=== PATIENT | female | born 1980 | race Caucasian/White ===

== ENCOUNTER → 2017-12-26 | Outpatient (CLI) | payer OTHER ==
--- NOTE | 2017-12-26 14:45 | US ---
EXAMINATION TYPE: US thyroid st tissue head/neck DATE OF EXAM: 12/26/2017 COMPARISON: NONE CLINICAL HISTORY: K11.20 Sialoadenitis, Unspecified. Pain along bilateral jawline x couple months Scanned bilateral jawline and submandibular: bilateral submandibular lymph nodes seen with largest on right = 1.9cm and largest on left = 1.8cm IMPRESSION: 1. Submandibular lymph nodes bilaterally
== END | disposition home or self-care (01) ==
LOC: RADUSWWP 14:02
PROVIDERS: ATTEND Otolaryngology Otolaryngic Allergy
DX: K11.20 Sialoadenitis, unspecified (principal)
CPT/HCPCS: 76536

== ENCOUNTER → 2018-01-21 | Outpatient (CLI) | payer OTHER ==
--- NOTE | 2018-01-21 17:55 | CT ---
EXAMINATION TYPE: CT soft tissue neck w con DATE OF EXAM: 01/21/2018 5:42 PM COMPARISON: NONE HISTORY: Enlarged lymph nodes and salivary gland pain. CT DLP: 637 mGycm Automated exposure control for dose reduction was used. CONTRAST: CT scan of the neck is performed following with IV Contrast, patient injected with 100ml mL of Isovue M300. Axial images are obtained, coronal and sagittal reformatted images are reviewed. FINDINGS: There is normal branching pattern of the great vessels on the aortic arch. There is normal contrast o pacification of the carotid arteries and jugular veins. There is normal contrast in the vertebral art eries. Thyroid gland is symmetric. Submandibular salivary glands are fairly symmetric. Parotid glands are symmetric. I see no significan t cervical adenopathy. There are cervical lymph nodes measure less than 1 cm. Cervical spine show some straightening. Disc spaces are fairly normal. There is slight narrowing at C 5-6 disc space. There is normal aeration of the visualized paranasal sinuses. There is no evidence of an orbital mass . Epiglottis is normal. Subglottic trachea appears normal. There is no evidence of a pharyngeal mass. T he tonsils and adenoids appear normal. IMPRESSION: Negative CT scan of the cervical soft tissues. I see no significant cervical adenopathy.
== END | disposition home or self-care (01) ==
LOC: RADCTMAIN 17:03
PROVIDERS: ATTEND Otolaryngology Otolaryngic Allergy
DX: Z01.818 Encounter for other preprocedural examination (principal); R43.2 Parageusia
CPT/HCPCS: 70491; Q9967

== ENCOUNTER 2018-01-27 05:58 | Inpatient (IN) | payer OTHER ==
[2018-01-27] MEDS ORDERED: MORPHINE SULFATE 4MG/4ML SYRG IVP STA (06:30)
[2018-01-27] MEDS ORDERED: SODIUM CHLORIDE 0.9% 1,000 ML IV STA (06:30)
[2018-01-27] MEDS ORDERED: ONDANSETRON 4 MG/2 ML VIAL IVP STA ×2 (06:30→07:54)
--- NOTE | 2018-01-27 06:33 | ED ---
General Adult HPI - General Source: patient, RN notes reviewed Mode of arrival: ambulatory Limitations: no limitations <Skyler Carbone - Last Filed: 01/27/18 06:34> <Sergio Moura - Last Filed: 01/27/18 09:52> - General Chief complaint: Abdominal Pain Stated complaint: ABD PAIN,NAUSEA Time Seen by Provider: 01/27/18 06:00 - History of Present Illness Initial comments: This is a 37-year-old female presents emergency Department complaining of mid abdominal pain and nausea. Patient states the symptoms started early Saturday and have persisted throughout the weekend. Patient states she didn't eat anything all day Saturday but last night she decided try to eat something and since then her symptoms been worse. Patient denies any vomiting. Patient denies any diarrhea. Patient states she's had a cholecystectomy and gastritis in the past. Patient denies any fevers or chills. Patient denies chest pain difficulty breathing or shortness of breath. Patient denies any dysuria hematuria urinary frequency. Patient denies any back pain. (Skyler Carbone) - Related Data Home Medications Medication Instructions Recorded Confirmed Multivitamins, Thera [Multivitamin 1 tab PO DAILY 01/27/18 01/27/18 (formulary)] buPROPion SR [Wellbutrin Sr] 100 mg PO DAILY 01/27/18 01/27/18 Allergies Allergy/AdvReac Type Severity Reaction Status Date / Time No Known Allergies Allergy Verified 01/27/18 07:05 Review of Systems ROS Other: All systems not noted in ROS Statement are negative. <Skyler Carbone - Last Filed: 01/27/18 06:34> ROS Other: All systems not noted in ROS Statement are negative. <Sergio Moura - Last Filed: 01/27/18 09:52> ROS Statement: Those systems with pertinent positive or pertinent negative responses have been documented in the HPI. Past Medical History Additional Past Medical History / Comment(s): Heart murmur. History of Any Multi-Drug Resistant Organisms: None Reported Past Surgical History: Cholecystectomy Past Psychological History: Anxiety, Depression Smoking Status: Never smoker Past Alcohol Use History: Rare Past Drug Use History: None Reported <Skyler Carbone - Last Filed: 01/27/18 06:34> General Exam Limitations: no limitations <Skyler Carbone - Last Filed: 01/27/18 06:34> - General Exam Comments Initial Comments: GENERAL: Patient is well-developed and well-nourished. Patient is nontoxic and well- hydrated and is in moderate distress. ENT: Neck is soft and supple. No significant lymphadenopathy is noted. Oropharynx is clear. Moist mucous membranes. Neck has full range of motion without eliciting any pain. EYES: The sclera were anicteric and conjunctiva were pink and moist. Extraocular movements were intact and pupils were equal round and reactive to light. Eyelids were unremarkable. PULMONARY: Unlabored respirations. Good breath sounds bilaterally. No audible rales rhonchi or wheezing was noted. CARDIOVASCULAR: There is a regular rate and rhythm without any murmurs gallops or rubs. ABDOMEN: Mild epigastric abdominal pain. No palpable organomegaly was noted. There is no palpable pulsatile mass. SKIN: Skin is clear with no lesions or rashes and otherwise unremarkable. NEUROLOGIC: Patient is alert and oriented x3. Cranial nerves II through XII are grossly intact. Motor and sensory are also intact. Normal speech, volume and content. Symmetrical smile. MUSCULOSKELETAL: Normal extremities with adequate strength and full range of motion. No lower extremity swelling or edema. No calf tenderness. LYMPHATICS: No significant lymphadenopathy is noted PSYCHIATRIC: Normal psychiatric evaluation. Normal interpersonal interactions appears functionally intact in deals appropriately with others. No signs of depression. No signs of anxiety. (Skyler Carbone) Course <Skyler Carbone - Last Filed: 01/27/18 06:34> <Sergio Morua - Last Filed: 01/27/18 09:52> Vital Signs 01/27/18 01/27/18 01/27/18 06:01 06:43 08:37 Temperature 98.3 F Pulse Rate 71 54 L 66 Respiratory 18 16 16 Rate Blood Pressure 135/83 95/61 106/77 O2 Sat by Pulse 100 98 96 Oximetry 01/27/18 09:00 Temperature Pulse Rate 75 Respiratory 16 Rate Blood Pressure 104/61 O2 Sat by Pulse 100 Oximetry - Reevaluation(s) Reevaluation #1: 01/27/18 07:05 Patient's care is signed out at shift change awaiting laboratory studies. ( Sergio Moura) Reevaluation #2: 01/27/18 07:05 On reevaluation, patient has persistent nausea, appears very uncomfortable, was complaining of severe abdominal pain. (Sergio Moura) EKG Findings - EKG Comments: EKG Findings:: EKG: Sinus bradycardia with sinus arrhythmia, rate of 59, WI interval 126, QRS duration 86, QTC 449 <Sergio Moura - Last Filed: 01/27/18 09:52> Medical Decision Making <Skyler Carbone - Last Filed: 01/27/18 06:34> - Lab Data Result diagrams: 01/27/18 06:16 01/27/18 06:16 <Sergio Moura - Last Filed: 01/27/18 09:52> - Medical Decision Making Dr. Moura will take over the care of this patient at 7 AM (Skyler Carbone) CT is performed for this patient with nausea and epigastric abdominal pain. There is significant dilatation of the stomach and proximal duodenum with concern for SMA syndrome. Case is discussed with Dr. Smith, who is able to evaluate the patient emergency department. Patient will be kept nothing by mouth, NG tube in place. Admitted for both surgical and GI consultation. (Sergio Moura) - Lab Data Lab Results 01/27/18 01/27/18 01/27/18 Range/Units 06:16 06:16 06:16 WBC 6.7 (3.8-10.6) k/uL RBC 5.12 (3.80-5.40) m/uL Hgb 14.9 (11.4-16.0) gm/dL Hct 43.6 (34.0-46.0) % MCV 85.2 (80.0-100.0) fL MCH 29.1 (25.0-35.0) pg MCHC 34.2 (31.0-37.0) g/dL RDW 12.8 (11.5-15.5) % Plt Count 269 (150-450) k/uL Neutrophils % 83 % Lymphocytes % 11 % Monocytes % 4 % Eosinophils % 1 % Basophils % 0 % Neutrophils # 5.5 (1.3-7.7) k/uL Lymphocytes # 0.7 L (1.0-4.8) k/uL Monocytes # 0.3 (0-1.0) k/uL Eosinophils # 0.1 (0-0.7) k/uL Basophils # 0.0 (0-0.2) k/uL Sodium 144 (137-145) mmol/L Potassium 4.3 (3.5-5.1) mmol/L Chloride 110 H (98-107) mmol/L Carbon Dioxide 20 L (22-30) mmol/L Anion Gap 14 mmol/L BUN 7 (7-17) mg/dL Creatinine 0.70 (0.52-1.04) mg/dL Est GFR (CKD-EPI)AfAm >90 (>60 ml/min/1.73 sqM) Est GFR (CKD-EPI)NonAf >90 (>60 ml/min/1.73 sqM) Glucose 97 (74-99) mg/dL Plasma Lactic Acid Tee (0.7-2.0) mmol/L Calcium 9.7 (8.4-10.2) mg/dL Total Bilirubin 0.5 (0.2-1.3) mg/dL AST 35 (14-36) U/L ALT 33 (9-52) U/L Alkaline Phosphatase 53 (38-126) U/L Total Protein 7.5 (6.3-8.2) g/dL Albumin 4.5 (3.5-5.0) g/dL Amylase 68 (30-110) U/L Lipase 79 (23-300) U/L Urine Color Light Yellow Urine Appearance Clear (Clear) Urine pH 5.5 (5.0-8.0) Ur Specific [place] 1.004 (1.001-1.035) Urine Protein Negative (Negative) Urine Glucose (UA) Negative (Negative) Urine Ketones Negative (Negative) Urine Blood Negative (Negative) Urine Nitrite Negative (Negative) Urine Bilirubin Negative (Negative) Urine Urobilinogen <2.0 (<2.0) mg/dL Ur Leukocyte Esterase Negative (Negative) Urine HCG, Qual (Not Detectd) Urine Opiates Screen (NotDetected) Ur Oxycodone Screen (NotDetected) Urine Methadone Screen (NotDetected) Ur Propoxyphene Screen (NotDetected) Ur Barbiturates Screen (NotDetected) U Tricyclic Antidepress (NotDetected) Ur Phencyclidine Scrn (NotDetected) Ur Amphetamines Screen (NotDetected) U Methamphetamines Scrn (NotDetected) U Benzodiazepines Scrn (NotDetected) Urine Cocaine Screen (NotDetected) U Marijuana (THC) Screen (NotDetected) 01/27/18 01/27/18 01/27/18 Range/Units 06:16 06:16 06:35 WBC (3.8-10.6) k/uL RBC (3.80-5.40) m/uL Hgb (11.4-16.0) gm/dL Hct (34.0-46.0) % MCV (80.0-100.0) fL MCH (25.0-35.0) pg MCHC (31.0-37.0) g/dL RDW (11.5-15.5) % Plt Count (150-450) k/uL Neutrophils % % Lymphocytes % % Monocytes % % Eosinophils % % Basophils % % Neutrophils # (1.3-7.7) k/uL Lymphocytes # (1.0-4.8) k/uL Monocytes # (0-1.0) k/uL Eosinophils # (0-0.7) k/uL Basophils # (0-0.2) k/uL Sodium (137-145) mmol/L Potassium (3.5-5.1) mmol/L Chloride (98-107) mmol/L Carbon Dioxide (22-30) mmol/L Anion Gap mmol/L BUN (7-17) mg/dL Creatinine (0.52-1.04) mg/dL Est GFR (CKD-EPI)AfAm (>60 ml/min/1.73 sqM) Est GFR (CKD-EPI)NonAf (>60 ml/min/1.73 sqM) Glucose (74-99) mg/dL Plasma Lactic Acid Tee 0.7 (0.7-2.0) mmol/L Calcium (8.4-10.2) mg/dL Total Bilirubin (0.2-1.3) mg/dL AST (14-36) U/L ALT (9-52) U/L Alkaline Phosphatase (38-126) U/L Total Protein (6.3-8.2) g/dL Albumin (3.5-5.0) g/dL Amylase (30-110) U/L Lipase (23-300) U/L Urine Color Urine Appearance (Clear) Urine pH (5.0-8.0) Ur Specific [place] (1.001-1.035) Urine Protein (Negative) Urine Glucose (UA) (Negative) Urine Ketones (Negative) Urine Blood (Negative) Urine Nitrite (Negative) Urine Bilirubin (Negative) Urine Urobilinogen (<2.0) mg/dL Ur Leukocyte Esterase (Negative) Urine HCG, Qual Not Detected (Not Detectd) Urine Opiates Screen Not Detected (NotDetected) Ur Oxycodone Screen Not Detected (NotDetected) Urine Methadone Screen Not Detected (NotDetected) Ur Propoxyphene Screen Not Detected (NotDetected) Ur Barbiturates Screen Not Detected (NotDetected) U Tricyclic Antidepress Not Detected (NotDetected) Ur Phencyclidine Scrn Not Detected (NotDetected) Ur Amphetamines Screen Not Detected (NotDetected) U Methamphetamines Scrn Not Detected (NotDetected) U Benzodiazepines Scrn Not Detected (NotDetected) Urine Cocaine Screen Not Detected (NotDetected) U Marijuana (THC) Screen Detected H (NotDetected) Disposition <Skyler Carbone - Last Filed: 01/27/18 06:34> Decision to Admit Reason: Admit from EC Decision Date: 01/27/18 Decision Time: 09:52 <Sergio Moura - Last Filed: 01/27/18 09:52> Clinical Impression: Small bowel obstruction Disposition: ADMITTED IP TO THIS [facility] Condition: Stable Referrals: Yennifer Mishra MD [Primary Care Provider] - 1-2 days
[2018-01-27 06:40] LABS: Appearance,Urine Clear (Clear); Basophils % (A) 0 %; Bilirubin,Urine Negative (Negative); Blood,Urine Negative (Negative); Color,Urine Light Yellow; Eosinophils # (A) 0.1 k/uL (0-0.7); Eosinophils % (A) 1 %; Glucose,Urine (UA) Negative (Negative); HCT 43.6 % (34.0-46.0); HGB 14.9 gm/dL (11.4-16.0); Ketones,Urine Negative (Negative); Leukocyte Esterase,Urine Negative (Negative); Lymphocytes # (A) 0.7 k/uL (1.0-4.8); Lymphocytes % (A) 11 %; MCH 29.1 pg (25.0-35.0); MCHC 34.2 g/dL (31.0-37.0); MCV 85.2 fL (80.0-100.0); Monocytes # (A) 0.3 k/uL (0-1.0); Monocytes % (A) 4 %; Neutrophils # (A) 5.5 k/uL (1.3-7.7); Neutrophils % (A) 83 %; Nitrite,Urine Negative (Negative); PH, Urine 5.5 (5.0-8.0); Platelet Count 269 k/uL (150-450); Protein,Urine Negative (Negative); RBC 5.12 m/uL (3.80-5.40); RDW 12.8 % (11.5-15.5); Specific Gravity,Urine 1.004 (1.001-1.035); Urobilinogen,Urine <2.0 mg/dL (<2.0); WBC 6.7 k/uL (3.8-10.6)
[2018-01-27 06:51] LABS: ALT 33 U/L (9-52); AST 35 U/L (14-36); Albumin 4.5 g/dL (3.5-5.0); Alkaline Phosphatase 53 U/L (38-126); Amylase 68 U/L (30-110); Anion Gap 14 mmol/L; Blood Urea Nitrogen 7 mg/dL (7-17); Calcium 9.7 mg/dL (8.4-10.2); Carbon Dioxide 20 mmol/L (22-30); Chloride 110 mmol/L (98-107); Glucose 97 mg/dL (74-99); Lipase 79 U/L (23-300); Potassium 4.3 mmol/L (3.5-5.1); Sodium 144 mmol/L (137-145); Total Bilirubin 0.5 mg/dL (0.2-1.3); Total Protein 7.5 g/dL (6.3-8.2)
--- NOTE | 2018-01-27 06:55 | XR ---
EXAM: XR Abdomen, 1 View CLINICAL HISTORY: ITS.REASON XR Reason: abdominal pain TECHNIQUE: Frontal supine view of the abdomen/pelvis. COMPARISON: No relevant prior studies available. FINDINGS: Gastrointestinal tract: Unremarkable. No dilation. Organs: Cholecystectomy noted. Bones/joints: Unremarkable. IMPRESSION: No acute findings.
[2018-01-27] MEDS ORDERED: FAMOTIDINE 20 MG/2 ML VIAL IV STA (07:02)
[2018-01-27] MEDS ORDERED: MAG HYDROX/AL HYDROX/SIMETH 30 ML, HYOSCYAMINE ELIXIR 10 ML, CIMETIDINE HCL 300 MG, LID... PO STA ×4 (07:03)
[2018-01-27] MEDS ORDERED: IOPAMIDOL-300 CONTRAST 30 ML VIAL (ORAL USE) PO PRN (07:07)
[2018-01-27] MEDS ORDERED: RX INFO: IV CONTRAST WAS GIVEN 1 EACH MISC MISCELLANE PRN (07:07)
--- NOTE | 2018-01-27 08:06 | CT ---
EXAMINATION TYPE: CT abdomen pelvis w con DATE OF EXAM: 01/27/2018 COMPARISON: NONE HISTORY: 37-year-old female Pain, constipation TECHNIQUE: Contiguous axial scanning of the abdomen and pelvis following administration of 100 ml Omn ipaque 300 IV contrast. Delayed images through the kidneys and coronal/sagittal reconstructions perf ormed. Patient declined the oral prep. CT DLP: 454.6 mGycm Automated exposure control for dose reduction was used. FINDINGS: Heart normal size without pericardial effusion. Lung bases clear without pleural effusion. Prominent ingested fluid and debris distending the stomach. The duodenum is also fluid distended selam uring up to 3.6 cm. Relative narrowing at the third portion of the duodenum. The aorto mesenteric dis tance is 7 mm (decreased), axial image 34, and an aortomesenteric angle 33 degrees which is low emilia l. Some focal fat along the anterior falciform ligament. Mild prominence to the bile ducts status post c holecystectomy. Portal venous system is patent. Adrenal glands, kidneys, spleen, pancreas show no gross abnormality. Scattered nonenlarged couple bor derline sized mesenteric lymph nodes measuring up to 6 mm, for example, axial image 42. Prominent fluid filled small bowel loops in the lower abdomen and pelvis without any transition point or abnormal dilatation of these bowel loops. Colonic stool is present primarily in the rectum. There is mild to moderate stool. No free fluid or free air. Bladder is urine distended. Uterus and left ovary are visualized. Right ovary not clearly indicated f rom adjacent bowel loops. No abnormal fluid collection in the pelvis or evidence of pelvic lymphadeno torres. Bones: No osseous destructive process. IMPRESSION: 1. MARKED DISTENTION OF THE STOMACH WITH FLUID AND INGESTED DEBRIS. THERE IS ALSO FLUID DISTENTION WI TH MILD DILATATION OF THE DUODENUM BUT WITH CALIBER CHANGE AT THE THIRD PORTION OF THE DUODENUM. FIND INGS BY OBJECTIVE MEASURES ARE EQUIVOCAL FOR SMA/NUTCRACKER SYNDROME. CORRELATE TO THE TIME SINCE PATIENT'S ORAL INTAKE ESPECIALLY SINCE PATIENT DECLINED RECEIVING ORAL CONTRAST. FURTHER CLINICAL CO RRELATION RECOMMENDED FOR THE POSSIBILITY OF SMA SYNDROME. 2. PROMINENT FLUID-FILLED SMALL BOWEL LOOPS IN THE LOWER ABDOMEN AND PELVIS COULD REFLECT ENTERITIS. 3. COLONIC STOOL IS LIMITED PRIMARILY TO THE RECTUM WHERE THERE IS MILD TO MODERATE AMOUNT OF STOOL.
[2018-01-27] MEDS ORDERED: METOCLOPRAMIDE 5 MG/ML 2 ML VIAL IVP STA (08:13)
[2018-01-27 08:33] LABS: Amphetamine Screen,Urine Not Detected (NotDetected); Barbiturate Screen,Urine Not Detected (NotDetected); Benzodiazepines Screen,Urine Not Detected (NotDetected); Cocaine Screen,Urine Not Detected (NotDetected); Methadone Screen, Urine Not Detected (NotDetected); Opiate Screen,Urine Not Detected (NotDetected); Oxycodone Screen, Urine Not Detected (NotDetected); Phencyclidine Screen,Urine Not Detected (NotDetected); Tricyclic Antidepressant,Urine Not Detected (NotDetected); Urn Cannabinoid Scrn Detected (NotDetected)
[2018-01-27] MEDS ORDERED: NALOXONE 0.4 MG/ML 1 ML VIAL IV PRN (09:46)
[2018-01-27] MEDS ORDERED: ONDANSETRON 4 MG/2 ML VIAL IVP PRN (09:46)
--- NOTE | 2018-01-27 09:53 | P.GSCN ---
History of Present Illness Consult date: 01/27/18 Reason for Consult: Abdominal pain, partial bowel obstruction History of present illness: The patient is a 37-year-old white female who states that approximately 3 days ago she began having midepigastric abdominal pain. She states the pain became progressively worse when she tried to eat. She complains of nausea but no vomiting. She has not had a bowel movement for approximately 3 days. She states she has had no recent weight loss and was approximately 145 pounds. She denies any fever. A CAT scan was performed which reveals marked gastric dilatation with a dilatation of the small bowel to the third portion of the duodenum near the area of the superior mesenteric artery. An NG tube was placed and over thousand cc of liquid fluid was obtained. The patient had immediate decrease in her abdominal discomfort. Past surgical history: 1. Hemorrhoidectomy 2. Cholecystectomy Past medical history: Negative Medications: Wellbutrin Multivitamin ALLERGIES: Negative Reproductive history: Mr. Marcia Rousseau regular she is due to. Now 2 pregnancies 2 abortions Social history: Smoking: Negative Alcohol: Rarely Recreational drugs: Negative Review of systems: HEENT: Patient provided infection being followed by an ENT doctor at [facility] Lungs: Negative Heart: Murmur GI: As above : Urinary tract infections in the past Review of Systems - Constitutional Reports as per HPI - EENT EENT Comment(s): States that she has been recently diagnosed with a infection in the salivary glands in his following with an ENT doctor - Cardiovascular Cardiovascular Comment(s): History of a murmur Reports as per HPI - Respiratory Reports as per HPI - Gastrointestinal Reports as per HPI - Genitourinary Genitourinary: Reports as per HPI - Psychiatric Reports depression Past Medical History Additional Past Medical History / Comment(s): Heart murmur. History of Any Multi-Drug Resistant Organisms: None Reported Past Surgical History: Cholecystectomy Additional Past Surgical History / Comment(s): Hemorrhoidectomy Past Psychological History: Anxiety, Depression Smoking Status: Never smoker Past Alcohol Use History: Rare Past Drug Use History: None Reported Medications and Allergies Home Medications Medication Instructions Recorded Confirmed Type Multivitamins, Thera [Multivitamin 1 tab PO DAILY 01/27/18 01/27/18 History (formulary)] buPROPion SR [Wellbutrin Sr] 100 mg PO DAILY 01/27/18 01/27/18 History Allergies Allergy/AdvReac Type Severity Reaction Status Date / Time No Known Allergies Allergy Verified 01/27/18 07:05 Surgical - Exam Vital Signs Temp Pulse Resp BP Pulse Ox 98.3 F 71 18 135/83 100 01/27/18 06:01 01/27/18 06:01 01/27/18 06:01 01/27/18 06:01 01/27/18 06:01 - General White female in moderate distress NG tube in place moderate distress - Eyes normal ocular movement - ENT normal pinna, normal nares, no hearing loss, no congestion - Neck [place] bilateral cervical adenopathy nothing worrisome no masses, trachea midline, no venous distension - Respiratory normal expansion, normal respiratory effort, clear to auscultation - Cardiovascular Rhythm: regular Heart Sounds: normal: S1, S2 - Abdomen No guarding or rebound Decreased bowel sounds No hepatomegaly or splenomegaly Abdomen: soft - Rectum External skin tag Positive stool in rectal vault Rectum: normal sphincter tone, no masses - Integumentary no rash - Neurologic normal coordination - Psychiatric oriented to time, oriented to person, oriented to place, speech is normal Results - Labs 01/27/18 06:16 01/27/18 06:16 Abnormal Lab Results - Last 24 Hours (Table) 01/27/18 01/27/18 01/27/18 Range/Units 06:16 06:16 06:16 Lymphocytes # 0.7 L (1.0-4.8) k/uL Chloride 110 H (98-107) mmol/L Carbon Dioxide 20 L (22-30) mmol/L U Marijuana (THC) Screen Detected H (NotDetected) Diabetes panel 01/27/18 Range/Units 06:16 Sodium 144 (137-145) mmol/L Potassium 4.3 (3.5-5.1) mmol/L Chloride 110 H (98-107) mmol/L Carbon Dioxide 20 L (22-30) mmol/L BUN 7 (7-17) mg/dL Creatinine 0.70 (0.52-1.04) mg/dL Glucose 97 (74-99) mg/dL Calcium 9.7 (8.4-10.2) mg/dL AST 35 (14-36) U/L ALT 33 (9-52) U/L Alkaline Phosphatase 53 (38-126) U/L Total Protein 7.5 (6.3-8.2) g/dL Albumin 4.5 (3.5-5.0) g/dL Calcium panel 01/27/18 Range/Units 06:16 Calcium 9.7 (8.4-10.2) mg/dL Albumin 4.5 (3.5-5.0) g/dL Pituitary panel 01/27/18 Range/Units 06:16 Sodium 144 (137-145) mmol/L Potassium 4.3 (3.5-5.1) mmol/L Chloride 110 H (98-107) mmol/L Carbon Dioxide 20 L (22-30) mmol/L BUN 7 (7-17) mg/dL Creatinine 0.70 (0.52-1.04) mg/dL Glucose 97 (74-99) mg/dL Calcium 9.7 (8.4-10.2) mg/dL Adrenal panel 01/27/18 Range/Units 06:16 Sodium 144 (137-145) mmol/L Potassium 4.3 (3.5-5.1) mmol/L Chloride 110 H (98-107) mmol/L Carbon Dioxide 20 L (22-30) mmol/L BUN 7 (7-17) mg/dL Creatinine 0.70 (0.52-1.04) mg/dL Glucose 97 (74-99) mg/dL Calcium 9.7 (8.4-10.2) mg/dL Total Bilirubin 0.5 (0.2-1.3) mg/dL AST 35 (14-36) U/L ALT 33 (9-52) U/L Alkaline Phosphatase 53 (38-126) U/L Total Protein 7.5 (6.3-8.2) g/dL Albumin 4.5 (3.5-5.0) g/dL - Imaging CT scan - abdomen: report reviewed, image reviewed CT scan - pelvis: report reviewed, image reviewed Assessment and Plan Assessment: Impression/plan: 1. Obstruction at the third portion of the duodenum, question SMA syndrome, or other etiology of obstruction 2. Depression 3. Positive drug screen for marijuana although patient denied use of marijuana Plan: 1. NG decompression 2. GI consultation 3. IV hydration
[2018-01-27] MEDS ORDERED: MORPHINE SULFATE 4MG/4ML SYRG IVP PRN (10:06)
[2018-01-27] MEDS: SODIUM CHLORIDE 0.9% 1,000 ML IV SCH (11:00)
--- NOTE | 2018-01-27 11:52 | P.CONS ---
History of Present Illness - Reason for Consult Consult date: 01/27/[address] Requesting physician: Yennifer Mishra - History of Present Illness 37-year-old female admitted with 3 day history acute midepigastric abdominal pain unable to pass bowel movements or flatus with nausea. Patient has a history of hemorrhoidectomy a few years ago that resulted in a post hemorrhoidectomy ileus. She also has a history of cholecystectomy. Patient denies hematemesis hematochezia melena weight loss, fever or chills. No emesis. Intermittent reflux no history of documented peptic ulcer disease. Abdominal pain exacerbates with eating. No history of gastric/bowel surgeries. Admission white count 6.7. Hemoglobin 14.9. BUN 17 creatinine 0.7. LFTs within normal limits. HCG negative. CT abdomen and pelvis with IV contrast only reported prominent ingested fluid and debris distending the stomach. Duodenum is fluid distended measuring up to 3.6 cm with relative narrowing at the third portion of the duodenum with caliber change. Not enlarged scattered borderline mesenteric lymph nodes measuring up to 6 mm. Prominent fluid-filled small bowel loops in the lower abdomen and pelvis without transition point. Colonic stool is present primarily in the rectum. Findings by objective measures are equivocal for SMA nutcracker syndrome. NG tube insertion post CT with 1600 mL thick cream consistency brown colored gastric return. Review of Systems Constitutional: Denies fever, chills, sweats, weight gain, or loss. HEENT: Negative for migraines, blurred vision or loss, earaches, drainage, tinnitus, oral mucosal lesions, dysphagia, or odynophagia. CARDIAC: Negative for chest pain, arrhythmias, or palpitation. RESPIRATORY: Negative for shortness of breath, hemoptysis, cough, or sputum production. GI: See HPI for pertinent findings. : Negative for hematuria, urgency, frequency, polyuria, or dysuria. GYNc: Denies possibility of . Negative vaginal discharge. MUSCULOSKELETAL: Negative for muscle aches, swelling, arthritis, and arthralgias. NEUROLOGIC: Negative for stroke or TIA. ENDOCRINE: Negative for thyroid problems. SKIN: Negative for rash or itching. 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 History of Any Multi-Drug Resistant Organisms: None Reported Past Surgical History: Cholecystectomy Additional Past Surgical History / Comment(s): Hemorrhoidectomy, EGD, colonoscopy. Past Anesthesia/Blood Transfusion Reactions: Postoperative Nausea & Vomiting ( PONV) Smoking Status: Never smoker - Past Family History Mother Additional Family Medical History / Comment(s): Mother has Lyme's dx. Father History Unknown: Yes Additional Family Medical History / Comment(s): Biological father left when pt was a little girl. Medications and Allergies Home Medications Medication Instructions Recorded Confirmed Type Multivitamins, Thera [Multivitamin 1 tab PO DAILY 01/27/18 01/27/18 History (formulary)] buPROPion SR [Wellbutrin Sr] 100 mg PO DAILY 01/27/18 01/27/18 History Allergies Allergy/AdvReac Type Severity Reaction Status Date / Time No Known Allergies Allergy Verified 01/27/18 11:01 Physical Exam Vitals: Vital Signs Temp Pulse Pulse Resp BP BP Pulse Ox 01/27/18 11:20 98 F 55 L 16 108/66 100 01/27/18 10:10 76 16 112/56 100 01/27/18 09:00 75 16 104/61 100 01/27/18 08:37 66 16 106/77 96 01/27/18 06:43 54 L 16 95/61 98 01/27/18 06:01 98.3 F 71 18 135/83 100 Intake and Output 01/26/18 01/27/18 01/27/18 22:59 06:59 14:59 Output Total 1400 Balance -1400 Output: Gastric Drainage 1400 Other: Weight 68.039 kg General appearance: The patient is alert, oriented, in no acute distress. HET: Head is normocephalic and atraumatic. Pupils are equal and reactive. Oropharynx is clear without lesions. NG-tube with thick cream brown gastric contents. Neck: Supple without lymphadenopathy. Trachea midline. Heart: S1 S2. Regular rate and rhythm. Lungs: No crackles or wheezes are heard. Abdomen: Soft,tenderness midepigastriumr, nondistended with bowel sounds. No peritoneal signs. No palpable organomegaly or masses. Extremities: Normal skin color and turgor. No cyanosis, rash, ulceration, clubbing, or edema. Radial and pedal pulses are 2/4 bilaterally. Neurological: No focal deficits. Strength and sensation are grossly intact. Results CBC & Chem 7: 01/27/18 06:16 01/27/18 06:16 Labs: Abnormal Lab Results - Last 24 Hours (Table) 01/27/18 01/27/18 01/27/18 Range/Units 06:16 06:16 06:16 Lymphocytes # 0.7 L (1.0-4.8) k/uL Chloride 110 H (98-107) mmol/L Carbon Dioxide 20 L (22-30) mmol/L U Marijuana (THC) Screen Detected H (NotDetected) CT scan - abdomen: report reviewed (Dr. Iglesias) Assessment and Plan (1) Abdominal pain Narrative/Plan: 37-year-old female presents with acute abdominal pain unable to pass flatus or stool with CT imaging reported marked distention of the stomach with fluid and ingested debris with dilation of the duodenum with caliber change at the third portion possible SMA possible nutcracker syndrome possible underlying stricture disease possible neoplasm cannot be excluded. Current Visit: Yes Status: Acute Code(s): R10.9 - UNSPECIFIED ABDOMINAL PAIN SNOMED Code(s): 63824022 Plan: 1. Continue with NG tube decompression. EGD evaluation. Protonix 40 mg IV daily. General surgery consult recommendations appreciated. We'll continue to follow with you. The clinical studies specialist has discussed the risks, benefits and alternative therapies for the above-mentioned procedure and for both sedation/analgesia as well as necessary blood product administration, if indicated, as they pertain to this patient. The patient has indicated understanding and acceptance of the risks and procedures discussed. Thank you for this kind referral and the opportunity to participate in the care of your patient. This consultation was discussed with Dr. Iglesias. The impression and plan of care have been directed as dictated.
[2018-01-27] MEDS: PANTOPRAZOLE 40 MG/10 ML VIAL IVP SCH (12:25)
[2018-01-27] MEDS ORDERED: PROPOFOL 10 MG/ML 20 ML VIAL IV ONE (14:06)
[2018-01-27] MEDS ORDERED: ONDANSETRON 4 MG/2 ML VIAL ONE (14:06)
[2018-01-27] MEDS ORDERED: IV FLUID CONTINUATION 1,000 ML IV ONE (14:12)
[2018-01-27] MEDS ORDERED: hydrOXYzine PAMOATE 25 MG CAP PO PRN (15:24)
[2018-01-27] MEDS: ONDANSETRON 4 MG/2 ML VIAL IVP PRN ×2 (15:36→20:40)
--- NOTE | 2018-01-27 15:42 | P.HPIM ---
History of Present Illness H&P Date: 01/27/18 Chief Complaint: Abdominal pain abdominal distention and vomiting This is a 37-year-old pleasant lady patient known to my practice, underlying history of GERD, osteoarthritis, heart murmur, chronic Reginald-Leon, admitted to the emergency room secondary to persistent abdominal pain for 4-5 days duration. Patient has symptoms worsened by food, no fever no chills, patient has abdominal cramping thereafter started to have some vomitus, which is brown nonbilious, nonbloody. Patient Had off-and-on gastritis in the past, she tried she tried one hit off marijuana, from her friend, to relieve her symptoms and did not get any better, [id number] medications did not help, patient was subsequently seen emergency room. Previous meal consisted of cookies yogurt ice cream, patient had difficulty with distention, abdominal pain, and nausea and vomiting. 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 NG tube was placed, draining approximately 1.5 L of gastric contents, nonbloody, brown digested material, Patient was was seen by GI services, with plans for EGD today to evaluate for duodenal strictures. Review of Systems Constitutional: Reports as per HPI, Denies anorexia, Denies chills, Denies chronic headaches, Denies chronic pain, Denies daytime sleepiness, Denies fatigue, Denies fever, Denies lethargy, Denies malaise, Denies night sweats, Denies poor appetite, Denies sweats, Denies weakness, Denies weight gain, Denies weight loss Ears, nose, mouth and throat: Reports as per HPI, Denies ant. neck pain, Denies bleeding gums, Denies dental pain, Denies dysphagia, Denies epistaxis, Denies headache, Denies hoarseness, Denies mouth pain, Denies nasal congestion, Denies nasal discharge, Denies neck fullness/pressure, Denies neck lump, Denies nose pain, Denies odynophagia, Denies post-nasal drip, Denies sinus pain, Denies sinus pressure, Denies swelling in mouth, Denies swelling in throat, Denies sore throat, Denies vertigo, Denies voice changes Cardiovascular: Reports as per HPI, Denies chest pain, Denies claudication, Denies decreased exercise tolerance, Denies dyspnea on exertion, Denies edema, Denies high blood pressure, Denies irregular heart beat, Denies leg edema, Denies lightheadedness, Denies orthopnea, Denies palpitations, Denies paroxysmal nocturnal dyspnea, Denies phlebitis, Denies rapid heart beat, Denies shortness of breath, Denies syncope Respiratory: Denies as per HPI, Denies congestion, Denies cough, Denies cough with sputum, Denies dyspnea, Denies excessive sputum, Denies hemoptysis, Denies home oxygen, Denies pain, Denies pain on inspiration, Denies pleurisy, Denies respiratory infections, Denies sleep apnea, Denies snoring, Denies wheezing Gastrointestinal: Reports as per HPI, Reports bloating, Reports constipation, Reports dyspepsia, Reports early satiety, Reports indigestion, Reports loss of appetite, Reports nausea, Reports vomiting, Denies abdominal pain, Denies belching, Denies BRBPR, Denies change in bowel habits, Denies coffee ground emesis, Denies diarrhea, Denies excessive gas, Denies heartburn, Denies hematemesis, Denies hematochezia, Denies jaundice, Denies lactose intolerance, Denies melena Genitourinary: Reports as per HPI, Denies abnormal vaginal bleeding, Denies decreased libido, Denies difficulty conceiving, Denies difficulty voiding, Denies dysmenorrhea, Denies dyspareunia, Denies dysuria, Denies flank pain, Denies genital sores, Denies hematuria, Denies hot flashes, Denies incomplete emptying, Denies kidney stones, Denies menorrhagia, Denies mixed incontinence, Denies nocturia, Denies pelvic pain, Denies post void dribbling, Denies , Denies prolapse symptoms, Denies stress incontinence, Denies urge incontinence , Denies urgency, Denies urinary frequency, Denies vaginal discharge, Denies vaginal dryness, Denies vaginal itching, Denies vaginal odor Menstruation: Reports as per HPI, Denies amenorrhea, Denies amenorrhea on BC, Denies currently menstrual, Denies cycle < 21 days, Denies cycle > 35 days, Denies cycle variable, Denies menses 1-7 days, Denies menses 8 or > days, Denies menses variable, Denies period heavy, Denies period light, Denies period normal, Denies period spotting, Denies post hysterectomy, Denies postmenopausal , Denies premenarcheal Integumentary: Reports as per HPI, Denies acne, Denies boils, Denies brittle nails, Denies change in hair/nails, Denies color changes, Denies darkening of skin, Denies depigmentation, Denies dryness, Denies foot/leg ulcers, Denies growths, Denies hirsutism, Denies lesions, Denies onychomycosis, Denies pruritus , Denies rash, Denies sores, Denies striae, Denies unusual bruising, Denies wounds Neurological: Reports as per HPI, Denies aphasia, Denies ataxia, Denies balance difficulties, Denies burning pain, Denies change in mentation, Denies change in smell/taste, Denies change in speech, Denies confusion, Denies convulsions, Denies double vision, Denies gait dysfunction, Denies head injury, Denies headaches, Denies hearing difficulties, Denies lack of coordination, Denies loss of vision, Denies memory loss, Denies migraines, Denies motor disturbance, Denies numbness, Denies paralysis, Denies paresthesias, Denies seizures, Denies sensory deficit, Denies spasticity, Denies syncope, Denies tic, Denies tingling , Denies transient paralysis, Denies tremors, Denies vertigo, Denies weakness, Denies visual changes Psychiatric: Reports as per HPI, Denies anhedonia, Denies anxiety, Denies anxiety attacks, Denies change in appetite, Denies change in libido, Denies change in sleep habits, Denies confusion, Denies depression, Denies difficulty concentrating, Denies disorientation, Denies hallucinations, Denies hopelessness , Denies hypersomnia, Denies insomnia, Denies irritability, Denies memory loss, Denies mood swings, Denies paranoia, Denies sadness/tearfulness, Denies sleep disturbances, Denies suicidal ideation Endocrine: Reports as per HPI, Denies cold intolerance, Denies deepening of the voice, Denies excessive sweating, Denies excessive thirst, Denies fatigue, Denies flushing, Denies heat intolerance, Denies high blood sugars, Denies increase in ring/shoe/hat size, Denies low blood sugars, Denies nocturia, Denies palpitations, Denies polydipsia, Denies polyphagia, Denies polyuria, Denies proptosis, Denies recent glucocorticoid use, Denies thyroid mass, Denies weight change Hematologic/Lymphatic: Reports as per HPI Allergic/Immunologic: Reports as per HPI, Denies allergic rhinitis, Denies anaphylaxis, Denies angioedema, Denies gluten intolerance, Denies persistent infections, Denies seasonal allergies, Denies urticaria, Denies wheezing Past Medical History Past Medical History: GERD/Reflux, Osteoarthritis (OA) Additional Past Medical History / Comment(s): Heart murmur, chronic Reginald Leon , 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 History of Any Multi-Drug Resistant Organisms: None Reported Past Surgical History: Cholecystectomy Additional Past Surgical History / Comment(s): Hemorrhoidectomy, EGD, colonoscopy. Past Anesthesia/Blood Transfusion Reactions: Postoperative Nausea & Vomiting ( PONV) Smoking Status: Former smoker (Smoked one to 2 cigarettes during her teenage years, episodic use of marijuana she used to carry a marijuana card, none for several years now.) - Past Family History Mother History Unknown: Yes (Lyme disease, CAD, pericardial effusion) Additional Family Medical History / Comment(s): Mother has Lyme's dx. Father History Unknown: Yes Additional Family Medical History / Comment(s): Biological father left when pt was a little girl. Brother(s) History Unknown: Yes (Healthy no problems) Sister(s) History Unknown: Yes (No sisters no daughters no sons) Medications and Allergies Home Medications Medication Instructions Recorded Confirmed Type Multivitamins, Thera [Multivitamin 1 tab PO DAILY 01/27/18 01/27/18 History (formulary)] buPROPion SR [Wellbutrin Sr] 100 mg PO DAILY 01/27/18 01/27/18 History Allergies Allergy/AdvReac Type Severity Reaction Status Date / Time No Known Allergies Allergy Verified 01/27/18 11:01 Physical Exam Vitals: Vital Signs Temp Pulse Resp BP Pulse Ox 01/27/18 10:10 76 16 112/56 100 01/27/18 09:00 75 16 104/61 100 01/27/18 08:37 66 16 106/77 96 01/27/18 06:43 54 L 16 95/61 98 01/27/18 06:01 98.3 F 71 18 135/83 100 Intake and Output 01/26/18 01/27/18 01/27/18 22:59 06:59 14:59 Output Total 1400 Balance -1400 Output: Gastric Drainage 1400 Other: Weight 68.039 kg - Constitutional General appearance: cooperative, no acute distress - EENT Eyes: anicteric sclerae, dentition normal ENT: NA/AT, normal oropharynx - Neck Neck: normal ROM - Respiratory Respiratory: bilateral: CTA, negative: diminished, dullness, rales, rhonchi, wheezing - Cardiovascular Rhythm: regular Heart sounds: normal: S1, S2 Abnormal Heart Sounds: no systolic murmur, no diastolic murmur, no rub, no S3 Gallop, no S4 Gallop, no click, no other - Gastrointestinal NG tube in place with light brown to medium brown gastric contents, very condensed/thickened in consistency, which make you suspect about fecaloid material, however patient had cookies ice cream and yogurt prior to getting sick General gastrointestinal: decreased bowel sounds, soft Results CBC & Chem 7: 01/27/18 06:16 01/27/18 06:16 Labs: Abnormal Lab Results - Last 24 Hours (Table) 01/27/18 01/27/18 01/27/18 Range/Units 06:16 06:16 06:16 Lymphocytes # 0.7 L (1.0-4.8) k/uL Chloride 110 H (98-107) mmol/L Carbon Dioxide 20 L (22-30) mmol/L U Marijuana (THC) Screen Detected H (NotDetected) Laboratory Results WBC 6.7 k/uL (3.8-10.6) 01/27/18 06:16 RBC 5.12 m/uL (3.80-5.40) 01/27/18 06:16 Hgb 14.9 gm/dL (11.4-16.0) 01/27/18 06:16 Hct 43.6 % (34.0-46.0) 01/27/18 06:16 MCV 85.2 fL (80.0-100.0) 01/27/18 06:16 MCH 29.1 pg (25.0-35.0) 01/27/18 06:16 MCHC 34.2 g/dL (31.0-37.0) 01/27/18 06:16 RDW 12.8 % (11.5-15.5) 01/27/18 06:16 Plt Count 269 k/uL (150-450) 01/27/18 06:16 Neutrophils % 83 % 01/27/18 06:16 Lymphocytes % 11 % 01/27/18 06:16 Monocytes % 4 % 01/27/18 06:16 Eosinophils % 1 % 01/27/18 06:16 Basophils % 0 % 01/27/18 06:16 Neutrophils # 5.5 k/uL (1.3-7.7) 01/27/18 06:16 Lymphocytes # 0.7 k/uL (1.0-4.8) L 01/27/18 06:16 Monocytes # 0.3 k/uL (0-1.0) 01/27/18 06:16 Eosinophils # 0.1 k/uL (0-0.7) 01/27/18 06:16 Basophils # 0.0 k/uL (0-0.2) 01/27/18 06:16 Sodium 144 mmol/L (137-145) 01/27/18 06:16 Potassium 4.3 mmol/L (3.5-5.1) 01/27/18 06:16 Chloride 110 mmol/L (98-107) H 01/27/18 06:16 Carbon Dioxide 20 mmol/L (22-30) L 01/27/18 06:16 Anion Gap 14 mmol/L 01/27/18 06:16 BUN 7 mg/dL (7-17) 01/27/18 06:16 Creatinine 0.70 mg/dL (0.52-1.04) 01/27/18 06:16 Est GFR (CKD-EPI)AfAm >90 (>60 ml/min/1.73 sqM) 01/27/18 06:16 Est GFR (CKD-EPI)NonAf >90 (>60 ml/min/1.73 sqM) 01/27/18 06:16 Glucose 97 mg/dL (74-99) 01/27/18 06:16 Plasma Lactic Acid Tee 0.7 mmol/L (0.7-2.0) 01/27/18 06:35 Calcium 9.7 mg/dL (8.4-10.2) 01/27/18 06:16 Total Bilirubin 0.5 mg/dL (0.2-1.3) 01/27/18 06:16 AST 35 U/L (14-36) 01/27/18 06:16 ALT 33 U/L (9-52) 01/27/18 06:16 Alkaline Phosphatase 53 U/L (38-126) 01/27/18 06:16 Total Protein 7.5 g/dL (6.3-8.2) 01/27/18 06:16 Albumin 4.5 g/dL (3.5-5.0) 01/27/18 06:16 Amylase 68 U/L (30-110) 01/27/18 06:16 Lipase 79 U/L (23-300) 01/27/18 06:16 Urine Color Light Yellow 01/27/18 06:16 Urine Appearance Clear (Clear) 01/27/18 06:16 Urine pH 5.5 (5.0-8.0) 01/27/18 06:16 Ur Specific [place] 1.004 (1.001-1.035) 01/27/18 06:16 Urine Protein Negative (Negative) 01/27/18 06:16 Urine Glucose (UA) Negative (Negative) 01/27/18 06:16 Urine Ketones Negative (Negative) 01/27/18 06:16 Urine Blood Negative (Negative) 01/27/18 06:16 Urine Nitrite Negative (Negative) 01/27/18 06:16 Urine Bilirubin Negative (Negative) 01/27/18 06:16 Urine Urobilinogen <2.0 mg/dL (<2.0) 01/27/18 06:16 Ur Leukocyte Esterase Negative (Negative) 01/27/18 06:16 Urine HCG, Qual Not Detected (Not Detectd) 01/27/18 06:16 Urine Opiates Screen Not Detected (NotDetected) 01/27/18 06:16 Ur Oxycodone Screen Not Detected (NotDetected) 01/27/18 06:16 Urine Methadone Screen Not Detected (NotDetected) 01/27/18 06:16 Ur Propoxyphene Screen Not Detected (NotDetected) 01/27/18 06:16 Ur Barbiturates Screen Not Detected (NotDetected) 01/27/18 06:16 U Tricyclic Antidepress Not Detected (NotDetected) 01/27/18 06:16 Ur Phencyclidine Scrn Not Detected (NotDetected) 01/27/18 06:16 Ur Amphetamines Screen Not Detected (NotDetected) 01/27/18 06:16 U Methamphetamines Scrn Not Detected (NotDetected) 01/27/18 06:16 U Benzodiazepines Scrn Not Detected (NotDetected) 01/27/18 06:16 Urine Cocaine Screen Not Detected (NotDetected) 01/27/18 06:16 U Marijuana (THC) Screen Detected (NotDetected) H 01/27/18 06:16 Thrombosis Risk Factor Assmnt - DVT/VTE Prophylaxis DVT/VTE Prophylaxis: Low risk, early ambulation encouraged - Choose All That Apply Any of the Below Risk Factors Present?: No Other Risk Factors: No Other congenital or acquired thrombophilia - If yes, enter type in comment: No Thrombosis Risk Factor Assessment Level: Very Low Risk Assessment and Plan Plan: 1. Duodenal narrowing 2 species for duodenal strictures causing significant gastric outlet obstruction, patient would undergo EGD today, she currently has an NG tube draining brownish fluid digestedfood, nausea and vomiting medication for symptom relief, Dr. Lorenz has been consulted, Dr. Kathie Cook has been consulted. 2. Dysthymia currently on Wellbutrin, no medication changes 3. History of GERD and not requiring any PPIs prior to admission or H2 blockers 4. Electrolyte abnormalities with hyperchloremia, IV fluids for hydration and Tylenol labs BMI 22 DVT prophylaxis low risk early ambulation GI prophylaxis, H2 blockers Nondependent marijuana use
--- NOTE | 2018-01-27 15:43 | P.PCN ---
Date of Procedure: 01/27/18 Procedure(s) Performed: Procedure: Esophagogastroduodenoscopy Preoperative diagnosis: Suspected gastric outlet obstruction. Postoperative diagnosis: Hiatal hernia and NG tube trauma but no obvious abnormalities or obstructing lesion to the transverse duodenum. Preparation and sedation: Was provided by anesthesia. Brief clinical history: The patient is a 37-year-old female admitted with 3 day history acute midepigastric abdominal pain, unable to pass bowel movements or flatus with nausea. Patient has a history of hemorrhoidectomy a few years ago that resulted in a post hemorrhoidectomy ileus. She also has a history of cholecystectomy. Patient denies hematemesis, hematochezia, melena, weight loss , fever or chills. No emesis. She gave history of intermittent reflux but no history of documented peptic ulcer disease. Abdominal pain exacerbates with eating. No history of gastric/bowel surgeries. Admission white count 6.7. Hemoglobin 14.9. BUN 17 creatinine 0.7. LFTs within normal limits. HCG negative. CT of the abdomen and pelvis with IV contrast only reported prominent ingested fluid and debris distending the stomach. Duodenum is fluid distended measuring up to 3.6 cm with relative narrowing at the third portion of the duodenum with caliber change. There were not enlarged scattered, borderline mesenteric lymph nodes measuring up to 6 mm. Prominent fluid-filled small bowel loops in the lower abdomen and pelvis without transition point. Colonic stool is present primarily in the rectum. Findings by objective measures are equivocal for SMA syndrome. NG tube insertion post CT with 1600 mL thick cream consistency brown colored gastric return. Other details as summarized in the history and physical and dictated consultations. Procedure: With the patient on her left lateral decubitus position and after informed consent and adequate sedation, I removed the NG tube and proceeded to passed the Olympus-GIF 160 video upper endoscope through the cricopharyngeus down the esophagus. There was a sliding hiatal hernia and evidence of NG tube trauma and the esophagus and stomach. The endoscope was advanced into the stomach which was insufflated with air and inspected in detail including the retroflex view in the cardia. No obvious abnormalities were seen in the stomach. The endoscope was then advanced to the pylorus into the duodenum. There were no pyloric channel ulcers. Duodenal bulb, post bulbar area, descending duodenum and transverse duodenum were examined and I was able to pass before length of the endoscope and I did not see any areas of obstruction or any mucosal findings. The endoscope was then withdrawn and I did not obtain any biopsies. The patient tolerated the procedure well. Plan: I discussed the findings with the patient and with her mother. We will not replace the NG tube and allow clear liquids as tolerated. I am suspecting her presentation could be secondary to enteritis and secondary ileus. We will observe her course closely and make further recommendations accordingly.
[2018-01-27] MEDS: ZOLPIDEM 5 MG TAB PO PRN (22:23)
[2018-01-28] MEDS: SODIUM CHLORIDE 0.9% 1,000 ML IV SCH (03:43)
[2018-01-28] MEDS: ONDANSETRON 4 MG/2 ML VIAL IVP PRN ×5 (03:47→22:25)
[2018-01-28] MEDS ORDERED: MORPHINE ORAL SOLN 10 MG/5 ML CUP PO PRN (09:23)
[2018-01-28] MEDS: PANTOPRAZOLE 40 MG/10 ML VIAL IVP SCH (09:26)
[2018-01-28] MEDS ORDERED: SODIUM CHLORIDE 0.9% 1,000 ML IV SCH (10:15)
[2018-01-28 10:38] LABS: Basophils % (A) 0 %; Eosinophils # (A) 0.1 k/uL (0-0.7); Eosinophils % (A) 2 %; HCT 35.3 % (34.0-46.0); HGB 12.1 gm/dL (11.4-16.0); Lymphocytes % (A) 19 %; MCH 29.8 pg (25.0-35.0); MCHC 34.4 g/dL (31.0-37.0); MCV 86.6 fL (80.0-100.0); Mean Platelet Volume 8.1; Monocytes # (A) 0.3 k/uL (0-1.0); Monocytes % (A) 6 %; Neutrophils # (A) 3.6 k/uL (1.3-7.7); Neutrophils % (A) 71 %; Platelet Count 187 k/uL (150-450); RBC 4.07 m/uL (3.80-5.40); RDW 12.9 % (11.5-15.5)
--- NOTE | 2018-01-28 10:41 | P.PN ---
Subjective Progress Note Date: 01/28/18 Principal diagnosis: Abdominal pain ileus Status post EGD no evidence of duodenal stricture or obstruction finding suspected secondary to severe ileus. NG tube removed post EGD. Presently without nausea. Passing frequent loose nonbloody bowel movements. Abdominal pain improved. Tolerating clear liquids. Objective - Vital Signs Vital signs: Vital Signs Temp 98.2 F 01/28/18 08:03 Pulse 59 L 01/28/18 08:03 Resp 16 01/28/18 08:03 BP 94/57 01/28/18 08:03 Pulse Ox 98 01/28/18 08:03 Intake & Output 01/27/18 01/28/18 01/28/18 18:59 06:59 18:59 Intake Total 500 Output Total 1750 Balance -1250 Intake: IV 500 Output: Gastric Drainage 1400 Drainage 150 Face 150 Urine 200 Other: Voiding Method Toilet # Voids 1 1 # Bowel Movements 1 - Exam General appearance: The patient is alert, oriented, in no acute distress. HET: Head is normocephalic and atraumatic. Pupils are equal and reactive. Oropharynx is clear without lesions. Neck: Supple without lymphadenopathy. Trachea midline. Heart: S1 S2. Regular rate and rhythm. Lungs: No crackles or wheezes are heard. Abdomen: Soft, mild midabdominal tenderness, nondistended with bowel sounds. No peritoneal signs. No palpable organomegaly or masses. Extremities: Normal skin color and turgor. No cyanosis, rash, ulceration, clubbing, or edema. Radial and pedal pulses are 2/4 bilaterally. Neurological: No focal deficits. Strength and sensation are grossly intact. - Labs CBC & Chem 7: 01/27/18 06:16 01/27/18 06:16 Assessment and Plan (1) Abdominal pain Narrative/Plan: Severe ileus status post EGD no evidence of gastric outlet obstruction Current Visit: Yes Status: Acute Code(s): R10.9 - UNSPECIFIED ABDOMINAL PAIN SNOMED Code(s): 37523804 Plan: 1. Advance diet as tolerated. Agreeable for discharge if tolerates advanced diet these recommendations were discussed with Dr. Mishra. Patient reiterated her history of hemorrhoidectomy 9 years ago that resulted in post-operative constipation difficulty passing bowel movements. Since her hemorrhoidectomy she has always had trouble evacuating her bowels requiring manual disimpaction and/or daily laxatives. She was told by her surgeon several years ago there could be an anal sphincter issue contributing to these symptoms. An underlying anal stenosis cannot be entirely excluded which could be attributed to her chronic constipated features, intermittent abdominal discomfort and bloatedness. Her presentation of severe ileus at this time could be multifactorial and underlying IBS cannot also be excluded. Recommend daily stool softeners and follow up in GI office in 7-10 days for reevaluation. Assessment and plan a care discussed with Dr. Iglesias
[2018-01-28 10:50] LABS: ALT 40 U/L (9-52); AST 34 U/L (14-36); Albumin 2.9 g/dL (3.5-5.0); Alkaline Phosphatase 39 U/L (38-126); Anion Gap 10 mmol/L; Blood Urea Nitrogen 5 mg/dL (7-17); Calcium 8.6 mg/dL (8.4-10.2); Carbon Dioxide 22 mmol/L (22-30); Chloride 113 mmol/L (98-107); Glucose 85 mg/dL (74-99); Potassium 3.7 mmol/L (3.5-5.1); Sodium 145 mmol/L (137-145); Total Bilirubin 0.5 mg/dL (0.2-1.3); Total Protein 5.2 g/dL (6.3-8.2)
--- NOTE | 2018-01-28 11:49 | P.PN ---
Subjective Progress Note Date: 01/28/18 37-year-old female seen this morning at bedside. Patient is sitting up talkative. Patient presently is reporting not experiencing any nausea. States abdominal discomfort has improved. Patient's followed by GI service. Currently tolerating clear liquids. Nasal gastric tube was removed yesterday after the EGD procedure done by GI service reviewing the report EGD showed no evidence of a duodenal stricture or obstruction finding suspected suspected secondary to severe ileus patient had one bowel movement this morning painless no blood negative for C. diff Objective - Vital Signs Vital signs: Vital Signs Temp 98.2 F 01/28/18 08:03 Pulse 59 L 01/28/18 08:03 Resp 16 01/28/18 08:03 BP 94/57 01/28/18 08:03 Pulse Ox 98 01/28/18 08:03 Intake & Output 01/27/18 01/28/18 01/28/18 18:59 06:59 18:59 Intake Total 500 Output Total 1750 Balance -1250 Intake: IV 500 Output: Gastric Drainage 1400 Drainage 150 Face 150 Urine 200 Other: Voiding Method Toilet # Voids 1 1 # Bowel Movements 1 1 - Exam Physical exam 37-year-old female sitting up in bed talkative appears in no acute distress states has had several loose bowel movements this morning tolerating a liquid diet Lungs adequate air movement bilaterally Heart S1-S2 audible regular denies chest pain Abdomen soft nondistended with active bowel tones tolerating diet states no nausea vomiting Extremities no edema noted - Labs CBC & Chem 7: 01/28/18 10:18 01/28/18 10:18 Labs: Abnormal Lab Results - Last 24 Hours (Table) 01/28/18 Range/Units 10:18 Chloride 113 H (98-107) mmol/L BUN 5 L (7-17) mg/dL Total Protein 5.2 L (6.3-8.2) g/dL Albumin 2.9 L (3.5-5.0) g/dL Assessment and Plan Assessment: Impression Present on admission acute abdominal pain likely due to ileus resolved with underlying IBS not excluded Status post EGD on January 27 showed hiatal hernia equivocal for SMA syndrome Status post EGD no evidence of duodenal stricture or obstruction finding suspect secondary to severe ileus resolving Frequent stooling stool negative for C. diff History of a hemorrhoidectomy 9 years prior resulted in post procedure constipation difficulty passing bowel movements Chronic constipation intermittent abdominal pain with bloating underlying anal stenosis cannot be entirely excluded Plan No surgical intervention at this time Agree with recommendations from GI service Agree if patient tolerates advance diet discharge is appropriate Continue with internal medicine and GIs recommendations We'll follow with you The above impression and plan of care have been discussed and directed by signing physician. Yumi Mancera nurse practitioner acting as scribe for signing physician.
--- NOTE | 2018-01-28 13:26 | P.PN ---
Subjective This is a 37-year-old pleasant lady patient known to my practice, underlying history of GERD, osteoarthritis, heart murmur, chronic Reginald-Leon, admitted to the emergency room secondary to persistent abdominal pain for 4-5 days duration. Patient has symptoms worsened by food, no fever no chills, patient has abdominal cramping thereafter started to have some vomitus, which is brown nonbilious, nonbloody. Patient Had off-and-on gastritis in the past, she tried she tried one hit off marijuana, from her friend, to relieve her symptoms and did not get any better, [id number] medications did not help, patient was subsequently seen emergency room. Previous meal consisted of cookies yogurt ice cream, patient had difficulty with distention, abdominal pain, and nausea and vomiting. 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 NG tube was placed, draining approximately 1.5 L of gastric contents, nonbloody, brown digested material, Patient was was seen by GI services, with plans for EGD today to evaluate for duodenal strictures. 01/28: Patient was seen today she was noted to be sitting up in the bed eating breakfast, she is able to tolerate chicken broth and Jell-O with no, patients. She underwent an EGD yesterday, did not show any evidence of duodenal stricture or obstruction. C. diff was negative. She was consulted by GI, who recommends follow-up and daily stool softeners. Patient will advance diet as tolerated today, if able to tolerate regular diet she'll be discharged early tomorrow. Objective - Vital Signs Vital signs: Vital Signs Temp 98.2 F 01/28/18 08:03 Pulse 52 L 01/28/18 12:52 Resp 16 01/28/18 08:03 BP 94/57 01/28/18 08:03 Pulse Ox 98 01/28/18 08:03 Intake & Output 01/27/18 01/28/18 01/28/18 18:59 06:59 18:59 Intake Total 500 120 Output Total 1750 Balance -1250 120 Intake: IV 500 Oral 120 Output: Gastric Drainage 1400 Drainage 150 Face 150 Urine 200 Other: Voiding Method Toilet # Voids 1 1 1 # Bowel Movements 1 1 - Constitutional General appearance: Present: cooperative - EENT Eyes: Present: normal appearance ENT: Present: normal oropharynx - Respiratory Respiratory: bilateral: CTA, negative: rales, rhonchi, wheezing - Cardiovascular Rhythm: regular Heart sounds: normal: S1, S2 Abnormal Heart Sounds: Absent: systolic murmur, diastolic murmur - Gastrointestinal General gastrointestinal: Present: normal bowel sounds, soft - Neurologic Neurologic: Present: CNII-XII intact. Absent: focal deficits - Musculoskeletal Musculoskeletal: Present: gait normal - Psychiatric Psychiatric: Present: A&O x's 3, appropriate affect, intact judgment & insight - Labs CBC & Chem 7: 01/28/18 10:18 01/28/18 10:18 Labs: Abnormal Lab Results - Last 24 Hours (Table) 01/28/18 Range/Units 10:18 Chloride 113 H (98-107) mmol/L BUN 5 L (7-17) mg/dL Total Protein 5.2 L (6.3-8.2) g/dL Albumin 2.9 L (3.5-5.0) g/dL Assessment and Plan Plan: 1. Duodenal narrowing 2 species for duodenal strictures causing significant gastric outlet obstruction, EGD did not show any significant obstruction or narrowing, NG tube discontinued, nausea and vomiting medication for symptom relief, Dr. Lorenz has been consulted, Dr. Kathie Cook has been consulted. Patient tolerating clear liquid diet. 2. Dysthymia currently on Wellbutrin, no medication changes 3. History of GERD and not requiring any PPIs prior to admission or H2 blockers 4. Electrolyte abnormalities with hyperchloremia, IV fluids for hydration and Tylenol labs BMI 22 DVT prophylaxis low risk early ambulation GI prophylaxis, H2 blockers Nondependent marijuana use The above impression and plan of care have been discussed and directed by signing physician. Lo Morales nurse practitioner acting as scribe for signing physician.
[2018-01-28] MEDS: ALPRAZolam 0.25 MG TAB PO PRN (16:10)
[2018-01-28] MEDS: LACTULOSE 20 GM/30 ML CUP PO SCH ×2 (16:12→21:36)
[2018-01-28] MEDS ORDERED: DOCUSATE 100 MG CAP PO SCH (21:00)
[2018-01-28] MEDS: ZOLPIDEM 5 MG TAB PO PRN (22:26)
[2018-01-28] MEDS ORDERED: hydrOXYzine PAMOATE 25 MG CAP ONE (23:40)
[2018-01-29] MEDS ORDERED: SODIUM CHLORIDE 0.9% 1,000 ML BAG ONE (04:00)
[2018-01-29] MEDS ORDERED: ONDANSETRON 4 MG/2 ML VIAL ONE (04:00)
[2018-01-29 05:39] VITALS: TEMP 97.9
[2018-01-29] MEDS ORDERED: PANTOPRAZOLE 40 MG TABLET PO SCH (07:30)
[2018-01-29 07:51] VITALS: BP 92/59; RESP 16
[2018-01-29 08:26] VITALS: PULSE 56
[2018-01-29] MEDS: ALPRAZolam 0.25 MG TAB PO PRN (08:39)
[2018-01-29] MEDS: ONDANSETRON 4 MG/2 ML VIAL IVP PRN (08:39)
--- NOTE | 2018-01-29 08:44 | XR ---
EXAMINATION TYPE: XR abdomen 1V DATE OF EXAM: 01/29/2018 COMPARISON: NONE INDICATION: Abdominal pain TECHNIQUE: Single view abdomen upright view FINDINGS: Multiple air-fluid levels are within the ascending colon. Air is present within the descending colon. A couple of nonspecific small bowel gas loops of bowel are evident. Psoas margins are normal. No organomegaly is present. Cholecystectomy clips are present. No free air is evident. Suspicious differential air-fluid levels a re present. IMPRESSION: 1. Scattered air-fluid levels within the colon. Correlate for gastroenteritis.
[2018-01-29] MEDS ORDERED: SIMETHICONE 80 MG CHEWABLE PO SCH (09:00)
--- NOTE | 2018-01-29 09:10 | P.DS ---
Providers Date of admission: 01/27/18 09:46 Attending physician: Yennifer Mishra Consults: 01/27/18 09:46 Consult Physician Stat Consulting Provider: Aria Smith Consult Reason/Comments: Proximal small bowel obstruction, concern for SMA syndrome Do you want consulting provider notified?: Already Contacted Primary care physician: Yennifer Mishra [facility] Course: This is a 37-year-old pleasant lady patient known to my practice, underlying history of GERD, osteoarthritis, heart murmur, chronic Reginald-Leon, admitted to the emergency room secondary to persistent abdominal pain for 4-5 days duration. Patient has symptoms worsened by food, no fever no chills, patient has abdominal cramping thereafter started to have some vomitus, which is brown nonbilious, nonbloody. Patient Had off-and-on gastritis in the past, she tried she tried one hit off marijuana, from her friend, to relieve her symptoms and did not get any better, [id number] medications did not help, patient was subsequently seen emergency room. Previous meal consisted of cookies yogurt ice cream, patient had difficulty with distention, abdominal pain, and nausea and vomiting. 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 NG tube was placed, draining approximately 1.5 L of gastric contents, nonbloody, brown digested material, Patient was was seen by GI services, with plans for EGD today to evaluate for duodenal strictures. 01/28: Patient was seen today she was noted to be sitting up in the bed eating breakfast, she is able to tolerate chicken broth and Jell-O with no, patients. She underwent an EGD yesterday, did not show any evidence of duodenal stricture or obstruction. C. diff was negative. She was consulted by GI, who recommends follow-up and daily stool softeners. Patient will advance diet as tolerated today, if able to tolerate regular diet she'll be discharged early tomorrow. 01/29: Patient still has some liquid stools, is tolerating oral food and fluids. She will be discharged home with stool softener and lactulose to prevent constipation. She will hold Lactulose for a few days until diarrhea has subsided. Will follow up in the office and GI within the next week. 1. Duodenal narrowing 2 species for duodenal strictures causing significant gastric outlet obstruction 2. Dysthymia currently on Wellbutrin 3. History of GERD 4. Electrolyte abnormalities with hyperchloremia Patient Condition at Discharge: Good Plan - Discharge Summary Discharge Rx Participant: No New Discharge Prescriptions: New RX: Docusate [Colace] 100 mg PO BID #60 cap RX: Lactulose [Cephulac] 20 gm PO TID #250 ml RX: Pantoprazole [Protonix] 40 mg PO AC-BRKFST #30 tablet. RX: Simethicone Chew [Mylicon Chew] 40 mg PO QID #60 / Continue RX: buPROPion SR [Wellbutrin SR] 100 mg PO DAILY RX: Multivitamins, Thera [Multivitamin (formulary)] 1 tab PO DAILY Discharge Medication List RX: Multivitamins, Thera [Multivitamin (formulary)] 1 tab PO DAILY 01/27/18 [ History] RX: buPROPion SR [Wellbutrin SR] 100 mg PO DAILY 01/27/18 [History] RX: Docusate [Colace] 100 mg PO BID #60 cap 01/29/18 [Rx] RX: Lactulose [Cephulac] 20 gm PO TID #250 ml 01/29/18 [Rx] RX: Pantoprazole [Protonix] 40 mg PO AC-BRKFST #30 tablet. 01/29/18 [Rx] RX: Simethicone Chew [Mylicon Chew] 40 mg PO QID #60 / 01/29/18 [Rx] Follow up Appointment(s)/Referral(s): Keshav Iglesias MD [STAFF PHYSICIAN] - 02/13/18 1:30 pm Yennifer Mishra MD [Primary Care Provider] - 1-2 days Discharge Disposition: HOME SELF-CARE
== END 2018-01-29 10:55 | disposition home or self-care (01) | DRG 381 ==
LOC: EC 05:58 → 6PED 09:46
PROVIDERS: ADMIT Family Medicine; ATTEND Family Medicine
PROC: 0DJ08ZZ Inspection of Upper Intestinal Tract, Via Natural or Artificial Opening Endoscopic (ICD-10-PCS; principal; 2018-01-27 09:40)
DX: K31.5 Obstruction of duodenum (principal); K55.1 Chronic vascular disorders of intestine; E87.8 Other disorders of electrolyte and fluid balance, not elsewhere classified; K31.1 Adult hypertrophic pyloric stenosis; B27.00 Gammaherpesviral mononucleosis without complication; K21.9 Gastro-esophageal reflux disease without esophagitis; F12.90 Cannabis use, unspecified, uncomplicated; M19.90 Unspecified osteoarthritis, unspecified site; R01.1 Cardiac murmur, unspecified; F34.1 Dysthymic disorder; F32.9 Major depressive disorder, single episode, unspecified; R00.1 Bradycardia, unspecified; F41.9 Anxiety disorder, unspecified; K44.9 Diaphragmatic hernia without obstruction or gangrene; K58.1 Irritable bowel syndrome with constipation; Z90.49 Acquired absence of other specified parts of digestive tract; Z87.19 Personal history of other diseases of the digestive system; Z87.440 Personal history of urinary (tract) infections; Z87.891 Personal history of nicotine dependence; Z79.899 Other long term (current) drug therapy; Z82.49 Family history of ischemic heart disease and other diseases of the circulatory system
CPT/HCPCS: 36415; 43235; 74018; 74177; 80053; 80306; 81003; 81025; 82150; 83605; 83690; 85025; 87324; 93005; 96361; 96374; 96375; 96376; 99285

== ENCOUNTER → 2018-02-22 | Outpatient (CLI) | payer OTHER ==
--- NOTE | 2018-02-22 11:44 | MR ---
EXAMINATION TYPE: MR abdomen wo/w con DATE OF EXAM: 02/22/2018 COMPARISON: CT scan 01/27/2018 HISTORY: Abdominal pain / Compression of vein CONTRAST: Standard multiplanar, multisequence MRI departmental protocol utilizing 6.5 mL intravenous Gadavist g adolinium contrast. FINDINGS: Postcholecystectomy changes are noted with findings compatible with mild intrahepatic biliary ductal dilation secondary to postcholecystectomy changes. Small focal area of signal along the falciform lig ament compatible with the CT finding of probable focal fatty infiltration. Portal vein is patent. Hepatic veins and the visualized portion of the IVC are widely patent. Aorta o f normal caliber. Kidneys, pancreas, adrenal glands and clean have a normal appearance. Bowel gas pattern nonspecific. Shotty adenopathy in the mesentery noted. Osseous structures intact. IMPRESSION: Postcholecystectomy changes mild intrahepatic delayed dilation consistent with the patient's postsurg ical status.
== END | disposition home or self-care (01) ==
LOC: RADMRIMAIN 10:14
PROVIDERS: ATTEND Internal Medicine Geriatric Medicine
DX: R93.2 Abnormal findings on diagnostic imaging of liver and biliary tract (principal); I87.1 Compression of vein; R10.9 Unspecified abdominal pain; Z90.49 Acquired absence of other specified parts of digestive tract; Z98.890 Other specified postprocedural states
CPT/HCPCS: 74183; A9581

== ENCOUNTER → 2018-02-24 | Outpatient (CLI) | payer OTHER ==
--- NOTE | 2018-02-24 12:08 | MR ---
EXAMINATION TYPE: MR pelvis wo/w con DATE OF EXAM: 02/24/2018 COMPARISON: MRI abdomen 02/22/[address] 01/27/2018 HISTORY: 37-year-old female Lower abdominal pain, unspecified Technique: Multiplanar, multisequence images of the pelvis were obtained before and after administrat ion of 6.5 mL intravenous Gadavist gadolinium contrast. FINDINGS: The uterus is retroverted measuring 8.0 x 4.2 x 5.2 cm. The endometrial stripe measures 5.6 cm. The j unctional zone appears normal. No dominant focal fibroids are seen. Left ovary is visualized and appears normal size. Right ovary contains a nonenhancing T2 hyperintense and T1 low signal intensity cyst measuring 4.0 cm. There is small amount of cul-de-sac free fluid noted. No pelvic lymphadenopathy seen. IMPRESSION: 1. Retroverted uterus with normal endometrial stripe and junctional zone. 2. A 4.0 cm dominant follicle/functional cyst in the right ovary. Consideration can be given to a 6-8 week follow-up ultrasound to assess for resolution. 3. Small amount of cul-de-sac free fluid likely physiologic. 4. Otherwise, no specific abnormality seen.
== END | disposition home or self-care (01) ==
LOC: RADMRIMAIN 10:13
PROVIDERS: ATTEND Internal Medicine Geriatric Medicine
DX: N85.4 Malposition of uterus (principal); N83.201 Unspecified ovarian cyst, right side
CPT/HCPCS: 72197; A9581

== ENCOUNTER 2018-03-01 19:05 | Emergency (ER) | payer OTHER ==
[2018-03-01 19:09] VITALS: RESP 20
[2018-03-01] MEDS ORDERED: SODIUM CHLORIDE 0.9% 1,000 ML IV STA ×2 (20:53)
[2018-03-01] MEDS ORDERED: ONDANSETRON 4 MG/2 ML VIAL IVP STA (20:53)
[2018-03-01] MEDS ORDERED: RX INFO: IV CONTRAST WAS GIVEN 1 EACH MISC MISCELLANE PRN (20:53)
[2018-03-01] MEDS ORDERED: fentaNYL (PF) 50 MCG/ML 2 ML AMP IV STA (20:54)
--- NOTE | 2018-03-01 20:57 | ED ---
Abdominal Pain HPI - General Chief Complaint: Abdominal Pain Stated Complaint: abdominal pain Time Seen by Provider: 03/01/18 20:36 Source: patient Mode of arrival: ambulatory Limitations: no limitations - Related Data Home Medications Medication Instructions Recorded Confirmed Multivitamins, Thera [Multivitamin 1 tab PO DAILY 01/27/18 01/27/18 (formulary)] buPROPion SR [Wellbutrin SR] 100 mg PO DAILY 01/27/18 01/27/18 Previous Rx's Medication Instructions Recorded Docusate [Colace] 100 mg PO BID #60 cap 01/29/18 Lactulose [Cephulac] 20 gm PO TID #250 ml 01/29/18 Pantoprazole [Protonix] 40 mg PO AC-BRKFST #30 tablet. 01/29/18 Simethicone Chew [Mylicon Chew] 40 mg PO QID #60 / 01/29/18 Allergies Allergy/AdvReac Type Severity Reaction Status Date / Time No Known Allergies Allergy Verified 03/01/18 19:09 Review of Systems ROS Statement: Those systems with pertinent positive or pertinent negative responses have been documented in the HPI. Constitutional: Negative for chills, fatigue and fever. HENT: Negative for congestion. Respiratory: Negative for chest tightness, shortness of breath and wheezing. Negative for cough Cardiovascular: Negative for chest pain and palpitations. Gastrointestinal: Positive for abdominal pain and nausea. Negative for abdominal distention, diarrhea, and vomiting. Genitourinary: Negative for dysuria. Musculoskeletal: Negative for back pain, neck pain and neck stiffness. Skin: Negative for color change. Neurological: Negative for dizziness, speech difficulty, weakness and light- headedness. Psychiatric/Behavioral: Negative for agitation and confusion. The patient is not nervous/anxious. ROS Other: All systems not noted in ROS Statement are negative. 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 Past Anesthesia/Blood Transfusion Reactions: Postoperative Nausea & Vomiting ( PONV) Past Psychological History: Anxiety, Depression Smoking Status: Former smoker Past Alcohol Use History: None Reported Past Drug Use History: None Reported - Past Family History Mother History Unknown: Yes (Lyme disease, CAD, pericardial effusion) Additional Family Medical History / Comment(s): Mother has Lyme's dx. Father History Unknown: Yes Additional Family Medical History / Comment(s): Biological father left when pt was a little girl. Brother(s) History Unknown: Yes (Healthy no problems) Sister(s) History Unknown: Yes (No sisters no daughters no sons) General Exam - General Exam Comments Initial Comments: Constitutional: Pt is oriented to person, place, and time. Pt appears well- developed and well-nourished. No distress. HENT: Head: Normocephalic and atraumatic. Eyes: EOM are normal. Neck: Normal range of motion. Neck supple. Cardiovascular: Normal rate, regular rhythm, S1 normal, S2 normal and normal heart sounds. Exam reveals no gallop and no friction rub. No murmur heard. Pulmonary/Chest: Effort normal and breath sounds normal. No tachypnea and no bradypnea. No respiratory distress. No wheezes or rales noted. Abdominal: Soft. Bowel sounds are normal. Pt exhibits no shifting dullness, no distension, no pulsatile liver, no fluid wave, no abdominal bruit and no ascites. There is no rigidity, no rebound, no guarding, no tenderness at McBurney's point and negative Valadez's sign. There is mild tenderness in the epigastric region Musculoskeletal: Normal range of motion. Neurological: Pt is alert and oriented to person, place, and time. No cranial nerve deficit. Skin: Skin is warm and dry. No rash noted. Pt is not diaphoretic. No erythema. No pallor. Psychiatric: Pt has a normal mood and affect. Pt behavior is normal. Thought content normal. Limitations: no limitations Course Vital Signs 03/01/18 03/01/18 03/01/18 19:07 21:09 22:30 Temperature 98.8 F Pulse Rate 79 55 L 54 L Respiratory 20 20 20 Rate Blood Pressure 120/74 106/65 111/67 O2 Sat by Pulse 99 100 100 Oximetry Medical Decision Making - Medical Decision Making Laboratory studies showed no evidence of leukocytosis and lactic acid was not elevated. There is also no evidence of transaminitis. Urinalysis is negative for infection and urine test was negative. Patient was given fentanyl and CT abdomen was performed and showed no evidence of acute pathology. After reevaluation, the patient stated that she felt as if her bowels are moving after the fentanyl was given an approximately 3 hours after arrival, she continues to remain pain-free. Extensive discussion was had with both her mother and her and it was advised that all emergent pathology cannot be completely excluded and observation placement was offered to the patient for further evaluation and potentially a CTA of her abdomen. However, the patient, he declined and stated that she felt well enough and wanted to go home and follow-up on Saturday.Explained all labs and diagnostic test results and that we will discharge the patient home and patient is to follow up with PCP in 1-2 days and return to the ED if symptoms worsen. Pt is agreeable to plan. - Lab Data Result diagrams: 03/01/18 21:00 03/01/18 21:00 Lab Results 03/01/18 03/01/18 03/01/18 Range/Units 20:52 20:52 21:00 WBC 5.2 (3.8-10.6) k/uL RBC 4.73 (3.80-5.40) m/uL Hgb 13.9 (11.4-16.0) gm/dL Hct 40.7 (34.0-46.0) % MCV 86.0 (80.0-100.0) fL MCH 29.3 (25.0-35.0) pg MCHC 34.1 (31.0-37.0) g/dL RDW 12.6 (11.5-15.5) % Plt Count 239 (150-450) k/uL Neutrophils % 53 % Lymphocytes % 32 % Monocytes % 5 % Eosinophils % 6 % Basophils % 1 % Neutrophils # 2.8 (1.3-7.7) k/uL Lymphocytes # 1.7 (1.0-4.8) k/uL Monocytes # 0.3 (0-1.0) k/uL Eosinophils # 0.3 (0-0.7) k/uL Basophils # 0.0 (0-0.2) k/uL Sodium (137-145) mmol/L Potassium (3.5-5.1) mmol/L Chloride (98-107) mmol/L Carbon Dioxide (22-30) mmol/L Anion Gap mmol/L BUN (7-17) mg/dL Creatinine (0.52-1.04) mg/dL Est GFR (CKD-EPI)AfAm (>60 ml/min/1.73 sqM) Est GFR (CKD-EPI)NonAf (>60 ml/min/1.73 sqM) Glucose (74-99) mg/dL Plasma Lactic Acid Tee (0.7-2.0) mmol/L Calcium (8.4-10.2) mg/dL Total Bilirubin (0.2-1.3) mg/dL AST (14-36) U/L ALT (9-52) U/L Alkaline Phosphatase (38-126) U/L Total Protein (6.3-8.2) g/dL Albumin (3.5-5.0) g/dL Lipase (23-300) U/L Urine Color Light Yellow Urine Appearance Cloudy H (Clear) Urine pH 6.0 (5.0-8.0) Ur Specific [place] 1.005 (1.001-1.035) Urine Protein Negative (Negative) Urine Glucose (UA) Negative (Negative) Urine Ketones Negative (Negative) Urine Blood Negative (Negative) Urine Nitrite Negative (Negative) Urine Bilirubin Negative (Negative) Urine Urobilinogen <2.0 (<2.0) mg/dL Ur Leukocyte Esterase Negative (Negative) Urine RBC 1 (0-5) /hpf Urine WBC <1 (0-5) /hpf Ur Squamous Epith Cells 3 (0-4) /hpf Urine Bacteria Rare H (None) /hpf Urine Mucus Rare H (None) /hpf Urine HCG, Qual Not Detected (Not Detectd) 03/01/18 03/01/18 Range/Units 21:00 21:00 WBC (3.8-10.6) k/uL RBC (3.80-5.40) m/uL Hgb (11.4-16.0) gm/dL Hct (34.0-46.0) % MCV (80.0-100.0) fL MCH (25.0-35.0) pg MCHC (31.0-37.0) g/dL RDW (11.5-15.5) % Plt Count (150-450) k/uL Neutrophils % % Lymphocytes % % Monocytes % % Eosinophils % % Basophils % % Neutrophils # (1.3-7.7) k/uL Lymphocytes # (1.0-4.8) k/uL Monocytes # (0-1.0) k/uL Eosinophils # (0-0.7) k/uL Basophils # (0-0.2) k/uL Sodium 143 (137-145) mmol/L Potassium 3.5 (3.5-5.1) mmol/L Chloride 103 (98-107) mmol/L Carbon Dioxide 26 (22-30) mmol/L Anion Gap 14 mmol/L BUN 16 (7-17) mg/dL Creatinine 0.70 (0.52-1.04) mg/dL Est GFR (CKD-EPI)AfAm >90 (>60 ml/min/1.73 sqM) Est GFR (CKD-EPI)NonAf >90 (>60 ml/min/1.73 sqM) Glucose 77 (74-99) mg/dL Plasma Lactic Acid Tee 0.7 (0.7-2.0) mmol/L Calcium 9.7 (8.4-10.2) mg/dL Total Bilirubin 0.6 (0.2-1.3) mg/dL AST 35 (14-36) U/L ALT 40 (9-52) U/L Alkaline Phosphatase 48 (38-126) U/L Total Protein 7.1 (6.3-8.2) g/dL Albumin 4.4 (3.5-5.0) g/dL Lipase 90 (23-300) U/L Urine Color Urine Appearance (Clear) Urine pH (5.0-8.0) Ur Specific [place] (1.001-1.035) Urine Protein (Negative) Urine Glucose (UA) (Negative) Urine Ketones (Negative) Urine Blood (Negative) Urine Nitrite (Negative) Urine Bilirubin (Negative) Urine Urobilinogen (<2.0) mg/dL Ur Leukocyte Esterase (Negative) Urine RBC (0-5) /hpf Urine WBC (0-5) /hpf Ur Squamous Epith Cells (0-4) /hpf Urine Bacteria (None) /hpf Urine Mucus (None) /hpf Urine HCG, Qual (Not Detectd) Disposition Clinical Impression: Abdominal pain Disposition: HOME SELF-CARE Condition: Good Instructions: Abdominal Pain (ED) Is patient prescribed a controlled substance at d/c from ED?: No Referrals: Yennifer Mishra MD [Primary Care Provider] - 1-2 days Keshav Iglesias MD [STAFF PHYSICIAN] - 1-2 days Time of Disposition: 00:07
[2018-03-01 21:09] LABS: Appearance,Urine Cloudy (Clear); Bacteria,Urine Rare /hpf; Bilirubin,Urine Negative (Negative); Blood,Urine Negative (Negative); Color,Urine Light Yellow; Glucose,Urine (UA) Negative (Negative); Ketones,Urine Negative (Negative); Leukocyte Esterase,Urine Negative (Negative); Mucus,Urine Rare /hpf; Nitrite,Urine Negative (Negative); Protein,Urine Negative (Negative); RBC,Urine 1 /hpf (0-5); Specific Gravity,Urine 1.005 (1.001-1.035); Squamous Epithelial Cell,Urine 3 /hpf (0-4); Urobilinogen,Urine <2.0 mg/dL (<2.0); WBC,Urine <1 /hpf (0-5)
[2018-03-01 21:45] LABS: ALT 40 U/L (9-52); AST 35 U/L (14-36); Albumin 4.4 g/dL (3.5-5.0); Alkaline Phosphatase 48 U/L (38-126); Anion Gap 14 mmol/L; Blood Urea Nitrogen 16 mg/dL (7-17); Calcium 9.7 mg/dL (8.4-10.2); Carbon Dioxide 26 mmol/L (22-30); Chloride 103 mmol/L (98-107); Glucose 77 mg/dL (74-99); Lipase 90 U/L (23-300); Potassium 3.5 mmol/L (3.5-5.1); Sodium 143 mmol/L (137-145); Total Bilirubin 0.6 mg/dL (0.2-1.3); Total Protein 7.1 g/dL (6.3-8.2)
[2018-03-01 21:46] LABS: Basophils % (A) 1 %; Eosinophils # (A) 0.3 k/uL (0-0.7); Eosinophils % (A) 6 %; HCT 40.7 % (34.0-46.0); HGB 13.9 gm/dL (11.4-16.0); Lymphocytes # (A) 1.7 k/uL (1.0-4.8); Lymphocytes % (A) 32 %; MCH 29.3 pg (25.0-35.0); MCHC 34.1 g/dL (31.0-37.0); Mean Platelet Volume 7.3; Monocytes # (A) 0.3 k/uL (0-1.0); Monocytes % (A) 5 %; Neutrophils # (A) 2.8 k/uL (1.3-7.7); Neutrophils % (A) 53 %; Platelet Count 239 k/uL (150-450); RBC 4.73 m/uL (3.80-5.40); RDW 12.6 % (11.5-15.5); WBC 5.2 k/uL (3.8-10.6)
--- NOTE | 2018-03-01 22:34 | XR ---
EXAMINATION TYPE: XR KUB DATE OF EXAM: 03/01/2018 COMPARISON: 01/29/2018 HISTORY: Abdominal pain TECHNIQUE: 2 views FINDINGS: Bowel gas pattern is normal. There is no sign of intestinal obstruction or pneumoperitoneum . Fecal pattern is normal. There are clips from cholecystectomy. Lung bases are clear. There are no p athologic calcifications over the kidneys. IMPRESSION: Nonacute abdomen. No adverse change compared to old exam.
--- NOTE | 2018-03-01 22:56 | CT ---
EXAMINATION TYPE: CT abdomen pelvis w con DATE OF EXAM: 03/01/2018 COMPARISON: 01/27/2018 HISTORY: Abdominal pain. CT DLP: 434.20 mGycm Automated exposure control for dose reduction was used. TECHNIQUE: Helical acquisition of images was performed from the lung bases through the pelvis. CONTRAST: Performed without Oral Contrast and with IV Contrast, patient injected with 100 mL of Isovue 300. FINDINGS: Lung bases are clear. There is no pleural effusion. Heart size is normal. Liver spleen pancreas appear normal. Bile ducts are not dilated. There are clips from cholecystectomy . There is no adrenal mass. Kidneys show satisfactory contrast opacification. There is no hydronephrosi s. There is no retroperitoneal adenopathy. There is no ascites. Bladder distends smoothly. I see no i ntestinal wall thickening. There are no dilated loops. Terminal ileum appears normal. Appendix is not seen. There is no sign of appendicitis. Uterus is retroverted. There is no evidence of a pelvic mass . I see no bony destructive process. IMPRESSION: NEGATIVE CT SCAN OF THE ABDOMEN AND PELVIS. THERE IS CLEARING OF THE DILATED STOMACH AND DUODENUM COM PARED TO OLD EXAM.
[2018-03-02 00:26] VITALS: BP 118/66; PULSE 51; TEMP 97.3
== END 2018-03-02 00:15 | disposition home or self-care (01) ==
LOC: EC 19:05
DX: R10.9 Unspecified abdominal pain (principal); F41.9 Anxiety disorder, unspecified; F32.9 Major depressive disorder, single episode, unspecified; Z90.49 Acquired absence of other specified parts of digestive tract; Z53.29 Procedure and treatment not carried out because of patient's decision for other reasons; Z87.891 Personal history of nicotine dependence; Z79.899 Other long term (current) drug therapy
CPT/HCPCS: 36415; 80053; 83605; 83690; 85025; 81001; 81025; 74018; 74177; 99284; 96374; 96375; 96361 ×3; J2405; J3010; Q9967

== ENCOUNTER → 2018-05-27 | Outpatient (CLI) | payer OTHER ==
--- NOTE | 2018-05-27 16:32 | XR ---
EXAMINATION TYPE: XR knee complete LT DATE OF EXAM: 05/27/2018 CLINICAL HISTORY: Left knee pain for 2 months. TECHNIQUE: Three views of the left knee are obtained. COMPARISON: None. FINDINGS: There is no acute fracture/dislocation evident in left knee. The tri-compartment joint sp aces appear within normal limits. The overlying soft tissue appears unremarkable. IMPRESSION: Unremarkable study.
== END | disposition home or self-care (01) ==
LOC: RADXRMAIN 16:16
PROVIDERS: ATTEND Family Medicine
DX: M25.562 Pain in left knee (principal)

== ENCOUNTER 2018-06-02 17:56 | Emergency (ER) | payer OTHER ==
[2018-06-02 18:54] VITALS: TEMP 98.5
[2018-06-02 19:42] LABS: Appearance,Urine Clear (Clear); Basophils # (A) 0.1 k/uL (0-0.2); Basophils % (A) 1 %; Bilirubin,Urine Negative (Negative); Blood,Urine Negative (Negative); Color,Urine Light Yellow; Eosinophils # (A) 0.2 k/uL (0-0.7); Eosinophils % (A) 4 %; Glucose,Urine (UA) Negative (Negative); HGB 14.6 gm/dL (11.4-16.0); Ketones,Urine Negative (Negative); Leukocyte Esterase,Urine Negative (Negative); Lymphocytes # (A) 1.3 k/uL (1.0-4.8); Lymphocytes % (A) 21 %; MCH 29.4 pg (25.0-35.0); MCHC 32.5 g/dL (31.0-37.0); MCV 90.6 fL (80.0-100.0); Mean Platelet Volume 7.5; Monocytes # (A) 0.3 k/uL (0-1.0); Monocytes % (A) 5 %; Neutrophils # (A) 4.1 k/uL (1.3-7.7); Neutrophils % (A) 67 %; Nitrite,Urine Negative (Negative); PH, Urine 7.5 (5.0-8.0); Platelet Count 251 k/uL (150-450); Protein,Urine Negative (Negative); RBC 4.97 m/uL (3.80-5.40); RDW 12.9 % (11.5-15.5); Specific Gravity,Urine 1.005 (1.001-1.035); Urobilinogen,Urine <2.0 mg/dL (<2.0); WBC 6.1 k/uL (3.8-10.6)
[2018-06-02] MEDS ORDERED: ONDANSETRON 4 MG/2 ML VIAL IVP STA (19:49)
[2018-06-02] MEDS ORDERED: SODIUM CHLORIDE 0.9% 1,000 ML IV ONE (19:50)
[2018-06-02] MEDS ORDERED: fentaNYL (PF) 50 MCG/ML 2 ML AMP IV STA (19:51)
[2018-06-02 19:52] LABS: ALT 47 U/L (9-52); AST 47 U/L (14-36); Albumin 4.6 g/dL (3.5-5.0); Alkaline Phosphatase 49 U/L (38-126); Amylase 72 U/L (30-110); Anion Gap 7 mmol/L; Blood Urea Nitrogen 11 mg/dL (7-17); Carbon Dioxide 28 mmol/L (22-30); Chloride 107 mmol/L (98-107); Glucose 82 mg/dL (74-99); Lipase 60 U/L (23-300); Potassium 3.8 mmol/L (3.5-5.1); Sodium 142 mmol/L (137-145); Total Bilirubin 0.6 mg/dL (0.2-1.3); Total Protein 7.7 g/dL (6.3-8.2)
--- NOTE | 2018-06-02 20:10 | ED ---
Abdominal Pain HPI - General Chief Complaint: Abdominal Pain Stated Complaint: abd pain Time Seen by Provider: 06/02/18 19:24 Source: patient Mode of arrival: ambulatory Limitations: no limitations - History of Present Illness Initial Comments: 38-year-old female patient with past medical history significant for superior mesenteric artery syndrome presents to the emergency department today for evaluation of upper abdominal pain and nausea. Patient states that pain started earlier today. Patient states that pain is similar to when she's had obstruction in the past related to her SMA. Patient states she is planning surgery for her condition however her surgeon at [facility] wanted her to have an additional motility test prior to scheduling the date. Patient states her bowel movements have been normal. States she has not passed gas in hours. Patient states she did take her Bentyl, lactulose, and stool softener today without relief of symptoms. She denies any fevers or chills. Denies any hematuria, dysuria, urinary frequency, urinary urgency. Patient denies any recent rash, shortness breath, chest pain, numbness, tingling, dizziness, weakness, hematuria, dysuria, urinary urgency, urinary frequency, headache, visual changes, or any other complaints. - Related Data Home Medications Medication Instructions Recorded Confirmed Multivitamins, Thera [Multivitamin 1 tab PO DAILY 01/27/18 06/02/18 (formulary)] Dicyclomine [Bentyl] 10 mg PO BID PRN 06/02/18 06/02/18 L.acidoph,Paracasei, B.lactis 1 cap PO DAILY 06/02/18 06/02/18 [Probiotic] Lactulose [Cephulac] 20 gm PO TID PRN 06/02/18 06/02/18 Otc 1 tab PO DAILY 06/02/18 06/02/18 Pantoprazole [Protonix] 40 mg PO HS 06/02/18 06/02/18 Vitamin B-12 Liquid 2 dropper MUCOUS MEM DAILY 06/02/18 06/02/18 Vitamin C/Biotin [Hair, Skin and 1 tab PO DAILY 06/02/18 06/02/18 Nails] busPIRone HCl [Buspar] 20 mg PO HS 06/02/18 06/02/18 Previous Rx's Medication Instructions Recorded Docusate [Colace] 100 mg PO BID #60 cap 01/29/18 Allergies Allergy/AdvReac Type Severity Reaction Status Date / Time No Known Allergies Allergy Verified 06/02/18 20:06 Review of Systems ROS Statement: Those systems with pertinent positive or pertinent negative responses have been documented in the HPI. ROS Other: All systems not noted in ROS Statement are negative. 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 Past Anesthesia/Blood Transfusion Reactions: Postoperative Nausea & Vomiting ( PONV) Past Psychological History: Anxiety, Depression Smoking Status: Former smoker Past Alcohol Use History: Occasional Past Drug Use History: Marijuana - Past Family History Mother History Unknown: Yes (Lyme disease, CAD, pericardial effusion) Additional Family Medical History / Comment(s): Mother has Lyme's dx. Father History Unknown: Yes Additional Family Medical History / Comment(s): Biological father left when pt was a little girl. Brother(s) History Unknown: Yes (Healthy no problems) Sister(s) History Unknown: Yes (No sisters no daughters no sons) General Exam Limitations: no limitations General appearance: alert, in no apparent distress, other (This is a well- developed, well-nourished adult female patient in no acute distress. Vital signs upon presentation are temperature 98.5F, pulse 61, respirations 20, blood pressure 122/92, pulse ox 100% on room air.) Eye exam: Present: normal appearance, PERRL, EOMI. Absent: scleral icterus, conjunctival injection, periorbital swelling ENT exam: Present: normal exam, normal oropharynx, mucous membranes moist Respiratory exam: Present: normal lung sounds bilaterally. Absent: respiratory distress, wheezes, rales, rhonchi, stridor Cardiovascular Exam: Present: regular rate, normal rhythm, normal heart sounds. Absent: systolic murmur, diastolic murmur, rubs, gallop, clicks GI/Abdominal exam: Present: soft, tenderness (Midepigastric tenderness), normal bowel sounds. Absent: distended, guarding, rebound, rigid Neurological exam: Present: alert, oriented X3, CN II-XII intact Psychiatric exam: Present: normal affect, normal mood Skin exam: Present: warm, dry, intact, normal color. Absent: rash Course Vital Signs 06/02/18 06/02/18 18:52 20:29 Temperature 98.5 F Pulse Rate 61 51 L Respiratory 20 16 Rate Blood Pressure 122/92 113/73 O2 Sat by Pulse 100 100 Oximetry Medical Decision Making - Medical Decision Making 38 year-old female patient with past medical history significant for SMA presented to the emergency department today for evaluation of upper abdominal pain and nausea. Physical examination did reveal some midepigastric tenderness. Vital signs are stable, patient is afebrile. Labs reviewed and were unremarkable. X-ray was obtained and showed overall nonobstructive bowel gas pattern. Patient was given fentanyl and Zofran here in the emergency department. Upon reevaluation patient states she is feeling much better, states that she is now passing gas. Denies any current pain. Patient will be discharged home and instructed to follow-up with her surgeon at [facility] for recheck in 1-2 days. Return parameters were discussed in detail. She verbalizes understanding and agrees with this plan. - Lab Data Result diagrams: 06/02/18 19:32 06/02/18 19:32 Lab Results 06/02/18 06/02/18 06/02/18 Range/Units 19:32 19:32 19:32 WBC 6.1 (3.8-10.6) k/uL RBC 4.97 (3.80-5.40) m/uL Hgb 14.6 (11.4-16.0) gm/dL Hct 45.0 (34.0-46.0) % MCV 90.6 (80.0-100.0) fL MCH 29.4 (25.0-35.0) pg MCHC 32.5 (31.0-37.0) g/dL RDW 12.9 (11.5-15.5) % Plt Count 251 (150-450) k/uL Neutrophils % 67 % Lymphocytes % 21 % Monocytes % 5 % Eosinophils % 4 % Basophils % 1 % Neutrophils # 4.1 (1.3-7.7) k/uL Lymphocytes # 1.3 (1.0-4.8) k/uL Monocytes # 0.3 (0-1.0) k/uL Eosinophils # 0.2 (0-0.7) k/uL Basophils # 0.1 (0-0.2) k/uL Sodium 142 (137-145) mmol/L Potassium 3.8 (3.5-5.1) mmol/L Chloride 107 (98-107) mmol/L Carbon Dioxide 28 (22-30) mmol/L Anion Gap 7 mmol/L BUN 11 (7-17) mg/dL Creatinine 0.70 (0.52-1.04) mg/dL Est GFR (CKD-EPI)AfAm >90 (>60 ml/min/1.73 sqM) Est GFR (CKD-EPI)NonAf >90 (>60 ml/min/1.73 sqM) Glucose 82 (74-99) mg/dL Calcium 10.0 (8.4-10.2) mg/dL Total Bilirubin 0.6 (0.2-1.3) mg/dL AST 47 H (14-36) U/L ALT 47 (9-52) U/L Alkaline Phosphatase 49 (38-126) U/L Total Protein 7.7 (6.3-8.2) g/dL Albumin 4.6 (3.5-5.0) g/dL Amylase 72 (30-110) U/L Lipase 60 (23-300) U/L Urine Color Light Yellow Urine Appearance Clear (Clear) Urine pH 7.5 (5.0-8.0) Ur Specific [place] 1.005 (1.001-1.035) Urine Protein Negative (Negative) Urine Glucose (UA) Negative (Negative) Urine Ketones Negative (Negative) Urine Blood Negative (Negative) Urine Nitrite Negative (Negative) Urine Bilirubin Negative (Negative) Urine Urobilinogen <2.0 (<2.0) mg/dL Ur Leukocyte Esterase Negative (Negative) Urine HCG, Qual (Not Detectd) 06/02/18 Range/Units 19:32 WBC (3.8-10.6) k/uL RBC (3.80-5.40) m/uL Hgb (11.4-16.0) gm/dL Hct (34.0-46.0) % MCV (80.0-100.0) fL MCH (25.0-35.0) pg MCHC (31.0-37.0) g/dL RDW (11.5-15.5) % Plt Count (150-450) k/uL Neutrophils % % Lymphocytes % % Monocytes % % Eosinophils % % Basophils % % Neutrophils # (1.3-7.7) k/uL Lymphocytes # (1.0-4.8) k/uL Monocytes # (0-1.0) k/uL Eosinophils # (0-0.7) k/uL Basophils # (0-0.2) k/uL Sodium (137-145) mmol/L Potassium (3.5-5.1) mmol/L Chloride (98-107) mmol/L Carbon Dioxide (22-30) mmol/L Anion Gap mmol/L BUN (7-17) mg/dL Creatinine (0.52-1.04) mg/dL Est GFR (CKD-EPI)AfAm (>60 ml/min/1.73 sqM) Est GFR (CKD-EPI)NonAf (>60 ml/min/1.73 sqM) Glucose (74-99) mg/dL Calcium (8.4-10.2) mg/dL Total Bilirubin (0.2-1.3) mg/dL AST (14-36) U/L ALT (9-52) U/L Alkaline Phosphatase (38-126) U/L Total Protein (6.3-8.2) g/dL Albumin (3.5-5.0) g/dL Amylase (30-110) U/L Lipase (23-300) U/L Urine Color Urine Appearance (Clear) Urine pH (5.0-8.0) Ur Specific [place] (1.001-1.035) Urine Protein (Negative) Urine Glucose (UA) (Negative) Urine Ketones (Negative) Urine Blood (Negative) Urine Nitrite (Negative) Urine Bilirubin (Negative) Urine Urobilinogen (<2.0) mg/dL Ur Leukocyte Esterase (Negative) Urine HCG, Qual Not Detected (Not Detectd) - Radiology Data Radiology results: report reviewed, image reviewed 2 views of the abdomen are obtained. There is no sign of intestinal structure pneumoperitoneum. Fecal pattern is normal. There are clips are cholecystectomy. Lung bases are clear. There are no pathologic calcifications over the kidneys. Impression by Dr. Medrano shows nonacute abdomen with no change. Disposition Clinical Impression: Abdominal pain Disposition: HOME SELF-CARE Condition: Good Instructions: Abdominal Pain (ED) Additional Instructions: Increase fluids. Follow-up with your surgeon for recheck as soon as possible. Return here immediately for any new, worsening, or concerning symptoms. Is patient prescribed a controlled substance at d/c from ED?: No Referrals: Yennifer Mishra MD [Primary Care Provider] - 1-2 days Time of Disposition: 20:59
--- NOTE | 2018-06-02 20:25 | XR ---
EXAMINATION TYPE: XR KUB DATE OF EXAM: 06/02/2018 COMPARISON: 03/01/2018 HISTORY: Abdominal pain TECHNIQUE: 2 views FINDINGS: There is no sign of intestinal obstruction or pneumoperitoneum. Fecal pattern is normal. Th ere are clips from cholecystectomy. Lung bases are clear. There are no pathologic calcifications over the kidneys. IMPRESSION: Nonacute abdomen. No change.
[2018-06-02 20:29] VITALS: BP 113/73; PULSE 51; RESP 16
== END 2018-06-02 21:12 | disposition home or self-care (01) ==
LOC: EC 17:56
DX: R10.10 Upper abdominal pain, unspecified (principal); R11.0 Nausea; K21.9 Gastro-esophageal reflux disease without esophagitis; F32.9 Major depressive disorder, single episode, unspecified; F41.9 Anxiety disorder, unspecified; Z87.891 Personal history of nicotine dependence; Z79.899 Other long term (current) drug therapy; Z90.49 Acquired absence of other specified parts of digestive tract
CPT/HCPCS: 99284; 96374; 96375; 96361; 36415; 80053; 82150; 83690; 85025; 81003; 81025; 74018; J2405; J3010

== ENCOUNTER → 2018-07-14 | Outpatient (CLI) | payer OTHER ==
--- NOTE | 2018-07-14 12:43 | FL ---
EXAMINATION TYPE: FL UGI air w small bowel DATE OF EXAM: 07/14/2018 COMPARISON: Abdomen 06/02/2018 HISTORY: Nausea and abdomen pain TECHNIQUE: A double contrast UGI study is performed with small bowel follow through. FINDINGS: Fusion Juncture Grinder image of the abdomen shows no gross abnormality. Surgical clips present in the right upper quadrant. The esophagus shows normal motility and emptying into the stomach. No evidence of hiatal hernia or s tricture noted. The stomach shows normal distensibility, peristalsis, and mucosal folds. No evidence of any mass or ulcer disease. No significant esophageal reflux was seen during real time performance of this study. The duodenal bulb and sweep are unremarkable. The small bowel study shows normal transit to the colon in less than 60 minutes. There is normal muc osal fold pattern throughout the small bowel. There is no evidence of any stricture or filling defec t noted. The terminal ileum is unremarkable. IMPRESSION: Normal upper GI study and small bowel follow through.
== END | disposition home or self-care (01) ==
LOC: RADFLMAIN 08:59
PROVIDERS: ATTEND Internal Medicine Gastroenterology
DX: R10.84 Generalized abdominal pain (principal); F41.9 Anxiety disorder, unspecified
CPT/HCPCS: 74249

== ENCOUNTER → 2018-07-17 | Outpatient (CLI) | payer OTHER ==
[2018-07-17 13:04] LABS: ALT 43 U/L (9-52); AST 34 U/L (14-36); Albumin 4.3 g/dL (3.5-5.0); Alkaline Phosphatase 38 U/L (38-126); Anion Gap 8 mmol/L; Blood Urea Nitrogen 12 mg/dL (7-17); Calcium 9.5 mg/dL (8.4-10.2); Carbon Dioxide 27 mmol/L (22-30); Chloride 106 mmol/L (98-107); Creatine Kinase 102 U/L (30-135); Glucose 67 mg/dL (74-99); LDH 450 U/L (313-618); Potassium 4.1 mmol/L (3.5-5.1); Sodium 141 mmol/L (137-145); Total Bilirubin 0.6 mg/dL (0.2-1.3); Total Protein 7.2 g/dL (6.3-8.2)
== END ==
LOC: LABWHC1 11:58
PROVIDERS: ATTEND Internal Medicine Gastroenterology
DX: R74.0 Nonspecific elevation of levels of transaminase and lactic acid dehydrogenase [LDH] (principal)
CPT/HCPCS: 36415; 80053; 82550; 83615

== ENCOUNTER → 2018-09-08 | Outpatient (CLI) | payer OTHER ==
--- NOTE | 2018-09-08 13:50 | MR ---
EXAMINATION TYPE: MR knee LT wo con DATE OF EXAM: 09/08/2018 COMPARISON: X-ray 05/27/2018 HISTORY: Left knee pain TECHNIQUE: Multiplanar, multisequence imaging of the left knee is performed without IV contrast. FINDINGS: MEDIAL MENISCUS: There is peripheral signal along the posterior horn medial meniscus.. LATERAL MENISCUS: Anterior and posterior horns are intact without tear. CRUCIATE LIGAMENTS: The anterior and posterior cruciate ligaments are intact and unremarkable. COLLATERAL LIGAMENTS: The medial collateral ligament and lateral collateral ligament complex are inta ct and unremarkable. EXTENSOR MECHANISM: Visualized quadriceps and patellar tendons are intact. EFFUSION: No significant suprapatellar joint effusion. POPLITEAL CYST: No popliteal/salmeron cyst. TRICOMPARTMENT SPACES: Joint spaces appear to be preserved. No erosive changes. There is a small amou nt of fluid in the suprapatellar bursa. BONE MARROW SIGNAL: No focal abnormal marrow signal is appreciated. OTHER: No additional significant abnormality is appreciated. IMPRESSION: 1. Small amount of fluid in the suprapatellar bursa. Tiny amount of edema in the suprapatellar bursa can be associated with fat pad impingement syndrome. Correlate clinically. 2. Peripheral signal posterior horn medial meniscus may been the basis of myxoid degeneration. Periph eral tear felt less likely.
== END ==
LOC: RADMRIMAIN 11:40
PROVIDERS: ATTEND Family Medicine
DX: M25.462 Effusion, left knee (principal)

== ENCOUNTER → 2018-11-04 | Outpatient (CLI) | payer OTHER ==
--- NOTE | 2018-11-04 16:31 | CT ---
EXAMINATION TYPE: CT soft tissue neck w con DATE OF EXAM: 11/04/2018 4:06 PM COMPARISON: 01/21/2018 HISTORY: Intermittent swelling of cervical lymph nodes bilaterally x 1 year. Chronic lymphadenitis, except mesenteric. CT DLP: 477 mGycm Automated exposure control for dose reduction was used. CONTRAST: CT scan of the neck is performed following with IV Contrast, patient injected with 100 mL of Isovue 3 00. Axial images are obtained, coronal and sagittal reformatted images are reviewed. FINDINGS: There is normal branching pattern of the great vessels on the aortic arch. There is normal contrast o pacification of the carotid arteries and jugular veins. There is normal contrast in the vertebral art eries. Thyroid gland is symmetric. Submandibular salivary glands are fairly symmetric. Parotid glands are symmetric. There is no patholo gic cervical adenopathy. There are cervical lymph nodes measure less than 1 cm. Cervical spine show some straightening. Disc spaces are fairly normal. There is slight narrowing at C 5-6 disc space. There is normal aeration of the visualized paranasal sinuses. There is no evidence of an orbital mass . Epiglottis is normal. Subglottic trachea appears normal. There is no evidence of a pharyngeal mass. The tonsils and adenoids appear normal. IMPRESSION: 1. No pathologic adenopathy identified.
== END | disposition home or self-care (01) ==
LOC: RADCTMAIN 15:27
PROVIDERS: ATTEND Family Medicine
DX: I88.1 Chronic lymphadenitis, except mesenteric (principal)
CPT/HCPCS: 70491; Q9967

== ENCOUNTER → 2018-12-29 | Outpatient (CLI) | payer OTHER ==
[2018-12-29 13:34] LABS: Basophils % (A) 1 %; Eosinophils # (A) 0.2 k/uL (0-0.7); Eosinophils % (A) 4 %; HCT 42.4 % (34.0-46.0); Lymphocytes # (A) 1.1 k/uL (1.0-4.8); Lymphocytes % (A) 20 %; MCH 29.9 pg (25.0-35.0); MCHC 33.1 g/dL (31.0-37.0); MCV 90.4 fL (80.0-100.0); Monocytes # (A) 0.3 k/uL (0-1.0); Monocytes % (A) 5 %; Neutrophils # (A) 3.9 k/uL (1.3-7.7); Neutrophils % (A) 70 %; Platelet Count 242 k/uL (150-450); RBC 4.69 m/uL (3.80-5.40); RDW 12.3 % (11.5-15.5); WBC 5.6 k/uL (3.8-10.6)
[2018-12-29 14:52] LABS: Erythrocyte Sedimentation Rate 10 mm/hr (0-20)
[2018-12-29 18:42] LABS: Albumin 4.2 g/dL (3.80-4.90); Anion Gap 8.4 mmol/L (4.00-12.00); Calcium 8.9 mg/dL (8.7-10.3); Carbon Dioxide 26.6 mmol/L (21.6-31.8); Globulin 2.1 g/dL (1.6-3.3); Potassium 3.8 mmol/L (3.5-5.5); Total Bilirubin 0.5 mg/dL (0.2-1.2); Total Protein 6.3 g/dL (6.2-8.2); Uric Acid 2.8 mg/dL (2.9-7.7)
[2018-12-29 18:46] LABS: Protein, Total 6.3 g/dL (6.2-8.2)
[2018-12-29 18:56] LABS: Vitamin D 25 Hydroxy 59.9 ng/mL (30.0-100.0)
[2018-12-30 12:43] LABS: Albumin 3.82 g/dL (3.80-4.90); Gamma Globulin 0.98 g/dL (0.70-1.50)
== END ==
LOC: LABWHC1 12:33
PROVIDERS: ATTEND Family Medicine
DX: L04.0 Acute lymphadenitis of face, head and neck (principal); K58.1 Irritable bowel syndrome with constipation; E56.1 Deficiency of vitamin K; I88.1 Chronic lymphadenitis, except mesenteric; M17.12 Unilateral primary osteoarthritis, left knee; R41.840 Attention and concentration deficit
CPT/HCPCS: 36415; 80053; 82306; 82607; 82785; 84165; 84480; 84550; 85025; 85652

== ENCOUNTER 2019-01-21 03:14 | Emergency (ER) | payer OTHER ==
[2019-01-21] MEDS ORDERED: KETOROLAC 30 MG/ML 1 ML VIAL IVP STA (03:43)
[2019-01-21] MEDS ORDERED: DIAZEPAM 5 MG/ML 2 ML INJ IVP STA (03:43)
--- NOTE | 2019-01-21 04:07 | ED ---
Back Pain [facility] - General Chief Complaint: Back Pain/Injury Stated Complaint: Back Pain, Leg Pain Time Seen by Provider: 01/21/19 03:25 Source: patient, family Limitations: no limitations - History of Present Illness Initial Comments: This patient is a 38-year-old woman who presents to be evaluated for what she is describing as severe back spasms. She states that they started last evening and then became progressively worse such that she cannot stand the pain anymore this morning. The patient did try a number of medications at home including a nonsteroidal, a left over from [place], and also a muscle relaxant without much relief. The patient is indicating the left low back muscles and states that when it really gets bad she feels like there is a component on the right as well. She is denying other symptoms. She does not have any radiation to the legs. She has not had any change in bladder or bowel function. No saddle anesthesia. She states that if she just lies still the pain is bearable but any time that she gets up or attempts to move a spasm well come on and make it says that she has to lie down Complaint: back pain Onset/Timin -: hour(s) Similar Symptoms Previously: Yes Place: home Radiation: none Severity: severe Quality: other (spasming) Consistency: constant Improves With: none Worsens With: movement Context: unknown Treatments Prior to Arrival: prescription analgesics, other medications - Related Data Home Medications Medication Instructions Recorded Confirmed Multivitamins, Thera [Multivitamin 1 tab PO DAILY 01/27/18 06/02/18 (formulary)] Dicyclomine [Bentyl] 10 mg PO BID PRN 06/02/18 06/02/18 L.acidoph,Paracasei, B.lactis 1 cap PO DAILY 06/02/18 06/02/18 [Probiotic] Lactulose [Cephulac] 20 gm PO TID PRN 06/02/18 06/02/18 Otc 1 tab PO DAILY 06/02/18 06/02/18 Pantoprazole [Protonix] 40 mg PO HS 06/02/18 06/02/18 Vitamin B-12 Liquid 2 dropper MUCOUS MEM DAILY 06/02/18 06/02/18 Vitamin C/Biotin [Hair, Skin and 1 tab PO DAILY 06/02/18 06/02/18 Nails] busPIRone HCl [Buspar] 20 mg PO HS 06/02/18 06/02/18 Previous Rx's Medication Instructions Recorded Docusate [Colace] 100 mg PO BID #60 cap 01/29/18 Methocarbamol [Robaxin-750] 750 mg PO TID PRN #30 tablet 01/21/19 Allergies Allergy/AdvReac Type Severity Reaction Status Date / Time No Known Allergies Allergy Verified 01/21/19 03:23 Review of Systems ROS Statement: Those systems with pertinent positive or pertinent negative responses have been documented in the HPI. ROS Other: All systems not noted in ROS Statement are negative. 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 Past Anesthesia/Blood Transfusion Reactions: Postoperative Nausea & Vomiting (PONV) Past Psychological History: Anxiety, Depression Smoking Status: Former smoker Past Alcohol Use History: Occasional Past Drug Use History: Marijuana - Past Family History Mother History Unknown: Yes (Lyme disease, CAD, pericardial effusion) Additional Family Medical History / Comment(s): Mother has Lyme's dx. Father History Unknown: Yes Additional Family Medical History / Comment(s): Biological father left when pt was a little girl. Brother(s) History Unknown: Yes (Healthy no problems) Sister(s) History Unknown: Yes (No sisters no daughters no sons) General Exam Limitations: no limitations General appearance: alert, in no apparent distress Head exam: Present: atraumatic, normocephalic Respiratory exam: Present: normal lung sounds bilaterally. Absent: respiratory distress, wheezes, rales, rhonchi, stridor Cardiovascular Exam: Present: regular rate, normal rhythm, normal heart sounds. Absent: systolic murmur, diastolic murmur, rubs, gallop GI/Abdominal exam: Present: soft. Absent: distended, tenderness, guarding, rebound, rigid, mass Back exam: Present: normal inspection, muscle spasm, paraspinal tenderness (left). Absent: full ROM, vertebral tenderness, rash noted Neurological exam: Present: reflexes normal. Absent: motor sensory deficit Skin exam: Present: warm, dry, intact, normal color. Absent: rash Course Vital Signs 01/21/19 01/21/19 01/21/19 03:20 04:52 06:19 Temperature 97.8 F 98.2 F 98.2 F Pulse Rate 67 74 64 Respiratory 24 18 18 Rate Blood Pressure 111/71 100/61 98/57 O2 Sat by Pulse 100 98 98 Oximetry 01/21/19 06:45 Temperature Pulse Rate 72 Respiratory 18 Rate Blood Pressure 95/57 O2 Sat by Pulse 97 Oximetry Medical Decision Making - Lab Data Result diagrams: 01/21/19 03:53 01/21/19 03:53 Lab Results 01/21/19 01/21/19 01/21/19 Range/Units 03:50 03:50 03:53 WBC 7.8 (3.8-10.6) k/uL RBC 4.31 (3.80-5.40) m/uL Hgb 13.0 (11.4-16.0) gm/dL Hct 37.3 (34.0-46.0) % MCV 86.4 (80.0-100.0) fL MCH 30.2 (25.0-35.0) pg MCHC 34.9 (31.0-37.0) g/dL RDW 12.5 (11.5-15.5) % Plt Count 222 (150-450) k/uL Neutrophils % 78 % Lymphocytes % 13 % Monocytes % 5 % Eosinophils % 3 % Basophils % 1 % Neutrophils # 6.0 (1.3-7.7) k/uL Lymphocytes # 1.0 (1.0-4.8) k/uL Monocytes # 0.4 (0-1.0) k/uL Eosinophils # 0.2 (0-0.7) k/uL Basophils # 0.0 (0-0.2) k/uL Sodium (137-145) mmol/L Potassium (3.5-5.1) mmol/L Chloride (98-107) mmol/L Carbon Dioxide (22-30) mmol/L Anion Gap mmol/L BUN (7-17) mg/dL Creatinine (0.52-1.04) mg/dL Est GFR (CKD-EPI)AfAm (>60 ml/min/1.73 sqM) Est GFR (CKD-EPI)NonAf (>60 ml/min/1.73 sqM) Glucose (74-99) mg/dL Calcium (8.4-10.2) mg/dL Total Bilirubin (0.2-1.3) mg/dL AST (14-36) U/L ALT (9-52) U/L Alkaline Phosphatase (38-126) U/L C-Reactive Protein (<10.0) mg/L Total Protein (6.3-8.2) g/dL Albumin (3.5-5.0) g/dL Urine Color Yellow Urine Appearance Cloudy H (Clear) Urine pH 5.5 (5.0-8.0) Ur Specific [place] 1.030 (1.001-1.035) Urine Protein 1+ H (Negative) Urine Glucose (UA) Negative (Negative) Urine Ketones Negative (Negative) Urine Blood Large H (Negative) Urine Nitrite Negative (Negative) Urine Bilirubin Negative (Negative) Urine Urobilinogen <2.0 (<2.0) mg/dL Ur Leukocyte Esterase Negative (Negative) Urine RBC 1 (0-5) /hpf Urine WBC 1 (0-5) /hpf Urine Mucus Moderate H (None) /hpf Urine HCG, Qual Not Detected (Not Detectd) 01/21/19 Range/Units 03:53 WBC (3.8-10.6) k/uL RBC (3.80-5.40) m/uL Hgb (11.4-16.0) gm/dL Hct (34.0-46.0) % MCV (80.0-100.0) fL MCH (25.0-35.0) pg MCHC (31.0-37.0) g/dL RDW (11.5-15.5) % Plt Count (150-450) k/uL Neutrophils % % Lymphocytes % % Monocytes % % Eosinophils % % Basophils % % Neutrophils # (1.3-7.7) k/uL Lymphocytes # (1.0-4.8) k/uL Monocytes # (0-1.0) k/uL Eosinophils # (0-0.7) k/uL Basophils # (0-0.2) k/uL Sodium 137 (137-145) mmol/L Potassium 3.6 (3.5-5.1) mmol/L Chloride 106 (98-107) mmol/L Carbon Dioxide 23 (22-30) mmol/L Anion Gap 8 mmol/L BUN 18 H (7-17) mg/dL Creatinine 0.77 (0.52-1.04) mg/dL Est GFR (CKD-EPI)AfAm >90 (>60 ml/min/1.73 sqM) Est GFR (CKD-EPI)NonAf >90 (>60 ml/min/1.73 sqM) Glucose 87 (74-99) mg/dL Calcium 9.4 (8.4-10.2) mg/dL Total Bilirubin 0.4 (0.2-1.3) mg/dL AST 245 H (14-36) U/L ALT 67 H (9-52) U/L Alkaline Phosphatase 45 (38-126) U/L C-Reactive Protein <5.0 (<10.0) mg/L Total Protein 6.7 (6.3-8.2) g/dL Albumin 4.1 (3.5-5.0) g/dL Urine Color Urine Appearance (Clear) Urine pH (5.0-8.0) Ur Specific [place] (1.001-1.035) Urine Protein (Negative) Urine Glucose (UA) (Negative) Urine Ketones (Negative) Urine Blood (Negative) Urine Nitrite (Negative) Urine Bilirubin (Negative) Urine Urobilinogen (<2.0) mg/dL Ur Leukocyte Esterase (Negative) Urine RBC (0-5) /hpf Urine WBC (0-5) /hpf Urine Mucus (None) /hpf Urine HCG, Qual (Not Detectd) Disposition Clinical Impression: Spasm of back muscles Disposition: HOME SELF-CARE Condition: Fair Instructions (If sedation given, give patient instructions): Muscle Spasm (ED) Prescriptions: Methocarbamol [Robaxin-750] 750 mg PO TID PRN #30 tablet PRN Reason: pain Is patient prescribed a controlled substance at d/c from ED?: No Referrals: Yennifer Mishra MD [Primary Care Provider] - 1-2 days
[2019-01-21 04:17] LABS: Basophils % (A) 1 %; Eosinophils # (A) 0.2 k/uL (0-0.7); Eosinophils % (A) 3 %; HCT 37.3 % (34.0-46.0); Lymphocytes % (A) 13 %; MCH 30.2 pg (25.0-35.0); MCHC 34.9 g/dL (31.0-37.0); MCV 86.4 fL (80.0-100.0); Mean Platelet Volume 7.5; Monocytes # (A) 0.4 k/uL (0-1.0); Monocytes % (A) 5 %; Neutrophils % (A) 78 %; Platelet Count 222 k/uL (150-450); RBC 4.31 m/uL (3.80-5.40); RDW 12.5 % (11.5-15.5); WBC 7.8 k/uL (3.8-10.6)
[2019-01-21 04:29] LABS: ALT 67 U/L (9-52); AST 245 U/L (14-36); Albumin 4.1 g/dL (3.5-5.0); Alkaline Phosphatase 45 U/L (38-126); Anion Gap 8 mmol/L; Blood Urea Nitrogen 18 mg/dL (7-17); C Reactive Protein <5.0 mg/L (<10.0); Calcium 9.4 mg/dL (8.4-10.2); Carbon Dioxide 23 mmol/L (22-30); Chloride 106 mmol/L (98-107); Glucose 87 mg/dL (74-99); Potassium 3.6 mmol/L (3.5-5.1); Sodium 137 mmol/L (137-145); Total Bilirubin 0.4 mg/dL (0.2-1.3); Total Protein 6.7 g/dL (6.3-8.2)
[2019-01-21 04:51] LABS: Appearance,Urine Cloudy (Clear); Bilirubin,Urine Negative (Negative); Blood,Urine Large (Negative); Color,Urine Yellow; Glucose,Urine (UA) Negative (Negative); Ketones,Urine Negative (Negative); Leukocyte Esterase,Urine Negative (Negative); Mucus,Urine Moderate /hpf; Nitrite,Urine Negative (Negative); PH, Urine 5.5 (5.0-8.0); Protein,Urine 1+ (Negative); RBC,Urine 1 /hpf (0-5); Urobilinogen,Urine <2.0 mg/dL (<2.0); WBC,Urine 1 /hpf (0-5)
[2019-01-21 04:53] VITALS: RESP 18; TEMP 98.2
--- NOTE | 2019-01-21 05:42 | CT ---
EXAM: CT Lumbar Spine With Intravenous Contrast CLINICAL HISTORY: Pain TECHNIQUE: Axial computed tomography images of the lumbar spine with intravenous contrast. CTDI is 0.199, 0.235, 13.3.13.3 mGy and DLP is 700.4 mGy-cm. This CT exam was performed using one or more of the following dose reduction techniques: automated exposure control, adjustment of the mA and/or kV according to patient size, and/or use of iterative reconstruction technique. COMPARISON: No relevant prior studies available. FINDINGS: Vertebrae: Unremarkable. No acute fracture. Discs/spinal canal/neural foramina: No acute findings. No spinal canal stenosis. Soft tissues: Unremarkable. IMPRESSION: Normal lumbar spine CT.
[2019-01-21] MEDS ORDERED: MORPHINE SULFATE 4 MG/ML SYRINGE IV STA (06:24)
[2019-01-21 07:08] VITALS: BP 97/60; PULSE 60
== END 2019-01-21 07:14 | disposition home or self-care (01) ==
LOC: EC 03:14
DX: M62.830 Muscle spasm of back (principal); K21.9 Gastro-esophageal reflux disease without esophagitis; Z87.891 Personal history of nicotine dependence; F32.9 Major depressive disorder, single episode, unspecified; F41.9 Anxiety disorder, unspecified; Z79.899 Other long term (current) drug therapy
CPT/HCPCS: 36415; 72132; 80053; 81001; 81025; 85025; 86140; 96374; 96375; 99284

== ENCOUNTER → 2019-02-09 | Outpatient (CLI) | payer OTHER ==
--- NOTE | 2019-02-09 15:08 | US ---
EXAMINATION TYPE: US abdomen complete DATE OF EXAM: 02/09/2019 COMPARISON: NONE CLINICAL HISTORY: 38-year-old female R74.0 ELEVATION OF LEVEL OF TRANSAMINASE. TECHNIQUE: Multiple sonographic images of the abdomen are obtained. 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 No specific abnormality identified.
== END | disposition home or self-care (01) ==
LOC: RADUSWWP 10:44
PROVIDERS: ATTEND Family Medicine
DX: R74.0 Nonspecific elevation of levels of transaminase and lactic acid dehydrogenase [LDH] (principal); Z90.49 Acquired absence of other specified parts of digestive tract
CPT/HCPCS: 76700

== ENCOUNTER 2019-02-10 18:27 | Emergency (ER) | payer OTHER ==
[2019-02-10 18:53] VITALS: RESP 18
[2019-02-10] MEDS ORDERED: ONDANSETRON 4 MG/2 ML VIAL IVP STA (19:44)
[2019-02-10] MEDS ORDERED: SODIUM CHLORIDE 0.9% 1,000 ML IV STA (19:44)
[2019-02-10] MEDS ORDERED: HYDROmorphone 0.5 MG/0.5 ML SYRINGE IVP STA (19:44)
[2019-02-10 20:08] LABS: Basophils # (A) 0.1 k/uL (0-0.2); Basophils % (A) 1 %; Eosinophils # (A) 0.2 k/uL (0-0.7); Eosinophils % (A) 4 %; HCT 39.6 % (34.0-46.0); HGB 13.8 gm/dL (11.4-16.0); Lymphocytes # (A) 1.4 k/uL (1.0-4.8); Lymphocytes % (A) 27 %; MCH 30.5 pg (25.0-35.0); MCHC 34.8 g/dL (31.0-37.0); MCV 87.5 fL (80.0-100.0); Mean Platelet Volume 7.6; Monocytes # (A) 0.3 k/uL (0-1.0); Monocytes % (A) 5 %; Neutrophils # (A) 3.1 k/uL (1.3-7.7); Neutrophils % (A) 61 %; Platelet Count 265 k/uL (150-450); RBC 4.53 m/uL (3.80-5.40); RDW 12.4 % (11.5-15.5); WBC 5.1 k/uL (3.8-10.6)
--- NOTE | 2019-02-10 20:09 | ED ---
Abdominal Pain HPI - General Chief Complaint: Abdominal Pain Stated Complaint: liver & kidney problems Time Seen by Provider: 02/10/19 19:21 Source: patient Mode of arrival: ambulatory Limitations: no limitations - History of Present Illness Initial Comments: 38-year-old female patient presents to the emergency department today for evaluation of right upper quadrant abdominal pain. Patient states that she has been feeling unwell for the last 3 months. States she's had repeated upper respiratory infections. Patient states over the last couple of weeks is been feeling very fatigued and drained. States that she was having some muscle cramping and back pain so she did have evaluation here 2 weeks ago with labs showing elevated liver enzymes. Patient has follow-up with her primary care physician did have ultrasound of the right upper quadrant yesterday which was normal. Repeat labs did show worsening liver enzymes. Patient is evaluated for mono which showed remote infection, did have an elevated MARSHA, and was negative for hepatitis. Patient comes in today reporting increased pain to the right upper quadrant. States she has been nauseated but has not been vomiting. She's had normal bowel movements. She denies fever or chills. States that she is sleeping more than usual and just feels sick. Patient denies any recent rash, shortness breath, chest pain, back pain, numbness, tingling, dizziness, weakness, hematuria, dysuria, urinary urgency, urinary frequency, headache, visual changes, or any other complaints. - Related Data Home Medications Medication Instructions Recorded Confirmed Vitamin B-12 Liquid 2 dropper MUCOUS MEM DAILY 06/02/18 02/10/19 Vitamin C/Biotin [Hair, Skin and 1 tab PO DAILY 06/02/18 02/10/19 Nails] ALPRAZolam [Xanax] 0.25 mg PO BID PRN 02/10/19 02/10/19 Amoxic-Pot Clav 500-125 mg 1 tab PO TID 02/10/19 02/10/19 [Augmentin 500-125 mg] Docusate [Colace] 100 mg PO BID PRN 02/10/19 02/10/19 Fluticasone Nasal [place] [Flonase 1 spray EA NOSTRIL BID 02/10/19 02/10/19 Nasal [place]] Methocarbamol [Robaxin-750] 750 - 1,500 mg PO TID PRN 02/10/19 02/10/19 Allergies Allergy/AdvReac Type Severity Reaction Status Date / Time No Known Allergies Allergy Verified 02/10/19 20:01 Review of Systems ROS Statement: Those systems with pertinent positive or pertinent negative responses have been documented in the HPI. ROS Other: All systems not noted in ROS Statement are negative. 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 Past Anesthesia/Blood Transfusion Reactions: Postoperative Nausea & Vomiting (PONV) Past Psychological History: Anxiety, Depression Smoking Status: Former smoker Past Alcohol Use History: Occasional Past Drug Use History: Marijuana - Past Family History Mother History Unknown: Yes (Lyme disease, CAD, pericardial effusion) Additional Family Medical History / Comment(s): Mother has Lyme's dx. Father History Unknown: Yes Additional Family Medical History / Comment(s): Biological father left when pt was a little girl. Brother(s) History Unknown: Yes (Healthy no problems) Sister(s) History Unknown: Yes (No sisters no daughters no sons) General Exam Limitations: no limitations General appearance: alert, in no apparent distress, other (Is a well-developed, well-nourished adult female patient in no acute distress. Vital signs upon presentation are 98.2F, pulse 71, respirations 18, blood pressure 112/74, pulse ox 99% on room air.) Eye exam: Present: normal appearance, PERRL, EOMI. Absent: scleral icterus, conjunctival injection, periorbital swelling ENT exam: Present: normal exam, normal oropharynx, mucous membranes moist Respiratory exam: Present: normal lung sounds bilaterally. Absent: respiratory distress, wheezes, rales, rhonchi, stridor Cardiovascular Exam: Present: regular rate, normal rhythm, normal heart sounds. Absent: systolic murmur, diastolic murmur, rubs, gallop, clicks GI/Abdominal exam: Present: soft, tenderness (Right upper quadrant tenderness), normal bowel sounds. Absent: distended, guarding, rebound, rigid Neurological exam: Present: alert, oriented X3, CN II-XII intact Psychiatric exam: Present: normal affect, normal mood Skin exam: Present: warm, dry, intact, normal color. Absent: rash Course Vital Signs 02/10/19 02/10/19 02/10/19 18:50 21:31 23:22 Temperature 98.2 F 98.6 F Pulse Rate 71 60 62 Respiratory 18 18 18 Rate Blood Pressure 112/74 101/71 100/80 O2 Sat by Pulse 99 100 99 Oximetry Medical Decision Making - Medical Decision Making 38 year-old female patient presented to the emergency department today for evaluation of right upper quadrant abdominal pain. Patient also reports general malaise and illness for the last 3 months worsening over the last 2 weeks. Ph ysical examination does reveal right upper quadrant tenderness. Labs reviewed and were unremarkable, abnormal liver enzymes have him return to normal with this lab evaluation. Patient did have ultrasound outpatient performed yesterday, this showed no acute abnormalities. I did discuss all findings and results with the patient. She is quite concerned regarding her abdominal pain is this is her second visit with similar symptoms. We did perform CT of the abdomen and pelvis for this reason which showed no acute abnormalities. Discussed this result with the patient. She'll be discharged home at this time to follow-up with her primary care physician for recheck as possible. Return parameters were discussed in detail. She verbalizes understanding and agrees this plan. - Lab Data Result diagrams: 02/10/19 19:56 02/10/19 19:56 Lab Results 02/10/19 02/10/19 02/10/19 Range/Units 19:56 19:56 19:56 WBC 5.1 (3.8-10.6) k/uL RBC 4.53 (3.80-5.40) m/uL Hgb 13.8 (11.4-16.0) gm/dL Hct 39.6 (34.0-46.0) % MCV 87.5 (80.0-100.0) fL MCH 30.5 (25.0-35.0) pg MCHC 34.8 (31.0-37.0) g/dL RDW 12.4 (11.5-15.5) % Plt Count 265 (150-450) k/uL Neutrophils % 61 % Lymphocytes % 27 % Monocytes % 5 % Eosinophils % 4 % Basophils % 1 % Neutrophils # 3.1 (1.3-7.7) k/uL Lymphocytes # 1.4 (1.0-4.8) k/uL Monocytes # 0.3 (0-1.0) k/uL Eosinophils # 0.2 (0-0.7) k/uL Basophils # 0.1 (0-0.2) k/uL PT (9.0-12.0) sec INR (<1.2) APTT (22.0-30.0) sec Sodium 142 (137-145) mmol/L Potassium 3.9 (3.5-5.1) mmol/L Chloride 107 (98-107) mmol/L Carbon Dioxide 27 (22-30) mmol/L Anion Gap 8 mmol/L BUN 12 (7-17) mg/dL Creatinine 0.78 (0.52-1.04) mg/dL Est GFR (CKD-EPI)AfAm >90 (>60 ml/min/1.73 sqM) Est GFR (CKD-EPI)NonAf >90 (>60 ml/min/1.73 sqM) Glucose 79 (74-99) mg/dL Calcium 9.6 (8.4-10.2) mg/dL Magnesium 1.8 (1.6-2.3) mg/dL Total Bilirubin 0.7 (0.2-1.3) mg/dL AST 34 (14-36) U/L ALT 51 (9-52) U/L Alkaline Phosphatase 46 (38-126) U/L Total Protein 6.9 (6.3-8.2) g/dL Albumin 4.3 (3.5-5.0) g/dL Amylase 70 (30-110) U/L Lipase 99 (23-300) U/L TSH 1.130 (0.465-4.680) mIU/L Urine Color Urine Appearance (Clear) Urine pH (5.0-8.0) Ur Specific [place] (1.001-1.035) Urine Protein (Negative) Urine Glucose (UA) (Negative) Urine Ketones (Negative) Urine Blood (Negative) Urine Nitrite (Negative) Urine Bilirubin (Negative) Urine Urobilinogen (<2.0) mg/dL Ur Leukocyte Esterase (Negative) Urine HCG, Qual Not Detected (Not Detectd) 02/10/19 02/10/19 Range/Units 19:56 19:56 WBC (3.8-10.6) k/uL RBC (3.80-5.40) m/uL Hgb (11.4-16.0) gm/dL Hct (34.0-46.0) % MCV (80.0-100.0) fL MCH (25.0-35.0) pg MCHC (31.0-37.0) g/dL RDW (11.5-15.5) % Plt Count (150-450) k/uL Neutrophils % % Lymphocytes % % Monocytes % % Eosinophils % % Basophils % % Neutrophils # (1.3-7.7) k/uL Lymphocytes # (1.0-4.8) k/uL Monocytes # (0-1.0) k/uL Eosinophils # (0-0.7) k/uL Basophils # (0-0.2) k/uL PT 10.8 (9.0-12.0) sec INR 1.0 (<1.2) APTT 24.9 (22.0-30.0) sec Sodium (137-145) mmol/L Potassium (3.5-5.1) mmol/L Chloride (98-107) mmol/L Carbon Dioxide (22-30) mmol/L Anion Gap mmol/L BUN (7-17) mg/dL Creatinine (0.52-1.04) mg/dL Est GFR (CKD-EPI)AfAm (>60 ml/min/1.73 sqM) Est GFR (CKD-EPI)NonAf (>60 ml/min/1.73 sqM) Glucose (74-99) mg/dL Calcium (8.4-10.2) mg/dL Magnesium (1.6-2.3) mg/dL Total Bilirubin (0.2-1.3) mg/dL AST (14-36) U/L ALT (9-52) U/L Alkaline Phosphatase (38-126) U/L Total Protein (6.3-8.2) g/dL Albumin (3.5-5.0) g/dL Amylase (30-110) U/L Lipase (23-300) U/L TSH (0.465-4.680) mIU/L Urine Color Yellow Urine Appearance Clear (Clear) Urine pH 6.5 (5.0-8.0) Ur Specific [place] 1.016 (1.001-1.035) Urine Protein Negative (Negative) Urine Glucose (UA) Negative (Negative) Urine Ketones Negative (Negative) Urine Blood Negative (Negative) Urine Nitrite Negative (Negative) Urine Bilirubin Negative (Negative) Urine Urobilinogen <2.0 (<2.0) mg/dL Ur Leukocyte Esterase Negative (Negative) Urine HCG, Qual (Not Detectd) - Radiology Data Radiology results: report reviewed, image reviewed CT abdomen and pelvis with contrast was obtained. Report was reviewed in its entirety. Impression by Dr. Dayna Pino shows no definite acute process. Disposition Clinical Impression: Abdominal pain, Malaise Disposition: HOME SELF-CARE Condition: Good Instructions (If sedation given, give patient instructions): Abdominal Pain (ED), Fatigue (ED) Additional Instructions: Increase fluids. Follow-up with your primary care physician for recheck this as possible. Return to the emergency department immediately for any new, wo rsening, or concerning symptoms. Is patient prescribed a controlled substance at d/c from ED?: No Referrals: Yennifer Mishra MD [Primary Care Provider] - 1-2 days Time of Disposition: 22:32
[2019-02-10 20:10] LABS: Appearance,Urine Clear (Clear); Bilirubin,Urine Negative (Negative); Blood,Urine Negative (Negative); Color,Urine Yellow; Glucose,Urine (UA) Negative (Negative); Ketones,Urine Negative (Negative); Leukocyte Esterase,Urine Negative (Negative); Nitrite,Urine Negative (Negative); PH, Urine 6.5 (5.0-8.0); Protein,Urine Negative (Negative); Specific Gravity,Urine 1.016 (1.001-1.035); Urobilinogen,Urine <2.0 mg/dL (<2.0)
[2019-02-10 20:17] LABS: ALT 51 U/L (9-52); AST 34 U/L (14-36); Albumin 4.3 g/dL (3.5-5.0); Alkaline Phosphatase 46 U/L (38-126); Amylase 70 U/L (30-110); Anion Gap 8 mmol/L; Blood Urea Nitrogen 12 mg/dL (7-17); Calcium 9.6 mg/dL (8.4-10.2); Carbon Dioxide 27 mmol/L (22-30); Chloride 107 mmol/L (98-107); Glucose 79 mg/dL (74-99); Lipase 99 U/L (23-300); Magnesium 1.8 mg/dL (1.6-2.3); Potassium 3.9 mmol/L (3.5-5.1); Sodium 142 mmol/L (137-145); Total Bilirubin 0.7 mg/dL (0.2-1.3); Total Protein 6.9 g/dL (6.3-8.2)
[2019-02-10 20:29] LABS: Partial Thromboplastin Time 24.9 sec (22.0-30.0); Prothrombin Time 10.8 sec (9.0-12.0)
--- NOTE | 2019-02-10 22:27 | CT ---
EXAMINATION TYPE: CT abdomen pelvis w con DATE OF EXAM: 02/10/2019 COMPARISON: CT 03/01/2018 HISTORY: Abdominal pain. CT DLP: 661.6 mGycm Automated exposure control for dose reduction was used. TECHNIQUE: Helical acquisition of images was performed from the lung bases through the pelvis. CONTRAST: Performed without Oral Contrast and with IV Contrast, patient injected with 100ml mL of Iso beth 300. FINDINGS: LUNG BASES: No significant abnormality is appreciated. LIVER/GB: No significant abnormality is appreciated. PANCREAS: No significant abnormality is seen. SPLEEN: No significant abnormality is seen. ADRENALS: No significant abnormality is seen. KIDNEYS: No significant abnormality is seen. FREE AIR: No free air is visualized. RETROPERITONEAL ADENOPATHY: None visualized REPRODUCTIVE ORGANS: Vaginal tampon noted. Trace cul-de-sac fluid is noted, presumably physiologic. 2 cm left adnexal cystic mass, likely functional ovarian cysts. Retroverted uterus noted, with fundus veering left of midline. URINARY BLADDER: No significant abnormality is seen. PELVIC ADENOPATHY: None visualized. OSSEOUS STRUCTURES: No significant abnormality is seen. BOWEL: No significant abnormality is seen. OTHER: No acute vascular findings. IMPRESSION: NO DEFINITE ACUTE PROCESS.
[2019-02-10] MEDS ORDERED: ACET/COD 300 MG/30 MG STARTER PACK 6 TAB BTL PO STA (22:40)
[2019-02-10] MEDS ORDERED: LORazepam 2 MG/ML INJ IV STA (22:40)
[2019-02-10 23:23] VITALS: BP 100/80; PULSE 62; TEMP 98.6
== END 2019-02-10 23:22 | disposition home or self-care (01) ==
LOC: EC 18:27
DX: R10.11 Right upper quadrant pain (principal); R53.81 Other malaise; R53.83 Other fatigue; R25.2 Cramp and spasm; R11.0 Nausea; Z87.891 Personal history of nicotine dependence; Z90.49 Acquired absence of other specified parts of digestive tract; Z87.19 Personal history of other diseases of the digestive system; Z98.890 Other specified postprocedural states; Z79.899 Other long term (current) drug therapy
CPT/HCPCS: 36415; 80053; 84443; 82150; 83690; 83735; 85025; 85610; 85730; 81003; 81025; 74177; 99284; 96374; 96375 ×2; 96361 ×2; J2060; J2405; J1170; Q9967

== ENCOUNTER → 2019-03-11 | Outpatient (CLI) | payer OTHER ==
--- NOTE | 2019-03-11 18:02 | CT ---
EXAMINATION TYPE: CT angio chest DATE OF EXAM: 03/11/2019 COMPARISON: NONE HISTORY: SOB and hemoptysis CT DLP: 360 mGycm. Automated Exposure Control for Dose Reduction was Utilized. CONTRAST: CTA scan of the thorax is performed with IV Contrast, patient injected with 100 mL of Isovue 370, pul monary embolism protocol. MIP Images are created on CT scanner and reviewed. FINDINGS: LUNGS: There is minimal biapical pleural parenchymal scarring. The lungs are grossly clear, there is no concerning parenchymal mass or nodule identified. There is no pleural effusion or pneumothorax s een. The tracheobronchial tree is patent. MEDIASTINUM: Incidental note is made of a bovine aortic arch common normal variant. There is satisfac tory enhancement of the pulmonary artery and its branches, there is no CT evidence for pulmonary embo lism. There are no greater than 1 cm hilar or mediastinal lymph nodes. No cardiomegaly is seen. Ve ry trace pericardial effusion. OTHER: Gallbladder surgically absent. IMPRESSION: 1. No evidence of pulmonary embolus. 2. Very trace pericardial effusion is noted. 3. Central tracheobronchial tree remains patent in this patient with hemoptysis.
== END | disposition home or self-care (01) ==
LOC: RADCTMAIN 17:07
PROVIDERS: ATTEND Internal Medicine
DX: I31.3 Pericardial effusion (noninflammatory) (principal); R04.2 Hemoptysis
CPT/HCPCS: 71275; Q9967

== ENCOUNTER 2019-06-25 16:49 | Emergency (ER) | payer OTHER ==
[2019-06-25 16:58] VITALS: TEMP 97.7
[2019-06-25] MEDS ORDERED: ONDANSETRON 4 MG/2 ML VIAL IVP STA ×2 (17:37→18:34)
[2019-06-25] MEDS ORDERED: SODIUM CHLORIDE 0.9% 500 ML 500 ML IV STA (17:37)
[2019-06-25] MEDS ORDERED: SODIUM CHLORIDE 0.9% 1,000 ML IV STA (17:37)
[2019-06-25] MEDS ORDERED: HYDROmorphone 1 MG/ML 1 ML SYRINGE IVP STA (17:38)
--- NOTE | 2019-06-25 17:47 | ED ---
General Adult HPI - General Chief complaint: Abdominal Pain Stated complaint: Abd Pain Time Seen by Provider: 06/25/19 17:00 Source: patient, RN notes reviewed Mode of arrival: ambulatory Limitations: no limitations - History of Present Illness Initial comments: This is a 39-year-old female who presents to the emergency department complaining of abdominal pain. Patient states this is been an ongoing problem since January 2018. Patient states initially it was thought to be a superior mesenteric artery occlusion but is since been indeterminate that is probably not the case. Patient states she had gallbladder surgery when she was a child. Patient denies any other abdominal surgeries. Patient states she's been evaluated for this pain multiple times. Patient states this pain started at 3:00 this morning and his been ongoing. Patient states the pain is diffusely throughout her abdomen and does come in waves. Patient denies any vomiting but does states she is extremely nauseated. Patient denies any diarrhea. Patient states the pain wraps around the left side of her abdomen into her back. Patient denies any fever chills. Patient denies any injury or trauma. - Related Data Home Medications Medication Instructions Recorded Confirmed Cyanocobalamin [Vitamin B-12] 500 mcg PO DAILY 06/25/19 06/25/19 Dextroamphetamine/Amphetamine 10 mg PO SUMOTUWETH PRN 06/25/19 06/25/19 [Adderall] Escitalopram [Lexapro] 10 mg PO DAILY 06/25/19 06/25/19 Ferrous Sulfate [Feosol] 325 mg PO DAILY 06/25/19 06/25/19 Multivitamins, Thera [Multivitamin 1 tab PO DAILY 06/25/19 06/25/19 (formulary)] busPIRone HCL 15 mg PO TID 06/25/19 06/25/19 Allergies Allergy/AdvReac Type Severity Reaction Status Date / Time No Known Allergies Allergy Verified 06/25/19 17:45 Review of Systems ROS Statement: Those systems with pertinent positive or pertinent negative responses have been documented in the HPI. ROS Other: All systems not noted in ROS Statement are negative. 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 Past Anesthesia/Blood Transfusion Reactions: Postoperative Nausea & Vomiting (PONV) Past Psychological History: Anxiety, Depression Smoking Status: Former smoker Past Alcohol Use History: Occasional Past Drug Use History: Marijuana - Past Family History Mother History Unknown: Yes (Lyme disease, CAD, pericardial effusion) Additional Family Medical History / Comment(s): Mother has Lyme's dx. Father History Unknown: Yes Additional Family Medical History / Comment(s): Biological father left when pt was a little girl. Brother(s) History Unknown: Yes (Healthy no problems) Sister(s) History Unknown: Yes (No sisters no daughters no sons) General Exam - General Exam Comments Initial Comments: GENERAL: Patient is well-developed and well-nourished. Patient is nontoxic and well- hydrated and is in moderate distress. ENT: Neck is soft and supple. No significant lymphadenopathy is noted. Oropharynx is clear. Moist mucous membranes. Neck has full range of motion without eliciting any pain. EYES: The sclera were anicteric and conjunctiva were pink and moist. Extraocular movements were intact and pupils were equal round and reactive to light. Eyelids were unremarkable. PULMONARY: Unlabored respirations. Good breath sounds bilaterally. No audible rales rhonchi or wheezing was noted. CARDIOVASCULAR: There is a regular rate and rhythm without any murmurs gallops or rubs. ABDOMEN: No rebound or guarding however patient has diffuse abdominal tenderness SKIN: Skin is clear with no lesions or rashes and otherwise unremarkable. NEUROLOGIC: Patient is alert and oriented x3. Cranial nerves II through XII are grossly intact. Motor and sensory are also intact. Normal speech, volume and content. Symmetrical smile. MUSCULOSKELETAL: Normal extremities with adequate strength and full range of motion. No lower extremity swelling or edema. No calf tenderness. LYMPHATICS: No significant lymphadenopathy is noted PSYCHIATRIC: Normal psychiatric evaluation. Limitations: no limitations Course Vital Signs 06/25/19 06/25/19 06/25/19 16:56 17:30 18:40 Temperature 97.7 F Pulse Rate 63 67 63 Respiratory 20 16 16 Rate Blood Pressure 116/76 114/61 108/61 O2 Sat by Pulse 99 100 100 Oximetry Medical Decision Making - Medical Decision Making I will back into reexamine the patient she appeared to be in no distress. I told the patient we found opiates and urine and then she admitted that she took a half a [place] this morning that she had initially gotten in [place] and she only took half the pill there and brought the other half home with her. Patient states she will follow-up with Dr. Mishra tomorrow - Lab Data Result diagrams: 06/25/19 17:33 06/25/19 17:33 Lab Results 06/25/19 06/25/19 06/25/19 Range/Units 17:33 17:33 17:33 WBC 10.4 (3.8-10.6) k/uL RBC 4.97 (3.80-5.40) m/uL Hgb 15.3 (11.4-16.0) gm/dL Hct 43.2 (34.0-46.0) % MCV 87.0 (80.0-100.0) fL MCH 30.8 (25.0-35.0) pg MCHC 35.4 (31.0-37.0) g/dL RDW 12.3 (11.5-15.5) % Plt Count 229 (150-450) k/uL Neutrophils % 73 % Lymphocytes % 17 % Monocytes % 6 % Eosinophils % 2 % Basophils % 1 % Neutrophils # 7.6 (1.3-7.7) k/uL Lymphocytes # 1.8 (1.0-4.8) k/uL Monocytes # 0.6 (0-1.0) k/uL Eosinophils # 0.2 (0-0.7) k/uL Basophils # 0.1 (0-0.2) k/uL Sodium 139 (137-145) mmol/L Potassium 3.7 (3.5-5.1) mmol/L Chloride 104 (98-107) mmol/L Carbon Dioxide 24 (22-30) mmol/L Anion Gap 11 mmol/L BUN 12 (7-17) mg/dL Creatinine 0.81 (0.52-1.04) mg/dL Est GFR (CKD-EPI)AfAm >90 (>60 ml/min/1.73 sqM) Est GFR (CKD-EPI)NonAf >90 (>60 ml/min/1.73 sqM) Glucose 83 (74-99) mg/dL Plasma Lactic Acid Tee (0.7-2.0) mmol/L Calcium 9.7 (8.4-10.2) mg/dL Total Bilirubin 0.7 (0.2-1.3) mg/dL AST 33 (14-36) U/L ALT 20 (9-52) U/L Alkaline Phosphatase 49 (38-126) U/L Total Protein 8.4 H (6.3-8.2) g/dL Albumin 5.0 (3.5-5.0) g/dL Amylase 80 (30-110) U/L Lipase 72 (23-300) U/L Urine Color Yellow Urine Appearance Cloudy H (Clear) Urine pH 6.0 (5.0-8.0) Ur Specific [place] 1.009 (1.001-1.035) Urine Protein Negative (Negative) Urine Glucose (UA) Negative (Negative) Urine Ketones Negative (Negative) Urine Blood Negative (Negative) Urine Nitrite Negative (Negative) Urine Bilirubin Negative (Negative) Urine Urobilinogen <2.0 (<2.0) mg/dL Ur Leukocyte Esterase Negative (Negative) Urine RBC 2 (0-5) /hpf Urine WBC 4 (0-5) /hpf Ur Squamous Epith Cells 11 H (0-4) /hpf Urine Bacteria Many H (None) /hpf Urine Mucus Rare H (None) /hpf Urine Opiates Screen Detected H (NotDetected) Ur Oxycodone Screen Not Detected (NotDetected) Urine Methadone Screen Not Detected (NotDetected) Ur Propoxyphene Screen Not Detected (NotDetected) Ur Barbiturates Screen Not Detected (NotDetected) U Tricyclic Antidepress Not Detected (NotDetected) Ur Phencyclidine Scrn Not Detected (NotDetected) Ur Amphetamines Screen Not Detected (NotDetected) U Methamphetamines Scrn Not Detected (NotDetected) U Benzodiazepines Scrn Not Detected (NotDetected) Urine Cocaine Screen Not Detected (NotDetected) U Marijuana (THC) Screen Detected H (NotDetected) 06/25/19 Range/Units 17:33 WBC (3.8-10.6) k/uL RBC (3.80-5.40) m/uL Hgb (11.4-16.0) gm/dL Hct (34.0-46.0) % MCV (80.0-100.0) fL MCH (25.0-35.0) pg MCHC (31.0-37.0) g/dL RDW (11.5-15.5) % Plt Count (150-450) k/uL Neutrophils % % Lymphocytes % % Monocytes % % Eosinophils % % Basophils % % Neutrophils # (1.3-7.7) k/uL Lymphocytes # (1.0-4.8) k/uL Monocytes # (0-1.0) k/uL Eosinophils # (0-0.7) k/uL Basophils # (0-0.2) k/uL Sodium (137-145) mmol/L Potassium (3.5-5.1) mmol/L Chloride (98-107) mmol/L Carbon Dioxide (22-30) mmol/L Anion Gap mmol/L BUN (7-17) mg/dL Creatinine (0.52-1.04) mg/dL Est GFR (CKD-EPI)AfAm (>60 ml/min/1.73 sqM) Est GFR (CKD-EPI)NonAf (>60 ml/min/1.73 sqM) Glucose (74-99) mg/dL Plasma Lactic Acid Tee 0.9 (0.7-2.0) mmol/L Calcium (8.4-10.2) mg/dL Total Bilirubin (0.2-1.3) mg/dL AST (14-36) U/L ALT (9-52) U/L Alkaline Phosphatase (38-126) U/L Total Protein (6.3-8.2) g/dL Albumin (3.5-5.0) g/dL Amylase (30-110) U/L Lipase (23-300) U/L Urine Color Urine Appearance (Clear) Urine pH (5.0-8.0) Ur Specific [place] (1.001-1.035) Urine Protein (Negative) Urine Glucose (UA) (Negative) Urine Ketones (Negative) Urine Blood (Negative) Urine Nitrite (Negative) Urine Bilirubin (Negative) Urine Urobilinogen (<2.0) mg/dL Ur Leukocyte Esterase (Negative) Urine RBC (0-5) /hpf Urine WBC (0-5) /hpf Ur Squamous Epith Cells (0-4) /hpf Urine Bacteria (None) /hpf Urine Mucus (None) /hpf Urine Opiates Screen (NotDetected) Ur Oxycodone Screen (NotDetected) Urine Methadone Screen (NotDetected) Ur Propoxyphene Screen (NotDetected) Ur Barbiturates Screen (NotDetected) U Tricyclic Antidepress (NotDetected) Ur Phencyclidine Scrn (NotDetected) Ur Amphetamines Screen (NotDetected) U Methamphetamines Scrn (NotDetected) U Benzodiazepines Scrn (NotDetected) Urine Cocaine Screen (NotDetected) U Marijuana (THC) Screen (NotDetected) Disposition Clinical Impression: Abdominal pain Disposition: HOME SELF-CARE Instructions (If sedation given, give patient instructions): Abdominal Pain (ED) Is patient prescribed a controlled substance at d/c from ED?: No Referrals: Yennifer Mishra MD [Primary Care Provider] - 1-2 days Time of Disposition: 20:13
[2019-06-25 17:52] LABS: Basophils # (A) 0.1 k/uL (0-0.2); Basophils % (A) 1 %; Eosinophils # (A) 0.2 k/uL (0-0.7); Eosinophils % (A) 2 %; HCT 43.2 % (34.0-46.0); HGB 15.3 gm/dL (11.4-16.0); Lymphocytes # (A) 1.8 k/uL (1.0-4.8); Lymphocytes % (A) 17 %; MCH 30.8 pg (25.0-35.0); MCHC 35.4 g/dL (31.0-37.0); Mean Platelet Volume 7.2; Monocytes # (A) 0.6 k/uL (0-1.0); Monocytes % (A) 6 %; Neutrophils # (A) 7.6 k/uL (1.3-7.7); Neutrophils % (A) 73 %; Platelet Count 229 k/uL (150-450); RBC 4.97 m/uL (3.80-5.40); RDW 12.3 % (11.5-15.5); WBC 10.4 k/uL (3.8-10.6)
[2019-06-25 18:01] LABS: ALT 20 U/L (9-52); AST 33 U/L (14-36); African American GFR (CKD) >90 (>60 ml/min/1.73 sqM); Alkaline Phosphatase 49 U/L (38-126); Amylase 80 U/L (30-110); Anion Gap 11 mmol/L; Appearance,Urine Cloudy (Clear); Bacteria,Urine Many /hpf; Bilirubin,Urine Negative (Negative); Blood Urea Nitrogen 12 mg/dL (7-17); Blood,Urine Negative (Negative); Calcium 9.7 mg/dL (8.4-10.2); Carbon Dioxide 24 mmol/L (22-30); Chloride 104 mmol/L (98-107); Color,Urine Yellow; Glucose 83 mg/dL (74-99); Glucose,Urine (UA) Negative (Negative); Ketones,Urine Negative (Negative); Leukocyte Esterase,Urine Negative (Negative); Mucus,Urine Rare /hpf; Nitrite,Urine Negative (Negative); Potassium 3.7 mmol/L (3.5-5.1); Protein,Urine Negative (Negative); RBC,Urine 2 /hpf (0-5); Sodium 139 mmol/L (137-145); Specific Gravity,Urine 1.009 (1.001-1.035); Squamous Epithelial Cell,Urine 11 /hpf (0-4); Total Bilirubin 0.7 mg/dL (0.2-1.3); Total Protein 8.4 g/dL (6.3-8.2); Urobilinogen,Urine <2.0 mg/dL (<2.0); WBC,Urine 4 /hpf (0-5)
[2019-06-25 18:04] LABS: Amphetamine Screen,Urine Not Detected (NotDetected); Barbiturate Screen,Urine Not Detected (NotDetected); Benzodiazepines Screen,Urine Not Detected (NotDetected); Cocaine Screen,Urine Not Detected (NotDetected); Methadone Screen, Urine Not Detected (NotDetected); Opiate Screen,Urine Detected (NotDetected); Oxycodone Screen, Urine Not Detected (NotDetected); Phencyclidine Screen,Urine Not Detected (NotDetected); Tricyclic Antidepressant,Urine Not Detected (NotDetected); Urn Cannabinoid Scrn Detected (NotDetected)
--- NOTE | 2019-06-25 18:14 | XR ---
EXAMINATION TYPE: XR KUB DATE OF EXAM: 06/25/2019 COMPARISON: 06/02/2018 HISTORY: Pain TECHNIQUE: 2 views upright FINDINGS: There is no sign of intestinal obstruction or pneumoperitoneum. Fecal pattern is normal. Th ere are clips from cholecystectomy. Lung bases are clear. There is no evidence of a mass. IMPRESSION: Nonacute abdomen. No change.
[2019-06-25 18:40] VITALS: RESP 16
[2019-06-25] MEDS ORDERED: ONDANSETRON 4 MG ODT STARTER PACK 2 TAB BTL PO STA (20:14)
[2019-06-25 20:29] VITALS: BP 109/71; PULSE 56
== END 2019-06-25 20:29 | disposition home or self-care (01) ==
LOC: EC 16:49
DX: R10.9 Unspecified abdominal pain (principal); R11.0 Nausea; F41.9 Anxiety disorder, unspecified; F32.9 Major depressive disorder, single episode, unspecified; Z79.899 Other long term (current) drug therapy; Z87.891 Personal history of nicotine dependence; Z90.49 Acquired absence of other specified parts of digestive tract
CPT/HCPCS: 36415; 80053; 82150; 83605; 83690; 85025; 81001; 80306; 74018; 99284; 96374; 96375; 96376; 96361 ×3; J2405; J1170; S0119

== ENCOUNTER 2019-08-04 15:50 | Inpatient (IN) | payer OTHER ==
[2019-08-04] MEDS ORDERED: SODIUM CHLORIDE 0.9% 1,000 ML IV STA (17:31)
[2019-08-04] MEDS ORDERED: KETOROLAC 30 MG/ML 1 ML VIAL IVP STA (17:31)
[2019-08-04] MEDS ORDERED: ONDANSETRON 4 MG/2 ML VIAL IVP STA (17:31)
[2019-08-04 17:50] LABS: Appearance,Urine Clear (Clear); Bilirubin,Urine Negative (Negative); Blood,Urine Negative (Negative); Color,Urine Light Yellow; Glucose,Urine (UA) Negative (Negative); Ketones,Urine Negative (Negative); Leukocyte Esterase,Urine Negative (Negative); Nitrite,Urine Negative (Negative); PH, Urine 6.5 (5.0-8.0); Protein,Urine Negative (Negative); Specific Gravity,Urine 1.004 (1.001-1.035); Urobilinogen,Urine <2.0 mg/dL (<2.0)
--- NOTE | 2019-08-04 17:54 | ED ---
Back Pain HPI - General Chief Complaint: Back Pain/Injury Stated Complaint: BACK PAIN, Hx NUTCRACKER SYNDROME Time Seen by Provider: 08/04/19 17:13 Source: patient Limitations: no limitations - History of Present Illness Initial Comments: Patient is a 39-year-old female with history of left-sided renal nutcracker syndrome is presenting to the emergency department with a chief complaint of left-sided back pain. Patient reports the symptoms began about 4 days ago and it increased in severity. Patient reports 3 days ago she also noticed gross hematuria which has resolved since. Patient reports left-sided flank pain along with left-sided back pain and thoracic region. Patient denies urgency frequency or dysuria. Patient denies any constipation or diarrhea. Patient does report continuous nausea last 4 days with no vomiting. She denies any night sweats fevers or chills. Patient reports taking [id number] analgesics minimal improvement. - Related Data Home Medications Medication Instructions Recorded Confirmed Cyanocobalamin [Vitamin B-12] 500 mcg PO DAILY 06/25/19 08/04/19 Multivitamins, Thera [Multivitamin 1 tab PO DAILY 06/25/19 08/04/19 (formulary)] busPIRone HCL 15 mg PO BID PRN 06/25/19 08/04/19 ALPRAZolam [Xanax] 0.5 mg PO HS PRN 08/04/19 08/04/19 Venlafaxine HCl ER [Effexor Xr] 75 mg PO DAILY 08/04/19 08/04/19 Allergies Allergy/AdvReac Type Severity Reaction Status Date / Time No Known Allergies Allergy Verified 08/04/19 17:32 Review of Systems ROS Statement: Those systems with pertinent positive or pertinent negative responses have been documented in the HPI. ROS Other: All systems not noted in ROS Statement are negative. 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 Past Anesthesia/Blood Transfusion Reactions: Postoperative Nausea & Vomiting (PONV) Past Psychological History: Anxiety, Depression Smoking Status: Former smoker Past Alcohol Use History: Occasional Past Drug Use History: Marijuana - Past Family History Mother History Unknown: Yes (Lyme disease, CAD, pericardial effusion) Additional Family Medical History / Comment(s): Mother has Lyme's dx. Father History Unknown: Yes Additional Family Medical History / Comment(s): Biological father left when pt was a little girl. Brother(s) History Unknown: Yes (Healthy no problems) Sister(s) History Unknown: Yes (No sisters no daughters no sons) General Exam Limitations: no limitations Course Vital Signs 08/04/19 08/04/19 08/04/19 16:24 18:27 19:47 Temperature 98.7 F Pulse Rate 75 Respiratory 18 20 16 Rate Blood Pressure 128/88 O2 Sat by Pulse 99 Oximetry Medical Decision Making - Medical Decision Making Patient is a 39-year-old female with history of renal nutcracker syndrome is presenting to the emergency department with a chief complaint of left-sided back pain. This is an ongoing issue for the past 4 days with increased severity nausea or vomiting. Laboratory results are unremarkable. CT of abdomen and pelvis is indicative of bilateral hydronephrosis but it is more severe in the left versus the right. This is the side the patient has the nutcracker syndrome. Patient will be admitted for further medical management. Patient given fluids, analgesia and antiemetics. Case discussed with . Admitting Physician is Dr. Aguero. Vascular surgery and urology consult. - Lab Data Result diagrams: 08/04/19 18:00 08/04/19 18:00 Lab Results 08/04/19 08/04/19 08/04/19 Range/Units 17:40 18:00 18:00 WBC 5.8 (3.8-10.6) k/uL RBC 4.31 (3.80-5.40) m/uL Hgb 13.3 (11.4-16.0) gm/dL Hct 37.6 (34.0-46.0) % MCV 87.1 (80.0-100.0) fL MCH 30.7 (25.0-35.0) pg MCHC 35.2 (31.0-37.0) g/dL RDW 12.1 (11.5-15.5) % Plt Count 240 (150-450) k/uL Sodium 140 (137-145) mmol/L Potassium 3.9 (3.5-5.1) mmol/L Chloride 106 (98-107) mmol/L Carbon Dioxide 26 (22-30) mmol/L Anion Gap 8 mmol/L BUN 7 (7-17) mg/dL Creatinine 0.76 (0.52-1.04) mg/dL Est GFR (CKD-EPI)AfAm >90 (>60 ml/min/1.73 sqM) Est GFR (CKD-EPI)NonAf >90 (>60 ml/min/1.73 sqM) Glucose 77 (74-99) mg/dL Calcium 9.5 (8.4-10.2) mg/dL Total Bilirubin 0.4 (0.2-1.3) mg/dL AST 30 (14-36) U/L ALT 28 (9-52) U/L Alkaline Phosphatase 49 (38-126) U/L Total Protein 7.3 (6.3-8.2) g/dL Albumin 4.3 (3.5-5.0) g/dL Urine Color Light Yellow Urine Appearance Clear (Clear) Urine pH 6.5 (5.0-8.0) Ur Specific [place] 1.004 (1.001-1.035) Urine Protein Negative (Negative) Urine Glucose (UA) Negative (Negative) Urine Ketones Negative (Negative) Urine Blood Negative (Negative) Urine Nitrite Negative (Negative) Urine Bilirubin Negative (Negative) Urine Urobilinogen <2.0 (<2.0) mg/dL Ur Leukocyte Esterase Negative (Negative) Disposition Clinical Impression: Hydronephrosis Disposition: ADMITTED IP TO THIS HOSP Condition: Stable Instructions (If sedation given, give patient instructions): Acute Low Back Pain (ED) Additional Instructions: Patient will be admitted Is patient prescribed a controlled substance at d/c from ED?: No Referrals: Yennifer Mishra MD [Primary Care Provider] - 1-2 days Time of Disposition: 19:56
[2019-08-04] MEDS ORDERED: MORPHINE SULFATE 4 MG/ML SYRINGE IVP STA (18:21)
[2019-08-04 18:46] LABS: HCT 37.6 % (34.0-46.0); HGB 13.3 gm/dL (11.4-16.0); MCH 30.7 pg (25.0-35.0); MCHC 35.2 g/dL (31.0-37.0); MCV 87.1 fL (80.0-100.0); Mean Platelet Volume 6.6; Platelet Count 240 k/uL (150-450); RBC 4.31 m/uL (3.80-5.40); RDW 12.1 % (11.5-15.5); WBC 5.8 k/uL (3.8-10.6)
[2019-08-04 19:07] LABS: ALT 28 U/L (9-52); AST 30 U/L (14-36); African American GFR (CKD) >90 (>60 ml/min/1.73 sqM); Albumin 4.3 g/dL (3.5-5.0); Alkaline Phosphatase 49 U/L (38-126); Anion Gap 8 mmol/L; Blood Urea Nitrogen 7 mg/dL (7-17); Calcium 9.5 mg/dL (8.4-10.2); Carbon Dioxide 26 mmol/L (22-30); Chloride 106 mmol/L (98-107); Glucose 77 mg/dL (74-99); Non-African American GFR(CKD) >90 (>60 ml/min/1.73 sqM); Potassium 3.9 mmol/L (3.5-5.1); Sodium 140 mmol/L (137-145); Total Bilirubin 0.4 mg/dL (0.2-1.3); Total Protein 7.3 g/dL (6.3-8.2)
--- NOTE | 2019-08-04 19:21 | CT ---
EXAMINATION TYPE: CT abdomen pelvis w con DATE OF EXAM: 08/04/2019 COMPARISON: 02/10/2019 HISTORY: Left flank pain. CT DLP: 669.2 mGycm Automated exposure control for dose reduction was used. TECHNIQUE: Helical acquisition of images was performed from the lung bases through the pelvis. CONTRAST: Performed without Oral Contrast and with IV Contrast, patient injected with 100 mL of Isovue M300. FINDINGS: Lung bases are clear. There is no pleural effusion. Heart size is normal. There is no pericardial eff usion. Liver shows no focal defect. There are clips from cholecystectomy. The bile ducts are not dilated. Sp danish and pancreas appear normal. Stomach appears normal. There is no adrenal mass. There is severe left-sided hydronephrosis. Ureters are not dilated. There i s no evidence of a renal calculus. There is slight prominence of the right renal pelvis also. The del ayed images showed decreased contrast excretion on the left side compared to the right. There is also minimal cortical thinning of the left kidney compared to the right. Delayed images show normal excretion on the right side. Bladder distends smoothly. There is no inguinal hernia. There is no free fluid in the pelvis. Appendi x is not seen. There is no sign of appendicitis. Uterus is retroverted. There is no free fluid in the pelvis. There is no evidence of a pelvic mass. There is no mesenteric edema. There is no ascites or free air. The lumbar spine is intact. Bony pelvis is intact. IMPRESSION: THERE IS BILATERAL HYDRONEPHROSIS AND MUCH MORE SEVERE ON THE LEFT SIDE. THERE IS PROBABLY OBSTRUCTIO N AT THE LEFT URETEROPELVIC JUNCTION. OBSTRUCTION IS NEW COMPARED TO OLD EXAM ON THE LEFT SIDE. ON TH E RIGHT SIDE THERE IS NO SIGN OF OBSTRUCTION. NO CALCULUS IDENTIFIED. There is also mild new left rupa al atrophy compared to the right kidney compared to old exam.
[2019-08-04] MEDS ORDERED: NALOXONE 0.4 MG/ML 1 ML VIAL IV PRN (19:45)
[2019-08-04] MEDS ORDERED: ALPRAZolam 0.5 MG TAB PO STA (20:34)
[2019-08-04] MEDS: HYDROmorphone 0.5 MG/0.5 ML SYRINGE IVP PRN (22:33)
[2019-08-04 23:42] VITALS: BMI 23.1
[2019-08-05] MEDS: MORPHINE SULFATE 4 MG/ML SYRINGE IV PRN ×2 (01:07→07:47)
[2019-08-05] MEDS: ONDANSETRON 4 MG/2 ML VIAL IVP PRN ×2 (03:17→11:39)
[2019-08-05] MEDS: HYDROmorphone 0.5 MG/0.5 ML SYRINGE IVP PRN ×2 (03:17→12:17)
[2019-08-05] MEDS: ACETAMINOPHEN TAB 325 MG TAB PO PRN ×2 (07:52→14:09)
[2019-08-05] MEDS ORDERED: WATER FOR INJECTION, STERILE 10 ML IV ONE ×2 (10:37→15:01)
[2019-08-05] MEDS: LORazepam 2 MG/ML INJ IV PRN ×2 (10:42→15:05)
[2019-08-05] MEDS ORDERED: ALPRAZolam 0.5 MG TAB PO PRN (10:52)
--- NOTE | 2019-08-05 11:38 | P.NPCON ---
History of Present Illness - Reason for Consult acute renal failure - History of Present Illness Reason for consultation: Hydronephrosis History of present illness: Patient is a 39-year-old female seen in renal consultation for hydronephrosis. Patient denies any history of kidney disease. GFR is at baseline. UA is benign. Patient presented to the hospital due to pain in her back. Patient states the pain started about 2 months ago and has been intermittent. However the last 4-5 days the pain has been quite severe which brought her to the hospital. She underwent CT of the abdomen and pelvis with IV contrast which revealed bilateral hydronephrosis, severe on the left side. Patient denies any hematuria or dysuria. No vomiting or diarrhea. Hemodynamically stable. No fever or chills. Vital signs are stable. General: The patient appeared well nourished and normally developed. HEENT: Head exam is unremarkable. Neck is without jugular venous distension. LUNGS: Lungs are clear to auscultation and percussion. Breath sounds decreased. HEART: Rate and Rhythm are regular. First and second heart sounds normal. No murmurs, rubs or gallops. ABDOMEN: Abdominal exam reveals normal bowel sounds. Non-tender and non- distended. No evidence of peritonitis. EXTREMITITES: No clubbing, cyanosis, or edema. 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 Past Anesthesia/Blood Transfusion Reactions: Postoperative Nausea & Vomiting (PONV) Smoking Status: Never smoker - Past Family History Mother History Unknown: Yes Family Medical History: Fibromyalgia Additional Family Medical History / Comment(s): Mother has Lyme's dx. Father History Unknown: Yes Additional Family Medical History / Comment(s): Biological father left when pt was a little girl. Brother(s) History Unknown: Yes Sister(s) History Unknown: Yes Medications and Allergies Home Medications Medication Instructions Recorded Confirmed Type Cyanocobalamin [Vitamin B-12] 500 mcg PO DAILY 06/25/19 08/05/19 History Multivitamins, Thera [Multivitamin 1 tab PO DAILY 06/25/19 08/05/19 History (formulary)] busPIRone HCL 15 mg PO BID PRN 06/25/19 08/05/19 History ALPRAZolam [Xanax] 0.5 mg PO HS PRN 08/04/19 08/05/19 History Venlafaxine HCl ER [Effexor Xr] 75 mg PO DAILY 08/04/19 08/05/19 History Allergies Allergy/AdvReac Type Severity Reaction Status Date / Time No Known Allergies Allergy Verified 08/04/19 17:32 Physical Exam Vitals: Vital Signs Temp Pulse Pulse Resp BP BP Pulse Ox 08/05/19 09:00 76 16 08/05/19 08:04 97.8 F 65 18 118/79 96 08/05/19 00:00 60 18 08/04/19 23:44 97.8 F 60 18 128/84 99 08/04/19 22:37 98.1 F 72 16 103/66 98 08/04/19 20:39 67 16 133/80 100 08/04/19 19:47 16 08/04/19 18:27 20 08/04/19 16:24 98.7 F 75 18 128/88 99 Intake and Output 08/04/19 08/05/19 08/05/19 22:59 06:59 14:59 Output Total 200 600 Balance -200 -600 Output: Urine 200 600 Other: Voiding Method Toilet Toilet # Voids 400 Weight 66.95 kg Results - Lab Results Most recent lab results Calcium 9.5 mg/dL (8.4-10.2) 08/04/19 18:00 08/04/19 18:00 08/04/19 18:00 Assessment and Plan Plan: Assessment: 1. Bilateral hydronephrosis, severe on the left side. No evidence of kidney stones. Unclear etiology. GFR at baseline. Plan: With benign UA and normal GFR, no changes from nephrology standpoint. Recommend urology consult for the hydronephrosis and further intervention. Thank you for the consultation. I will continue to follow the patient with you during her hospital stay.
[2019-08-05] MEDS ORDERED: VENLAFAXINE HCL ER 75 MG CAP PO SCH (12:30)
[2019-08-05 12:50] VITALS: BP 109/69; PULSE 69; RESP 20; TEMP 98.2
--- NOTE | 2019-08-05 13:05 | P.GSCN ---
History of Present Illness Consult date: 08/05/19 History of present illness: The patient is a 39 y/o female with a past history of Nutcracker Syndrome diagnosed 18 months ago, digestive issues and anxiety. She presented to the ER after having non-remitting L flank pain for the past 4-5 days. In the past, she had occasional bouts of pain that would seemingly improve after 1-2 days. She denies any pain on urination, any fevers, chills, nausea or vomitting. Flank pain is only controlled with pain medication. She denies any perineal/vulvar varicosities. 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 Past Anesthesia/Blood Transfusion Reactions: Postoperative Nausea & Vomiting (PONV) Smoking Status: Never smoker - Past Family History Mother History Unknown: Yes Family Medical History: Fibromyalgia Additional Family Medical History / Comment(s): Mother has Lyme's dx. Father History Unknown: Yes Additional Family Medical History / Comment(s): Biological father left when pt was a little girl. Brother(s) History Unknown: Yes Sister(s) History Unknown: Yes Medications and Allergies Home Medications Medication Instructions Recorded Confirmed Type Cyanocobalamin [Vitamin B-12] 500 mcg PO DAILY 06/25/19 08/05/19 History Multivitamins, Thera [Multivitamin 1 tab PO DAILY 06/25/19 08/05/19 History (formulary)] busPIRone HCL 15 mg PO BID PRN 06/25/19 08/05/19 History ALPRAZolam [Xanax] 0.5 mg PO HS PRN 08/04/19 08/05/19 History Venlafaxine HCl ER [Effexor Xr] 75 mg PO DAILY 08/04/19 08/05/19 History Allergies Allergy/AdvReac Type Severity Reaction Status Date / Time No Known Allergies Allergy Verified 08/04/19 17:32 Surgical - Exam Vital Signs Temp Pulse Resp BP Pulse Ox 98.7 F 75 18 128/88 99 08/04/19 16:24 08/04/19 16:24 08/04/19 16:24 08/04/19 16:24 08/04/19 16:24 - General well developed, well nourished, no distress - Eyes PERRL - ENT normal pinna, normal nares, normal mucosa - Neck no masses, no bruits, trachea midline - Respiratory normal expansion, normal respiratory effort - Cardiovascular Rhythm: regular - Abdomen L flank TTP Abdomen: soft, non tender - Integumentary no rash, no growths - Neurologic normal coordination, normal sensation - Musculoskeletal normal gait - Psychiatric anxious oriented to time, oriented to person, oriented to place, speech is normal Results Computed tomography scan is reviewed. Significant hydronephrosis without any hydroureter - Labs 08/04/19 18:00 08/04/19 18:00 Diabetes panel 08/04/19 Range/Units 18:00 Sodium 140 (137-145) mmol/L Potassium 3.9 (3.5-5.1) mmol/L Chloride 106 (98-107) mmol/L Carbon Dioxide 26 (22-30) mmol/L BUN 7 (7-17) mg/dL Creatinine 0.76 (0.52-1.04) mg/dL Glucose 77 (74-99) mg/dL Calcium 9.5 (8.4-10.2) mg/dL AST 30 (14-36) U/L ALT 28 (9-52) U/L Alkaline Phosphatase 49 (38-126) U/L Total Protein 7.3 (6.3-8.2) g/dL Albumin 4.3 (3.5-5.0) g/dL Calcium panel 08/04/19 Range/Units 18:00 Calcium 9.5 (8.4-10.2) mg/dL Albumin 4.3 (3.5-5.0) g/dL Pituitary panel 08/04/19 Range/Units 18:00 Sodium 140 (137-145) mmol/L Potassium 3.9 (3.5-5.1) mmol/L Chloride 106 (98-107) mmol/L Carbon Dioxide 26 (22-30) mmol/L BUN 7 (7-17) mg/dL Creatinine 0.76 (0.52-1.04) mg/dL Glucose 77 (74-99) mg/dL Calcium 9.5 (8.4-10.2) mg/dL Adrenal panel 08/04/19 Range/Units 18:00 Sodium 140 (137-145) mmol/L Potassium 3.9 (3.5-5.1) mmol/L Chloride 106 (98-107) mmol/L Carbon Dioxide 26 (22-30) mmol/L BUN 7 (7-17) mg/dL Creatinine 0.76 (0.52-1.04) mg/dL Glucose 77 (74-99) mg/dL Calcium 9.5 (8.4-10.2) mg/dL Total Bilirubin 0.4 (0.2-1.3) mg/dL AST 30 (14-36) U/L ALT 28 (9-52) U/L Alkaline Phosphatase 49 (38-126) U/L Total Protein 7.3 (6.3-8.2) g/dL Albumin 4.3 (3.5-5.0) g/dL Assessment and Plan Assessment: #1 left flank pain #2 previous diagnosis nutcracker syndrome #3 new severe left hydronephrosis Plan: The patient was admitted to hospital for pain control and further evaluation and workup. Upon my evaluation the patient she still states she has significant left flank pain is only controlled by IV medication. She is significantly anx ious regarding her diagnosis and nutcracker syndrome and is very concerned that her renal function is going to deteriorate because of this. I was hopeful that we would be able to provide sufficient pain control and allow patient to have outpatient evaluation and follow-up, she is adamant that she will not be able to tolerate this and would like to be transferred for further workup and evaluation. This will be initiated. She is also informed multiple times that this transfers only for evaluation and decisions for surgical intervention or being left to evaluating positions. She seemingly understands and is still willing and requesting transfer.
[2019-08-05] MEDS ORDERED: METOCLOPRAMIDE 5 MG/ML 2 ML VIAL IVP PRN (14:29)
--- NOTE | 2019-08-05 15:22 | P.HPIM ---
History of Present Illness H&P Date: 08/05/19 Chief Complaint: Abdominal pain HISTORY AND PHYSICAL AND DISCHARGE SUMMARY: This is a 39-year-old female patient of Dr. Mishra with past medical history of gastroesophageal reflux disease, Lyme's disease, generalized anxiety disorder, recurrent depression, marijuana use, left-sided renal nutcracker syndrome diagnosed at [facility]. Patient gives history that for the past 4 days she has had bilateral flank pain worse on the left side. She states over the past couple of months she has had the same thing but he usually feels like a pulled muscle and goes away after brief period. This time she has had it for days and continues to worsen. She denies any fever. She complains of chills and nausea. No vomiting. No diarrhea. She denies any urine in her blood. She denies any difficulty urinating or retention. Patient came into [facility] emergency center for evaluation and CBC was unremarkable, left was within normal limits, BUN 7 creatinine 0.76. Liver function tests were normal. CAT scan of the abdomen and pelvis with contrast revealed bilateral hydronephrosis much more severe on the left side. There is probably obstruction at the left ureteropelvic junction. Obstruction is new com pared to old exam on the left side. On the right side there is no sign of obstruction. No calculus identified. There is also mild new left renal atrophy compared to the right kidney. The patient was evaluated by Dr. Ceballos with recommendations to transfer to [facility] for tertiary care treatment. Patient is agreeable to this and will be transferred once all arrangements are completed. Patient continues to have significant pain to the left flank requiring IV medication as well as now has developed nausea for which Zofran was given and most recently Reglan added. Patient is quite anxious regarding her condition and plan. Review of Systems Constitutional: Reports chills, Reports poor appetite, Denies fatigue, Denies fever, Denies lethargy, Denies malaise, Denies weakness, Denies weight loss Eyes: denies blurred vision, denies pain Ears, nose, mouth and throat: Denies dysphagia, Denies headache, Denies nasal congestion, Denies nasal discharge, Denies sore throat, Denies vertigo Cardiovascular: Denies chest pain, Denies decreased exercise tolerance, Denies d yspnea on exertion, Denies edema, Denies leg edema, Denies lightheadedness, Denies shortness of breath, Denies syncope Respiratory: Denies cough, Denies cough with sputum, Denies dyspnea, Denies excessive sputum, Denies hemoptysis, Denies home oxygen, Denies wheezing Gastrointestinal: Reports loss of appetite, Reports nausea, Denies abdominal pain, Denies diarrhea, Denies vomiting Genitourinary: Reports flank pain, Denies dysuria, Denies hematuria, Denies incomplete emptying, Denies urgency, Denies urinary frequency Musculoskeletal: Denies frequent falls, Denies gait dysfunction, Denies muscle weakness, Denies myalgias Integumentary: Denies pruritus, Denies rash Neurological: Denies change in mentation, Denies change in speech, Denies gait dysfunction, Denies numbness, Denies weakness Psychiatric: Denies anxiety, Denies depression Endocrine: Denies fatigue, Denies weight change Past Medical History Past Medical History: GERD/Reflux Additional Past Medical History / Comment(s): Heart murmur, chronic Reginadl Leon, 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 Past Anesthesia/Blood Transfusion Reactions: Postoperative Nausea & Vomiting (PONV) Smoking Status: Never smoker Additional Past Alcohol Use History / Comment(s): Patient does not smoke tobacco. She does use marijuana on a regular 3 times [address] No [address] drug use. Occasional alcohol use. - Past Family History Mother History Unknown: Yes Family Medical History: Fibromyalgia Additional Family Medical History / Comment(s): Mother is alive with history of Lyme's disease and fibromyalgia. Father History Unknown: Yes Additional Family Medical History / Comment(s): Biological father left when pt was a little girl. Brother(s) History Unknown: Yes Additional Family Medical History / Comment(s): Patient has 1 brother with no major medical problems. Sister(s) History Unknown: Yes Additional Family Medical History / Comment(s): Patient does not have any sisters. Medications and Allergies Home Medications Medication Instructions Recorded Confirmed Type Cyanocobalamin [Vitamin B-12] 500 mcg PO DAILY 06/25/19 08/05/19 History Multivitamins, Thera [Multivitamin 1 tab PO DAILY 06/25/19 08/05/19 History (formulary)] busPIRone HCL 15 mg PO BID PRN 06/25/19 08/05/19 History ALPRAZolam [Xanax] 0.5 mg PO HS PRN 08/04/19 08/05/19 History Venlafaxine HCl ER [Effexor Xr] 75 mg PO DAILY 08/04/19 08/05/19 History Allergies Allergy/AdvReac Type Severity Reaction Status Date / Time No Known Allergies Allergy Verified 08/04/19 17:32 Physical Exam Vitals: Vital Signs Temp Pulse Pulse Resp BP BP Pulse Ox 08/05/19 08:04 97.8 F 65 18 118/79 96 08/05/19 00:00 60 18 08/04/19 23:44 97.8 F 60 18 128/84 99 08/04/19 22:37 98.1 F 72 16 103/66 98 08/04/19 20:39 67 16 133/80 100 08/04/19 19:47 16 08/04/19 18:27 20 08/04/19 16:24 98.7 F 75 18 128/88 99 Intake and Output 08/04/19 08/05/19 08/05/19 22:59 06:59 14:59 Output Total 200 Balance -200 Output: Urine 200 Other: Voiding Method Toilet # Voids 400 Weight 66.95 kg Gen: This is a 39-year-old female. Patient is resting in bed and appears to be uncomfortable secondary to pain and anxiety. HEENT: Head is atraumatic, normocephalic. Pupils equal, round. Sclerae is anicteric. NECK: Supple. No JVD. No lymphadenopathy. No thyromegaly. LUNGS: Clear to auscultation. No wheezes or rhonchi. No intercostal retractions. HEART: Regular rate and rhythm. No murmur. ABDOMEN: Soft. Bowel sounds are present. No masses. No tenderness. Left flank tenderness. EXTREMITIES: No pedal edema. No calf tenderness. Dorsalis pedis +2 bilaterally. NEUROLOGICAL: Patient is awake, alert and oriented x3. Cranial nerves 2 through 12 are grossly intact. Results CBC & Chem 7: 08/04/19 18:00 10/22/19 18:00 Thrombosis Risk Factor Assmnt - Choose All That Apply Any of the Below Risk Factors Present?: No Other Risk Factors: No Other congenital or acquired thrombophilia - If yes, enter type in comment: No Thrombosis Risk Factor Assessment Level: Very Low Risk Assessment and Plan Plan: 1. Acute bilateral hydronephrosis, severe left-sided hydronephrosis. Consults with Dr. Ceballos and Dr. Loving appreciated. Continue Dilaudid or morphine for pain control, Zofran or Reglan for nausea 2. History of renal nutcracker syndrome. 3. Gastroesophageal reflux disease. 4. Osteoarthritis, generalized. Patient will be admitted to the hospital for a minimum of 2 night stay. Discharge plan: Patient will be transferred [facility] once all arrangements are completed. Impression and plan of care have been directed as dictated by the signing physician. Loli Ruiz nurse practitioner acting as scribe for signing physician.
[2019-08-06] MEDS ORDERED: CYANOCOBALAMIN 500 MCG TAB PO SCH (09:00)
[2019-08-06] MEDS ORDERED: MULTIVITAMINS, THERA 1 EACH TAB PO SCH (09:00)
== END 2019-08-05 15:22 | disposition short-term general hospital (02) | DRG 694 ==
LOC: EC 15:50 → 6PED 21:41
PROVIDERS: ADMIT Internal Medicine; ATTEND Internal Medicine
DX: N13.0 Hydronephrosis with ureteropelvic junction obstruction (principal); I87.1 Compression of vein; F33.9 Major depressive disorder, recurrent, unspecified; F41.1 Generalized anxiety disorder; K21.9 Gastro-esophageal reflux disease without esophagitis; M15.9 Polyosteoarthritis, unspecified; R01.1 Cardiac murmur, unspecified; K44.9 Diaphragmatic hernia without obstruction or gangrene; Z87.891 Personal history of nicotine dependence; Z79.899 Other long term (current) drug therapy; Z87.898 Personal history of other specified conditions; Z90.49 Acquired absence of other specified parts of digestive tract; Z82.49 Family history of ischemic heart disease and other diseases of the circulatory system; Z82.69 Family history of other diseases of the musculoskeletal system and connective tissue
CPT/HCPCS: 36415; 74177; 80053; 81003; 85027; 96361; 96374; 96375; 99284

== ENCOUNTER 2019-08-11 19:01 | Emergency (ER) | payer OTHER ==
[2019-08-11] MEDS ORDERED: HYDROmorphone 1 MG/ML 1 ML SYRINGE IVP STA (19:45)
[2019-08-11] MEDS ORDERED: SODIUM CHLORIDE 0.9% 1,000 ML IV STA (19:45)
[2019-08-11] MEDS ORDERED: ONDANSETRON 4 MG/2 ML VIAL IVP STA ×2 (19:45→22:21)
--- NOTE | 2019-08-11 20:01 | ED ---
Abdominal Pain HPI - General Chief Complaint: Abdominal Pain Stated Complaint: KIDNEY PROBLEM Time Seen by Provider: 08/11/19 19:22 Source: patient Mode of arrival: wheelchair Limitations: no limitations - History of Present Illness Initial Comments: 39-year-old female patient presents to the emergency department today for evaluation of left flank pain. Patient has history of renal nutcracker syndrome and hydronephrosis. Patient was admitted recently for similar complaint transferred to [facility] for further evaluation by vascular surgery. Patient states she was evaluated at [facility] and discharged home to follow-up outpatient with urology. She states that vascular there told her no surgical intervention was necessary. Patient does not feel this is accurate and returned today for further evaluation when her pain returned. Patient states that the pain seems to lessen when she lies down for extended periods of time but then returns when she goes about her usual routine. Patient states that the more she is up the worse her pain becomes. States she has been taking Robaxin and Roby at home which is not helping for her pain at this time. She states she has nausea but has not vomited. Denies any constipation or diarrhea. She denies any hematuria, dysuria, urinary frequency, urinary urgency. Patient denies any recent rash, shortness breath, chest pain, diarrhea, constipation, numbness, tingling, dizziness, weakness, headache, visual changes, or any other complaints. - Related Data Home Medications Medication Instructions Recorded Confirmed Cyanocobalamin [Vitamin B-12] 500 mcg PO DAILY 06/25/19 08/11/19 ALPRAZolam [Xanax] 0.5 mg PO HS PRN 08/04/19 08/11/19 Venlafaxine HCl ER [Effexor Xr] 75 mg PO DAILY 08/04/19 08/11/19 Docusate [Colace] 100 mg PO DAILY 08/11/19 08/11/19 HYDROcodone/APAP 5-325MG [Roby 1 tab PO TID PRN 08/11/19 08/11/19 5-325] Robaxin (Unknown Dose) 1 tab PO TID PRN 08/11/19 08/11/19 Previous Rx's Medication Instructions Recorded Ketorolac [Toradol] 10 mg PO Q6HR #12 tab 08/11/19 Ondansetron [Zofran ODT] 4 mg PO Q8HR PRN #10 tab 08/11/19 Tamsulosin HCl [Flomax] 0.4 mg PO DAILY #7 cap 08/11/19 Allergies Allergy/AdvReac Type Severity Reaction Status Date / Time No Known Allergies Allergy Verified 08/11/19 21:32 Review of Systems ROS Statement: Those systems with pertinent positive or pertinent negative responses have been documented in the HPI. ROS Other: All systems not noted in ROS Statement are negative. 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 Past Anesthesia/Blood Transfusion Reactions: Postoperative Nausea & Vomiting (PONV) Past Psychological History: Anxiety, Depression Smoking Status: Never smoker Past Alcohol Use History: None Reported Past Drug Use History: Marijuana - Past Family History Mother History Unknown: Yes Family Medical History: Fibromyalgia Additional Family Medical History / Comment(s): Mother is alive with history of Lyme's disease and fibromyalgia. Father History Unknown: Yes Additional Family Medical History / Comment(s): Biological father left when pt was a little girl. Brother(s) History Unknown: Yes Additional Family Medical History / Comment(s): Patient has 1 brother with no major medical problems. Sister(s) History Unknown: Yes Additional Family Medical History / Comment(s): Patient does not have any sisters. General Exam Limitations: no limitations General appearance: alert, in no apparent distress, other (Physical well- developed, well-nourished adult female patient in mild distress related to pain. Vital signs upon presentation are temperature 97.9F, pulse 85, respirations 17, blood pressure 123/86, pulse ox 98% on room air.) Eye exam: Present: normal appearance, PERRL, EOMI. Absent: scleral icterus, conjunctival injection, periorbital swelling ENT exam: Present: normal exam, normal oropharynx, mucous membranes moist Respiratory exam: Present: normal lung sounds bilaterally. Absent: respiratory distress, wheezes, rales, rhonchi, stridor Cardiovascular Exam: Present: regular rate, normal rhythm, normal heart sounds. Absent: systolic murmur, diastolic murmur, rubs, gallop, clicks GI/Abdominal exam: Present: soft, tenderness (Left upper quadrant), normal bowel sounds. Absent: distended, guarding, rebound, rigid Back exam: Present: normal inspection, CVA tenderness (R), CVA tenderness (L) Neurological exam: Present: alert, oriented X3, CN II-XII intact Psychiatric exam: Present: normal affect, normal mood Skin exam: Present: warm, dry, intact, normal color. Absent: rash Course Vital Signs 08/11/19 08/11/19 08/11/19 19:10 21:20 21:29 Temperature 97.9 F Pulse Rate 85 71 Respiratory 17 16 16 Rate Blood Pressure 123/86 108/75 O2 Sat by Pulse 98 98 Oximetry 08/11/19 23:09 Temperature 97.8 F Pulse Rate 64 Respiratory 16 Rate Blood Pressure 97/68 O2 Sat by Pulse 99 Oximetry Medical Decision Making - Medical Decision Making 39-year-old female patient percents to to the emergency department today for evaluation of left flank pain. Patient has history of renal nutcracker syndrome and hydronephrosis. Physical examination did reveal left CVA tenderness. Labs reviewed and were unremarkable. Renal function is within normal ranges. Urinalysis is negative for any evidence of infection. Upon reevaluation patient does report improved symptoms. She will be discharged and given a list of vascular surgeons at [facility]. She also is instructed to follow-up with urology as she has planned. She'll be given medications for home for symptom management. She is instructed to return for any new, worsening, or concerning symptoms. She verbalizes understanding and agrees with this plan. - Lab Data Result diagrams: 08/11/19 19:55 08/11/19 19:55 Lab Results 08/11/19 08/11/19 08/11/19 Range/Units 19:55 19:55 21:25 WBC 7.7 (3.8-10.6) k/uL RBC 4.89 (3.80-5.40) m/uL Hgb 14.5 (11.4-16.0) gm/dL Hct 42.4 (34.0-46.0) % MCV 86.7 (80.0-100.0) fL MCH 29.6 (25.0-35.0) pg MCHC 34.2 (31.0-37.0) g/dL RDW 11.8 (11.5-15.5) % Plt Count 250 (150-450) k/uL Neutrophils % 64 % Lymphocytes % 24 % Monocytes % 6 % Eosinophils % 2 % Basophils % 1 % Neutrophils # 5.0 (1.3-7.7) k/uL Lymphocytes # 1.9 (1.0-4.8) k/uL Monocytes # 0.5 (0-1.0) k/uL Eosinophils # 0.2 (0-0.7) k/uL Basophils # 0.1 (0-0.2) k/uL Sodium 138 (137-145) mmol/L Potassium 4.1 (3.5-5.1) mmol/L Chloride 105 (98-107) mmol/L Carbon Dioxide 23 (22-30) mmol/L Anion Gap 10 mmol/L BUN 14 (7-17) mg/dL Creatinine 0.85 (0.52-1.04) mg/dL Est GFR (CKD-EPI)AfAm >90 (>60 ml/min/1.73 sqM) Est GFR (CKD-EPI)NonAf 88 (>60 ml/min/1.73 sqM) Glucose 85 (74-99) mg/dL Calcium 9.6 (8.4-10.2) mg/dL Total Bilirubin 0.8 (0.2-1.3) mg/dL AST 53 H (14-36) U/L ALT 22 (9-52) U/L Alkaline Phosphatase 76 (38-126) U/L Total Protein 8.2 (6.3-8.2) g/dL Albumin 4.8 (3.5-5.0) g/dL Amylase 90 (30-110) U/L Lipase 151 (23-300) U/L Urine Color Light Yellow Urine Appearance Clear (Clear) Urine pH 5.5 (5.0-8.0) Ur Specific [place] 1.007 (1.001-1.035) Urine Protein Negative (Negative) Urine Glucose (UA) Negative (Negative) Urine Ketones Negative (Negative) Urine Blood Negative (Negative) Urine Nitrite Negative (Negative) Urine Bilirubin Negative (Negative) Urine Urobilinogen <2.0 (<2.0) mg/dL Ur Leukocyte Esterase Negative (Negative) - Radiology Data Radiology results: report reviewed Ultrasound of the kidneys and bladder was obtained. Report was reviewed in its entirety. Impression by Dr. Bell shows moderate left sided hydronephrosis. Disposition Clinical Impression: Left flank pain, Hydronephrosis, left Disposition: HOME SELF-CARE Condition: Good Instructions (If sedation given, give patient instructions): Flank Pain (ED), Hydronephrosis (ED) Additional Instructions: Take medication as directed. Contact vascular surgery to obtain an appointment. Follow-up with urology as planned. Return to the emergency department immediately for any new, worsening, or concerning symptoms. Prescriptions: Tamsulosin HCl [Flomax] 0.4 mg PO DAILY #7 cap Ketorolac [Toradol] 10 mg PO Q6HR #12 tab Ondansetron [Zofran ODT] 4 mg PO Q8HR PRN #10 tab PRN Reason: Nausea Is patient prescribed a controlled substance at d/c from ED?: No Referrals: Yennifer Mishra MD [Primary Care Provider] - 1-2 days Jose M Dejesus MD [STAFF PHYSICIAN] - 1-2 days Time of Disposition: 22:57
[2019-08-11 20:25] LABS: ALT 22 U/L (9-52); AST 53 U/L (14-36); African American GFR (CKD) >90 (>60 ml/min/1.73 sqM); Albumin 4.8 g/dL (3.5-5.0); Alkaline Phosphatase 76 U/L (38-126); Amylase 90 U/L (30-110); Anion Gap 10 mmol/L; Blood Urea Nitrogen 14 mg/dL (7-17); Calcium 9.6 mg/dL (8.4-10.2); Carbon Dioxide 23 mmol/L (22-30); Chloride 105 mmol/L (98-107); Glucose 85 mg/dL (74-99); Potassium 4.1 mmol/L (3.5-5.1); Sodium 138 mmol/L (137-145); Total Bilirubin 0.8 mg/dL (0.2-1.3); Total Protein 8.2 g/dL (6.3-8.2)
[2019-08-11 20:27] LABS: Basophils # (A) 0.1 k/uL (0-0.2); Basophils % (A) 1 %; Eosinophils # (A) 0.2 k/uL (0-0.7); Eosinophils % (A) 2 %; HCT 42.4 % (34.0-46.0); HGB 14.5 gm/dL (11.4-16.0); Lymphocytes # (A) 1.9 k/uL (1.0-4.8); Lymphocytes % (A) 24 %; MCH 29.6 pg (25.0-35.0); MCHC 34.2 g/dL (31.0-37.0); MCV 86.7 fL (80.0-100.0); Mean Platelet Volume 6.8; Monocytes # (A) 0.5 k/uL (0-1.0); Monocytes % (A) 6 %; Neutrophils % (A) 64 %; Platelet Count 250 k/uL (150-450); RBC 4.89 m/uL (3.80-5.40); RDW 11.8 % (11.5-15.5); WBC 7.7 k/uL (3.8-10.6)
[2019-08-11 21:21] VITALS: RESP 16
[2019-08-11 21:34] LABS: Appearance,Urine Clear (Clear); Bilirubin,Urine Negative (Negative); Blood,Urine Negative (Negative); Color,Urine Light Yellow; Glucose,Urine (UA) Negative (Negative); Ketones,Urine Negative (Negative); Leukocyte Esterase,Urine Negative (Negative); Nitrite,Urine Negative (Negative); PH, Urine 5.5 (5.0-8.0); Protein,Urine Negative (Negative); Specific Gravity,Urine 1.007 (1.001-1.035); Urobilinogen,Urine <2.0 mg/dL (<2.0)
--- NOTE | 2019-08-11 21:37 | US ---
EXAMINATION TYPE: US kidneys/renal and bladder DATE OF EXAM: 08/11/2019 COMPARISON: CT, US CLINICAL HISTORY: Left flank pain; hx nutcracker syndrome. Left flank pain x 7 hours. Hx nutcracker s yndrome. Hx hydronephrosis. Cholecystectomy. EXAM MEASUREMENTS: Right Kidney: 11.0 x 5.6 x 3.8 cm Left Kidney: 13.1 x 6.0 x 7.2 cm Right Kidney: No hydronephrosis or masses seen, Minimally dilated renal pelvis. Left Kidney: Appears enlarged. Moderate hydronephrosis documented. Bladder: appears anechoic Bilateral Jets seen: Only right-sided ureteral jet visualized during the examination. IMPRESSION: MODERATE LEFT-SIDED HYDRONEPHROSIS.
[2019-08-11] MEDS ORDERED: KETOROLAC 30 MG/ML 1 ML VIAL IVP STA (22:21)
[2019-08-11 23:11] VITALS: BP 97/68; PULSE 64; TEMP 97.8
== END 2019-08-11 23:05 | disposition home or self-care (01) ==
LOC: EC 19:01
DX: N13.30 Unspecified hydronephrosis (principal); F41.9 Anxiety disorder, unspecified; F32.9 Major depressive disorder, single episode, unspecified; Z79.899 Other long term (current) drug therapy; Z90.49 Acquired absence of other specified parts of digestive tract
CPT/HCPCS: 36415; 80053; 82150; 83690; 85025; 81003; 76770; 99284; 96374; 96375 ×2; 96376; 96361 ×2; J2405; J1885; J1170

== ENCOUNTER 2019-09-02 21:02 | Emergency (ER) | payer OTHER ==
[2019-09-02 21:08] VITALS: TEMP 98.1
--- NOTE | 2019-09-02 21:15 | ED ---
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 Patient reports she's been healing well, she's been able to tolerate small meals, she's been urinating and having very small bowel movements. She followed up with her surgeon earlier this week and was determined to be recovering quite nicely. She states that she woke this morning having episodes of stabbing left-sided flank pain. Patient reports she's had these episodes off and on throughout the day today. She states that do not nearly as severe as the pain she was having prior to the surgery couple weeks ago however because she is postop she wanted to be evaluated. Patient states that she took her normal prescribed Xanax as well as one [place] this evening and her pain is quite manageable now however given that she is postoperative she just wanted to be evaluated. - Related Data Home Medications Medication Instructions Recorded Confirmed Cyanocobalamin [Vitamin B-12] 500 mcg PO DAILY 06/25/19 08/11/19 ALPRAZolam [Xanax] 0.5 mg PO HS PRN 08/04/19 08/11/19 Venlafaxine HCl ER [Effexor Xr] 75 mg PO DAILY 08/04/19 08/11/19 Docusate [Colace] 100 mg PO DAILY 08/11/19 08/11/19 RX: HYDROcodone/APAP 5-325MG 1 tab PO TID PRN 08/11/19 08/11/19 [[place] 5-325] Robaxin (Unknown Dose) 1 tab PO TID PRN 08/11/19 08/11/19 Previous Rx's Medication Instructions Recorded Ketorolac [Toradol] 10 mg PO Q6HR #12 tab 08/11/19 Ondansetron [Zofran ODT] 4 mg PO Q8HR PRN #10 tab 08/11/19 Tamsulosin HCl [Flomax] 0.4 mg PO DAILY #7 cap 08/11/19 Allergies Allergy/AdvReac Type Severity Reaction Status Date / Time No Known Allergies Allergy Verified 09/02/19 21:06 Review of Systems ROS Statement: Those systems with pertinent positive or pertinent negative responses have been documented in the HPI. ROS Other: All systems not noted in ROS Statement are negative. 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 Abdominal surgery and kidney Past Anesthesia/Blood Transfusion Reactions: Postoperative Nausea & Vomiting (PONV) Past Psychological History: Anxiety, Depression Smoking Status: Never smoker Past Alcohol Use History: None Reported Past Drug Use History: Marijuana - Past Family History Mother History Unknown: Yes Family Medical History: Fibromyalgia Additional Family Medical History / Comment(s): Mother is alive with history of Lyme's disease and fibromyalgia. Father History Unknown: Yes Additional Family Medical History / Comment(s): Biological father left when pt was a little girl. Brother(s) History Unknown: Yes Additional Family Medical History / Comment(s): Patient has 1 brother with no major medical problems. Sister(s) History Unknown: Yes Additional Family Medical History / Comment(s): Patient does not have any sisters. General Exam - General Exam Comments Initial Comments: Physical Exam GENERAL: Patient is well-developed and well-nourished. Patient is nontoxic and well-hydrated and is in no distress. HENT: Normocephalic, Atraumatic. EYES: PERRL, EOMI PULMONARY: Unlabored respirations. No audible rales rhonchi or wheezing was noted. CARDIOVASCULAR: There is a regular rate and rhythm without any murmurs gallops or rubs. ABDOMEN: Soft and nontender with normal bowel sounds. Well-healing laparoscopic surgical incisions SKIN: Skin is clear with no lesions or rashes and otherwise unremarkable. : Deferred NEUROLOGIC: Patient is alert and oriented x3. Moving all extremities spontaneously MUSCULOSKELETAL: Normal extremities with adequate strength and full range of motion. No lower extremity swelling or edema. No calf tenderness. PSYCHIATRIC: Normal psychiatric evaluation. Limitations: no limitations Course Vital Signs 09/02/19 09/02/19 21:03 23:12 Temperature 98.1 F 98.1 F Pulse Rate 83 77 Respiratory 16 18 Rate Blood Pressure 118/79 129/80 O2 Sat by Pulse 97 97 Oximetry Medical Decision Making - Medical Decision Making The patient was seen and evaluated, history is obtained from the patient and review of medical record Patient is approximately 2 weeks postop has had a good postoperative course and today is experiencing some intermittent left-sided flank pain. Considering that the patient has had 2 CT scans in the past one month decision was made to start with x-ray and ultrasound as well as lab work, to minimize patient's radiation exposure. Labs were relatively unremarkable there is no leukocytosis, no anemia, creatinine is 1.0, urinalysis and no signs of infection X-ray shows no signs of obstruction Ultrasound shows resolution of previously identified hydronephrosis Results were discussed with the patient who expresses relief. At this time patient's pain is manageable, patient is comfortable with outpatient follow-up with surgeon. Return parameters were discussed, all questions pertaining care were answered patient was discharged home in stable condition. - Lab Data Result diagrams: 09/02/19 21:35 09/02/19 21:35 Lab Results 09/02/19 09/02/19 09/02/19 Range/Units 21:35 21:35 21:35 WBC 6.7 (3.8-10.6) k/uL RBC 4.23 (3.80-5.40) m/uL Hgb 13.1 (11.4-16.0) gm/dL Hct 36.4 (34.0-46.0) % MCV 86.1 (80.0-100.0) fL MCH 30.9 (25.0-35.0) pg MCHC 35.9 (31.0-37.0) g/dL RDW 12.9 (11.5-15.5) % Plt Count 460 H (150-450) k/uL Neutrophils % 60 % Lymphocytes % 30 % Monocytes % 5 % Eosinophils % 3 % Basophils % 1 % Neutrophils # 4.0 (1.3-7.7) k/uL Lymphocytes # 2.0 (1.0-4.8) k/uL Monocytes # 0.4 (0-1.0) k/uL Eosinophils # 0.2 (0-0.7) k/uL Basophils # 0.1 (0-0.2) k/uL Sodium 140 (137-145) mmol/L Potassium 4.0 (3.5-5.1) mmol/L Chloride 105 (98-107) mmol/L Carbon Dioxide 25 (22-30) mmol/L Anion Gap 10 mmol/L BUN 11 (7-17) mg/dL Creatinine 1.05 H (0.52-1.04) mg/dL Est GFR (CKD-EPI)AfAm 78 (>60 ml/min/1.73 sqM) Est GFR (CKD-EPI)NonAf 68 (>60 ml/min/1.73 sqM) Glucose 92 (74-99) mg/dL Plasma Lactic Acid Tee (0.7-2.0) mmol/L Calcium 9.4 (8.4-10.2) mg/dL Total Bilirubin 0.4 (0.2-1.3) mg/dL AST 28 (14-36) U/L ALT 72 H (9-52) U/L Alkaline Phosphatase 62 (38-126) U/L Total Protein 7.5 (6.3-8.2) g/dL Albumin 4.4 (3.5-5.0) g/dL Urine Color Urine Appearance (Clear) Urine pH (5.0-8.0) Ur Specific [place] (1.001-1.035) Urine Protein (Negative) Urine Glucose (UA) (Negative) Urine Ketones (Negative) Urine Blood (Negative) Urine Nitrite (Negative) Urine Bilirubin (Negative) Urine Urobilinogen (<2.0) mg/dL Ur Leukocyte Esterase (Negative) Urine RBC (0-5) /hpf Urine WBC (0-5) /hpf Ur Squamous Epith Cells (0-4) /hpf Urine Bacteria (None) /hpf Urine Mucus (None) /hpf Urine HCG, Qual Not Detected (Not Detectd) 09/02/19 09/02/19 Range/Units 21:35 21:35 WBC (3.8-10.6) k/uL RBC (3.80-5.40) m/uL Hgb (11.4-16.0) gm/dL Hct (34.0-46.0) % MCV (80.0-100.0) fL MCH (25.0-35.0) pg MCHC (31.0-37.0) g/dL RDW (11.5-15.5) % Plt Count (150-450) k/uL Neutrophils % % Lymphocytes % % Monocytes % % Eosinophils % % Basophils % % Neutrophils # (1.3-7.7) k/uL Lymphocytes # (1.0-4.8) k/uL Monocytes # (0-1.0) k/uL Eosinophils # (0-0.7) k/uL Basophils # (0-0.2) k/uL Sodium (137-145) mmol/L Potassium (3.5-5.1) mmol/L Chloride (98-107) mmol/L Carbon Dioxide (22-30) mmol/L Anion Gap mmol/L BUN (7-17) mg/dL Creatinine (0.52-1.04) mg/dL Est GFR (CKD-EPI)AfAm (>60 ml/min/1.73 sqM) Est GFR (CKD-EPI)NonAf (>60 ml/min/1.73 sqM) Glucose (74-99) mg/dL Plasma Lactic Acid Tee 0.6 L (0.7-2.0) mmol/L Calcium (8.4-10.2) mg/dL Total Bilirubin (0.2-1.3) mg/dL AST (14-36) U/L ALT (9-52) U/L Alkaline Phosphatase (38-126) U/L Total Protein (6.3-8.2) g/dL Albumin (3.5-5.0) g/dL Urine Color Yellow Urine Appearance Clear (Clear) Urine pH 6.5 (5.0-8.0) Ur Specific [place] 1.017 (1.001-1.035) Urine Protein Trace H (Negative) Urine Glucose (UA) Negative (Negative) Urine Ketones Negative (Negative) Urine Blood Moderate H (Negative) Urine Nitrite Negative (Negative) Urine Bilirubin Negative (Negative) Urine Urobilinogen 2.0 (<2.0) mg/dL Ur Leukocyte Esterase Negative (Negative) Urine RBC <1 (0-5) /hpf Urine WBC 3 (0-5) /hpf Ur Squamous Epith Cells 2 (0-4) /hpf Urine Bacteria Few H (None) /hpf Urine Mucus Few H (None) /hpf Urine HCG, Qual (Not Detectd) Disposition Clinical Impression: Post-operative pain Disposition: HOME SELF-CARE Condition: Stable Instructions (If sedation given, give patient instructions): Flank Pain (ED) Is patient prescribed a controlled substance at d/c from ED?: No Referrals: Yennifer Mishra MD [Primary Care Provider] - 1-2 days
[2019-09-02] MEDS ORDERED: SODIUM CHLORIDE 0.9% 1,000 ML IV STA (21:29)
[2019-09-02] MEDS ORDERED: ONDANSETRON ODT 8 MG TAB.RAPDIS PO STA (21:29)
--- NOTE | 2019-09-02 21:52 | XR ---
EXAMINATION TYPE: XR abdomen 2V DATE OF EXAM: 09/02/2019 CLINICAL DATA: 39-year-old female with abdominal pain, [facility] COMPARISON: 06/25/2019 FINDINGS: Lung bases are clear. Some surgical material is seen within the left upper quadrant. Medication tablet projecting at the right side of the colon. Cholecystectomy clips. No dilated small bowel or air-fluid levels. No significant stool burden. Some scattered colonic air is present. No suspicious calcifications seen. IMPRESSION: No evidence for free air or bowel obstruction. Medication tablet seen projecting along the ascending colon. Surgical material left upper quadrant. Prior cholecystectomy.
[2019-09-02 21:53] LABS: Basophils # (A) 0.1 k/uL (0-0.2); Basophils % (A) 1 %; Eosinophils # (A) 0.2 k/uL (0-0.7); Eosinophils % (A) 3 %; HCT 36.4 % (34.0-46.0); HGB 13.1 gm/dL (11.4-16.0); Lymphocytes % (A) 30 %; MCH 30.9 pg (25.0-35.0); MCHC 35.9 g/dL (31.0-37.0); MCV 86.1 fL (80.0-100.0); Mean Platelet Volume 6.3; Monocytes # (A) 0.4 k/uL (0-1.0); Monocytes % (A) 5 %; Neutrophils % (A) 60 %; Platelet Count 460 k/uL (150-450); RBC 4.23 m/uL (3.80-5.40); RDW 12.9 % (11.5-15.5); WBC 6.7 k/uL (3.8-10.6)
[2019-09-02 21:56] LABS: Appearance,Urine Clear (Clear); Bacteria,Urine Few /hpf; Bilirubin,Urine Negative (Negative); Blood,Urine Moderate (Negative); Color,Urine Yellow; Glucose,Urine (UA) Negative (Negative); Ketones,Urine Negative (Negative); Leukocyte Esterase,Urine Negative (Negative); Mucus,Urine Few /hpf; Nitrite,Urine Negative (Negative); PH, Urine 6.5 (5.0-8.0); Protein,Urine Trace (Negative); RBC,Urine <1 /hpf (0-5); Specific Gravity,Urine 1.017 (1.001-1.035); Squamous Epithelial Cell,Urine 2 /hpf (0-4)
[2019-09-02 22:03] LABS: Albumin 4.4 g/dL (3.5-5.0); Calcium 9.4 mg/dL (8.4-10.2); Total Bilirubin 0.4 mg/dL (0.2-1.3); Total Protein 7.5 g/dL (6.3-8.2)
--- NOTE | 2019-09-02 22:41 | US ---
EXAMINATION TYPE: US kidneys/renal and bladder DATE OF EXAM: 09/02/2019 COMPARISON: 08/11/2019 CLINICAL HISTORY: left flank pain, s/p ureteral surgery 2 weeks ago. Left flank pain x 14 hours. Uret eral surgery 2 weeks ago. Hx hydronephrosis. Hx nutcracker syndrome. EXAM MEASUREMENTS: Right Kidney: 11.1 x 5.2 x 4.1 cm Left Kidney: 11.5 x 4.5 x 4.9 cm Limited exam due to gas and rib shadow on left side. Patient in severe pain from recent surgery. Right Kidney: No hydronephrosis or masses seen Left Kidney: No hydronephrosis or masses seen Bladder: Undistended. Patient voided before exam. Bilateral Jets seen: No IMPRESSION: No renal mass or obstruction. Urinary bladder was almost empty during the exam. There is clearing of the left side hydronephrosis compared to old exam.
[2019-09-02 23:13] VITALS: BP 129/80; PULSE 77; RESP 18
== END 2019-09-02 23:13 | disposition home or self-care (01) ==
LOC: EC 21:02
DX: G89.18 Other acute postprocedural pain (principal); R10.9 Unspecified abdominal pain; M16.0 Bilateral primary osteoarthritis of hip; M17.0 Bilateral primary osteoarthritis of knee; M46.82 Other specified inflammatory spondylopathies, cervical region; F32.9 Major depressive disorder, single episode, unspecified; F41.9 Anxiety disorder, unspecified; Z79.891 Long term (current) use of opiate analgesic; Z79.899 Other long term (current) drug therapy; Z90.49 Acquired absence of other specified parts of digestive tract
CPT/HCPCS: 36415; 74019; 76770; 80053; 81001; 81025; 83605; 85025; 96360; 96361; 99284

== ENCOUNTER 2019-12-26 16:20 | Emergency (ER) | payer OTHER ==
[2019-12-26] MEDS ORDERED: SODIUM CHLORIDE 0.9% 1,000 ML IV STA (16:31)
[2019-12-26] MEDS ORDERED: ONDANSETRON 4 MG/2 ML VIAL IVP STA ×2 (16:49→17:56)
[2019-12-26] MEDS ORDERED: HYDROmorphone 0.5 MG/0.5 ML SYRINGE IVP STA ×2 (16:49→19:16)
--- NOTE | 2019-12-26 16:59 | ED ---
Abdominal Pain HPI - General Chief Complaint: Abdominal Pain Stated Complaint: Abd Pain Time Seen by Provider: 12/26/19 16:30 Source: patient, RN notes reviewed Mode of arrival: wheelchair Limitations: no limitations - History of Present Illness Initial Comments: This is a 39-year-old female presents emergency Department chief complaint left- sided abdominal pain. Patient states she's had increasing pain. She states in August she had surgery at [place] which she had surgery on the left kidney and bowel. 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 She states that this is corrected along with her bowel. Patient states that she's had issues with her abdomen and diet sensitive surgeries she's always had pain this is worse she's a urinary frequency no dysuria no fevers chills no chest pain or shortness breath. She states she feels bloated and she states is fairly any food at this time. - Related Data Home Medications Medication Instructions Recorded Confirmed ALPRAZolam [Xanax] 0.5 mg PO HS PRN 08/04/19 12/26/19 Venlafaxine HCl ER [Effexor Xr] 75 mg PO DAILY 08/04/19 12/26/19 Dextroamphetamine/Amphetamine 10 mg PO BID PRN 12/26/19 12/26/19 [Adderall] Docusate Sodium [Dok] 100 mg PO DAILY 12/26/19 12/26/19 Multivitamins, Thera [Multivitamin 1 tab PO DAILY 12/26/19 12/26/19 (formulary)] Allergies Allergy/AdvReac Type Severity Reaction Status Date / Time No Known Allergies Allergy Verified 12/26/19 17:43 Review of Systems ROS Statement: Those systems with pertinent positive or pertinent negative responses have been documented in the HPI. ROS Other: All systems not noted in ROS Statement are negative. 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 Abdominal surgery and kidney Past Anesthesia/Blood Transfusion Reactions: Postoperative Nausea & Vomiting (PONV) Past Psychological History: ADD/ADHD, Anxiety, Depression Smoking Status: Current some day smoker Past Alcohol Use History: None Reported Past Drug Use History: Marijuana - Past Family History Mother History Unknown: Yes Family Medical History: Fibromyalgia Additional Family Medical History / Comment(s): Mother is alive with history of Lyme's disease and fibromyalgia. Father History Unknown: Yes Additional Family Medical History / Comment(s): Biological father left when pt was a little girl. Brother(s) History Unknown: Yes Additional Family Medical History / Comment(s): Patient has 1 brother with no major medical problems. Sister(s) History Unknown: Yes Additional Family Medical History / Comment(s): Patient does not have any sisters. General Exam Limitations: no limitations General appearance: alert, in no apparent distress Head exam: Present: atraumatic, normocephalic, normal inspection Eye exam: Present: normal appearance, PERRL, EOMI. Absent: scleral icterus, conjunctival injection, periorbital swelling ENT exam: Present: normal exam, normal oropharynx, mucous membranes moist Neck exam: Present: normal inspection, full ROM. Absent: tenderness, meningismu s, lymphadenopathy Respiratory exam: Present: normal lung sounds bilaterally. Absent: respiratory distress, wheezes, rales, rhonchi, stridor Cardiovascular Exam: Present: regular rate, normal rhythm, normal heart sounds. Absent: systolic murmur, diastolic murmur, rubs, gallop, clicks GI/Abdominal exam: Present: soft, tenderness (Moderate to severe left-sided abdominal tenderness), normal bowel sounds. Absent: distended, guarding, rebound, rigid Back exam: Present: CVA tenderness (L). Absent: CVA tenderness (R) Neurological exam: Present: alert, oriented X3, CN II-XII intact Skin exam: Present: warm, dry, intact, normal color. Absent: rash Course Vital Signs 12/26/19 12/26/19 12/26/19 16:23 18:05 18:44 Temperature 98.2 F 97.8 F Pulse Rate 70 64 55 L Respiratory 18 16 16 Rate Blood Pressure 106/68 120/78 114/65 O2 Sat by Pulse 99 100 98 Oximetry Medical Decision Making - Medical Decision Making CT shows evidence of a lateral internal hernia on the left this is concerning given her history of surgery by Dr. Knight for SMA syndrome. I did discuss the case with the radiologist and was given more history to the radiologist and she still is concerned about the possibility of internal hernia case discussed with on-call surgery feels the patient should be evaluated by her surgeon for possible expiratory laparotomy. Patient's case discussed with [facility] accepts transfer - Lab Data Result diagrams: 12/26/19 16:58 12/26/19 16:58 Lab Results 12/26/19 12/26/19 12/26/19 Range/Units 16:58 16:58 16:58 WBC 4.3 (3.8-10.6) k/uL RBC 4.44 (3.80-5.40) m/uL Hgb 13.1 (11.4-16.0) gm/dL Hct 38.7 (34.0-46.0) % MCV 87.1 (80.0-100.0) fL MCH 29.5 (25.0-35.0) pg MCHC 33.9 (31.0-37.0) g/dL RDW 12.7 (11.5-15.5) % Plt Count 229 (150-450) k/uL Neutrophils % 57 % Lymphocytes % 31 % Monocytes % 6 % Eosinophils % 3 % Basophils % 1 % Neutrophils # 2.5 (1.3-7.7) k/uL Lymphocytes # 1.4 (1.0-4.8) k/uL Monocytes # 0.2 (0-1.0) k/uL Eosinophils # 0.1 (0-0.7) k/uL Basophils # 0.0 (0-0.2) k/uL Sodium 137 (137-145) mmol/L Potassium 3.8 (3.5-5.1) mmol/L Chloride 103 (98-107) mmol/L Carbon Dioxide 26 (22-30) mmol/L Anion Gap 8 mmol/L BUN 14 (7-17) mg/dL Creatinine 0.71 (0.52-1.04) mg/dL Est GFR (CKD-EPI)AfAm >90 (>60 ml/min/1.73 sqM) Est GFR (CKD-EPI)NonAf >90 (>60 ml/min/1.73 sqM) Glucose 92 (74-99) mg/dL Plasma Lactic Acid Tee (0.7-2.0) mmol/L Calcium 9.2 (8.4-10.2) mg/dL Total Bilirubin 0.4 (0.2-1.3) mg/dL AST 28 (14-36) U/L ALT 24 (4-34) U/L Alkaline Phosphatase 51 (38-126) U/L Total Protein 7.0 (6.3-8.2) g/dL Albumin 4.4 (3.5-5.0) g/dL Amylase 94 (30-110) U/L Lipase 376 H (23-300) U/L Urine Color Light Yellow Urine Appearance Clear (Clear) Urine pH 6.5 (5.0-8.0) Ur Specific [place] 1.010 (1.001-1.035) Urine Protein Negative (Negative) Urine Glucose (UA) Negative (Negative) Urine Ketones Negative (Negative) Urine Blood Negative (Negative) Urine Nitrite Negative (Negative) Urine Bilirubin Negative (Negative) Urine Urobilinogen <2.0 (<2.0) mg/dL Ur Leukocyte Esterase Negative (Negative) 12/26/19 Range/Units 16:58 WBC (3.8-10.6) k/uL RBC (3.80-5.40) m/uL Hgb (11.4-16.0) gm/dL Hct (34.0-46.0) % MCV (80.0-100.0) fL MCH (25.0-35.0) pg MCHC (31.0-37.0) g/dL RDW (11.5-15.5) % Plt Count (150-450) k/uL Neutrophils % % Lymphocytes % % Monocytes % % Eosinophils % % Basophils % % Neutrophils # (1.3-7.7) k/uL Lymphocytes # (1.0-4.8) k/uL Monocytes # (0-1.0) k/uL Eosinophils # (0-0.7) k/uL Basophils # (0-0.2) k/uL Sodium (137-145) mmol/L Potassium (3.5-5.1) mmol/L Chloride (98-107) mmol/L Carbon Dioxide (22-30) mmol/L Anion Gap mmol/L BUN (7-17) mg/dL Creatinine (0.52-1.04) mg/dL Est GFR (CKD-EPI)AfAm (>60 ml/min/1.73 sqM) Est GFR (CKD-EPI)NonAf (>60 ml/min/1.73 sqM) Glucose (74-99) mg/dL Plasma Lactic Acid Tee 0.6 L (0.7-2.0) mmol/L Calcium (8.4-10.2) mg/dL Total Bilirubin (0.2-1.3) mg/dL AST (14-36) U/L ALT (4-34) U/L Alkaline Phosphatase (38-126) U/L Total Protein (6.3-8.2) g/dL Albumin (3.5-5.0) g/dL Amylase (30-110) U/L Lipase (23-300) U/L Urine Color Urine Appearance (Clear) Urine pH (5.0-8.0) Ur Specific [place] (1.001-1.035) Urine Protein (Negative) Urine Glucose (UA) (Negative) Urine Ketones (Negative) Urine Blood (Negative) Urine Nitrite (Negative) Urine Bilirubin (Negative) Urine Urobilinogen (<2.0) mg/dL Ur Leukocyte Esterase (Negative) Disposition Clinical Impression: Internal hernia, Intractable abdominal pain, History of abdominal surgery, History of bowel resection Disposition: OTHER INSTITUTION NOT DEFINED Referrals: Yennifer Mishra MD [Primary Care Provider] - 1-2 days - Out of Hospital Transfer - Req. Specs Out of Hospital Transfer - Requested Specifics: Other Emergency Center ([facility]
[2019-12-26 17:18] LABS: Appearance,Urine Clear (Clear); Basophils % (A) 1 %; Bilirubin,Urine Negative (Negative); Blood,Urine Negative (Negative); Color,Urine Light Yellow; Eosinophils # (A) 0.1 k/uL (0-0.7); Eosinophils % (A) 3 %; Glucose,Urine (UA) Negative (Negative); HCT 38.7 % (34.0-46.0); HGB 13.1 gm/dL (11.4-16.0); Ketones,Urine Negative (Negative); Leukocyte Esterase,Urine Negative (Negative); Lymphocytes # (A) 1.4 k/uL (1.0-4.8); Lymphocytes % (A) 31 %; MCH 29.5 pg (25.0-35.0); MCHC 33.9 g/dL (31.0-37.0); MCV 87.1 fL (80.0-100.0); Mean Platelet Volume 7.8; Monocytes # (A) 0.2 k/uL (0-1.0); Monocytes % (A) 6 %; Neutrophils # (A) 2.5 k/uL (1.3-7.7); Neutrophils % (A) 57 %; Nitrite,Urine Negative (Negative); PH, Urine 6.5 (5.0-8.0); Platelet Count 229 k/uL (150-450); Protein,Urine Negative (Negative); RBC 4.44 m/uL (3.80-5.40); RDW 12.7 % (11.5-15.5); Urobilinogen,Urine <2.0 mg/dL (<2.0); WBC 4.3 k/uL (3.8-10.6)
[2019-12-26 17:20] LABS: ALT 24 U/L (4-34); AST 28 U/L (14-36); African American GFR (CKD) >90 (>60 ml/min/1.73 sqM); Albumin 4.4 g/dL (3.5-5.0); Alkaline Phosphatase 51 U/L (38-126); Amylase 94 U/L (30-110); Anion Gap 8 mmol/L; Blood Urea Nitrogen 14 mg/dL (7-17); Calcium 9.2 mg/dL (8.4-10.2); Carbon Dioxide 26 mmol/L (22-30); Chloride 103 mmol/L (98-107); Glucose 92 mg/dL (74-99); Non-African American GFR(CKD) >90 (>60 ml/min/1.73 sqM); Potassium 3.8 mmol/L (3.5-5.1); Sodium 137 mmol/L (137-145); Total Bilirubin 0.4 mg/dL (0.2-1.3)
[2019-12-26] MEDS ORDERED: HYDROmorphone 1 MG/ML 1 ML SYRINGE IVP STA (17:43)
--- NOTE | 2019-12-26 17:51 | CT ---
EXAMINATION TYPE: CT abdomen pelvis w con DATE OF EXAM: 12/26/2019 HISTORY: Left lower quadrant pain with history of bowel resection CT DLP: 716.3mGycm Automated Exposure Control for Dose Reduction was Utilized. CONTRAST: CT scan of the abdomen and pelvis is performed with IV Contrast, patient injected with 100 mL of Isov ue 300. COMPARISON: 08/04/2019 FINDINGS: LUNG BASES: Minimal left basilar subsegmental atelectasis. LIVER/GB: Liver is grossly unremarkable. Gallbladder surgically absent. PANCREAS: No significant abnormality is seen. SPLEEN: No splenomegaly. ADRENALS: No nodularity or thickening. KIDNEYS: A marked left-sided hydronephrosis seen on the prior exam of 08/04/2019 has markedly decreas ed however mild residual left hydroureteronephrosis persists. The kidneys enhance symmetrically. No r ight-sided hydronephrosis. BOWEL: There are clustered small bowel loops demonstrate small bowel wall thickening in the left uppe r quadrant situated to the left of the splenic flexure with tethering of the mesentery vasculature bolden ch as on image 19. Internal hernia is possible in this patient with prior bowel resection per history and surgical sutures along the greater curvature the stomach. UTERUS/ADNEXA: The uterus is retroverted and situated within the left adnexa with a small amount of f ree fluid in posterior cul-de-sac, likely physiologic in nature. Endometrial prominence likely relate s to the phase of menses. The cervix is poorly evaluated on CT. LYMPH NODES: No greater than 1cm abdominal or pelvic lymph nodes are appreciated. OSSEOUS STRUCTURES: No destructive process seen. IMPRESSION: 1. Clustered loops of prominent small bowel in the left upper quadrant displaced lateral to the splen ic flexure raising suspicion for internal hernia. 2. Small amount of free fluid in the pelvis, likely physiologic in nature. Heterogenous uterus is ret roverted in situated in the left adnexa. Heterogeneity is likely related to the phase of menses.
[2019-12-26] MEDS ORDERED: METOCLOPRAMIDE 5 MG/ML 2 ML VIAL IVP STA (19:45)
[2019-12-26] MEDS ORDERED: diphenhydrAMINE 50 MG/ML 1 ML VIAL IVP STA (19:45)
[2019-12-26 20:33] VITALS: BP 106/94; PULSE 61; RESP 18; TEMP 98.2
== END 2019-12-26 20:30 | disposition short-term general hospital (02) ==
LOC: EC 16:20
DX: K46.9 Unspecified abdominal hernia without obstruction or gangrene (principal); Z90.49 Acquired absence of other specified parts of digestive tract; Z98.890 Other specified postprocedural states; R35.0 Frequency of micturition; F32.9 Major depressive disorder, single episode, unspecified; F41.9 Anxiety disorder, unspecified; F90.9 Attention-deficit hyperactivity disorder, unspecified type; F17.200 Nicotine dependence, unspecified, uncomplicated; Z79.899 Other long term (current) drug therapy; Z87.19 Personal history of other diseases of the digestive system; Z87.448 Personal history of other diseases of urinary system
CPT/HCPCS: 99284; 96374; 96375 ×3; 96376 ×3; 96361; 36415; 80053; 82150; 83605; 83690; 85025; 81003; 74177; J1200; J2765; J2405; J1170 ×2; Q9967

== ENCOUNTER 2020-03-12 20:06 | Emergency (ER) | payer OTHER ==
[2020-03-12] MEDS ORDERED: IOPAMIDOL CONTRAST (ORAL USE) VIAL PO PRN (20:30)
[2020-03-12] MEDS ORDERED: ONDANSETRON 4 MG/2 ML VIAL IVP STA ×2 (20:37→23:41)
[2020-03-12] MEDS ORDERED: LORazepam 2 MG/ML INJ IV STA (20:37)
[2020-03-12] MEDS ORDERED: HYDROmorphone 1 MG/ML 1 ML SYRINGE IVP STA (20:37)
[2020-03-12 20:49] LABS: Basophils % (A) 1 %; Eosinophils # (A) 0.1 k/uL (0-0.7); Eosinophils % (A) 1 %; HGB 14.1 gm/dL (11.4-16.0); Lymphocytes # (A) 1.8 k/uL (1.0-4.8); Lymphocytes % (A) 28 %; MCH 31.5 pg (25.0-35.0); MCHC 35.1 g/dL (31.0-37.0); MCV 89.6 fL (80.0-100.0); Mean Platelet Volume 8.3; Monocytes # (A) 0.3 k/uL (0-1.0); Monocytes % (A) 5 %; Neutrophils # (A) 3.9 k/uL (1.3-7.7); Neutrophils % (A) 64 %; Platelet Count 259 k/uL (150-450); RBC 4.47 m/uL (3.80-5.40); RDW 12.2 % (11.5-15.5); WBC 6.2 k/uL (3.8-10.6)
--- NOTE | 2020-03-12 20:54 | ED ---
Abdominal Pain HPI - General Chief Complaint: Abdominal Pain Stated Complaint: Abdominal pain Time Seen by Provider: 03/12/20 20:18 Source: patient Mode of arrival: ambulatory Limitations: no limitations - History of Present Illness Initial Comments: 39yo female with history of SMA syndrome with gastrojejunostomy performed at [facility] presenting today for 1 day of epigastric/LUQ abdominal pain. patient states while work today she developed upper abdominal pain mostly epigastric/LUQ. Patinet states it is intense, denies radiation 07/23. patient denies chest pain/SOB. Patient states that she has had a couple of these episodes after her surgery in August for SMA syndrome performed by Dr. Knight. Patient denies hematochezia, emesis vomiting. Admits to nausea. Patient states the pain is so severe has brought her to her knees. Patient denies additional complaints she was concerned that she possibly had an obstruction as a skin that does occur as a complication from her recent surgical procedure. Patient however did note that she has been having normal bowel movements and denies constipation. - Related Data Home Medications Medication Instructions Recorded Confirmed ALPRAZolam [Xanax] 0.5 mg PO BID PRN 08/04/19 03/12/20 Venlafaxine HCl ER [Effexor Xr] 75 mg PO DAILY 08/04/19 03/12/20 Docusate Sodium [Dok] 100 mg PO DAILY 12/26/19 03/12/20 Multivitamins, Thera [Multivitamin 1 tab PO DAILY 12/26/19 03/12/20 (formulary)] Cyanocobalamin (Vitamin B-12) 1,000 mcg PO DAILY 03/12/20 03/12/20 [Vitamin B-12] Dextroamphetamine/Amphetamine 20 mg PO BID PRN 03/12/20 03/12/20 [Adderall] L.acidoph,Paracasei, B.lactis 1 cap PO DAILY 03/12/20 03/12/20 [Probiotic] Allergies Allergy/AdvReac Type Severity Reaction Status Date / Time No Known Allergies Allergy Verified 03/12/20 21:10 Review of Systems ROS Statement: Those systems with pertinent positive or pertinent negative responses have been documented in the HPI. ROS Other: All systems not noted in ROS Statement are negative. 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 Abdominal surgery and kidney Past Anesthesia/Blood Transfusion Reactions: Postoperative Nausea & Vomiting (PONV) Past Psychological History: ADD/ADHD, Anxiety, Depression Smoking Status: Current some day smoker Past Alcohol Use History: None Reported Past Drug Use History: Marijuana - Past Family History Mother History Unknown: Yes Family Medical History: Fibromyalgia Additional Family Medical History / Comment(s): Mother is alive with history of Lyme's disease and fibromyalgia. Father History Unknown: Yes Additional Family Medical History / Comment(s): Biological father left when pt was a little girl. Brother(s) History Unknown: Yes Additional Family Medical History / Comment(s): Patient has 1 brother with no major medical problems. Sister(s) History Unknown: Yes Additional Family Medical History / Comment(s): Patient does not have any sisters. General Exam - General Exam Comments Initial Comments: General: The patient is awake and alert, in no distress Eye: +3 mm pupils are equal, round and reactive to light, extra-ocular movements are intact. No nystagmus. There is normal conjunctiva bilaterally. No signs of icterus. Cardiovascular: There is a regular rate and rhythm. No murmur, rub or gallop is appreciated. Respiratory: Lungs are clear to auscultation, respirations are non-labored, breath sounds are equal. No wheezes, stridor, rales, or rhonchi. Gastrointestinal: Soft, non-distended, moderate-severe tenderness of epigastric region of the abdomen without masses or organomegaly noted. There is no rebound or guarding present. Musculoskeletal: Normal ROM, no tenderness. Strength 5/5. Sensation intact. Radial pulses equal bilaterally 2+. Neurological: A&O x 3. CN II-XII intact grossly, There are no obvious motor or sensory deficits. Coordination appears grossly intact. Speech is normal. Skin: Skin is warm and dry and no rashes or lesions are noted. Psychiatric: Cooperative, appropriate mood & affect, normal judgment. Limitations: no limitations Course Vital Signs 03/12/20 03/12/20 03/12/20 20:15 22:06 22:52 Temperature 98.1 F 98.2 F 98.1 F Pulse Rate 84 76 80 Respiratory 20 18 18 Rate Blood Pressure 128/96 114/78 123/89 O2 Sat by Pulse 100 100 100 Oximetry Medical Decision Making - Medical Decision Making 39-year-old female presenting today for chief complaint of epigastric abdominal pain. Found to have 3 times upper limit of normal lipase concerning for acute pancreatitis. Patient's previous levels do appear within normal limits. Patient has had history of SMA syndrome with gastrojejunostomy performed by Dr. Knight. Sensation has been consulted with a industrial pharmacist at, as well however is unfamiliar with the physician's name. Patient is requesting transfer for continuation of care to rule out [place]. Is appropriate secondary to patient's complicated surgical history and for the importance of continuity of care. Patient transferred in stable condition appearing well. NPO since arrival given aggressive IV hydration. [facility] accepted the transfer, I spoke with accepting physician. - Lab Data Result diagrams: 03/12/20 20:35 03/12/20 20:35 Lab Results 03/12/20 03/12/20 03/12/20 Range/Units 20:35 20:35 20:35 WBC 6.2 (3.8-10.6) k/uL RBC 4.47 (3.80-5.40) m/uL Hgb 14.1 (11.4-16.0) gm/dL Hct 40.0 (34.0-46.0) % MCV 89.6 (80.0-100.0) fL MCH 31.5 (25.0-35.0) pg MCHC 35.1 (31.0-37.0) g/dL RDW 12.2 (11.5-15.5) % Plt Count 259 (150-450) k/uL Neutrophils % 64 % Lymphocytes % 28 % Monocytes % 5 % Eosinophils % 1 % Basophils % 1 % Neutrophils # 3.9 (1.3-7.7) k/uL Lymphocytes # 1.8 (1.0-4.8) k/uL Monocytes # 0.3 (0-1.0) k/uL Eosinophils # 0.1 (0-0.7) k/uL Basophils # 0.0 (0-0.2) k/uL Sodium 136 L (137-145) mmol/L Potassium 3.7 (3.5-5.1) mmol/L Chloride 104 (98-107) mmol/L Carbon Dioxide 22 (22-30) mmol/L Anion Gap 10 mmol/L BUN 10 (7-17) mg/dL Creatinine 0.67 (0.52-1.04) mg/dL Est GFR (CKD-EPI)AfAm >90 (>60 ml/min/1.73 sqM) Est GFR (CKD-EPI)NonAf >90 (>60 ml/min/1.73 sqM) Glucose 84 (74-99) mg/dL Plasma Lactic Acid Tee 1.4 (0.7-2.0) mmol/L Calcium 9.5 (8.4-10.2) mg/dL Total Bilirubin 0.6 (0.2-1.3) mg/dL AST 32 (14-36) U/L ALT 21 (4-34) U/L Alkaline Phosphatase 59 (38-126) U/L Total Protein 7.5 (6.3-8.2) g/dL Albumin 4.6 (3.5-5.0) g/dL Amylase 244 H (30-110) U/L Lipase 1106 H (23-300) U/L Urine Color Urine Appearance (Clear) Urine pH (5.0-8.0) Ur Specific [place] (1.001-1.035) Urine Protein (Negative) Urine Glucose (UA) (Negative) Urine Ketones (Negative) Urine Blood (Negative) Urine Nitrite (Negative) Urine Bilirubin (Negative) Urine Urobilinogen (<2.0) mg/dL Ur Leukocyte Esterase (Negative) Urine RBC (0-5) /hpf Urine WBC (0-5) /hpf Ur Squamous Epith Cells (0-4) /hpf Urine Mucus (None) /hpf Urine HCG, Qual (Not Detectd) 03/12/20 03/12/20 Range/Units 20:49 20:49 WBC (3.8-10.6) k/uL RBC (3.80-5.40) m/uL Hgb (11.4-16.0) gm/dL Hct (34.0-46.0) % MCV (80.0-100.0) fL MCH (25.0-35.0) pg MCHC (31.0-37.0) g/dL RDW (11.5-15.5) % Plt Count (150-450) k/uL Neutrophils % % Lymphocytes % % Monocytes % % Eosinophils % % Basophils % % Neutrophils # (1.3-7.7) k/uL Lymphocytes # (1.0-4.8) k/uL Monocytes # (0-1.0) k/uL Eosinophils # (0-0.7) k/uL Basophils # (0-0.2) k/uL Sodium (137-145) mmol/L Potassium (3.5-5.1) mmol/L Chloride (98-107) mmol/L Carbon Dioxide (22-30) mmol/L Anion Gap mmol/L BUN (7-17) mg/dL Creatinine (0.52-1.04) mg/dL Est GFR (CKD-EPI)AfAm (>60 ml/min/1.73 sqM) Est GFR (CKD-EPI)NonAf (>60 ml/min/1.73 sqM) Glucose (74-99) mg/dL Plasma Lactic Acid Tee (0.7-2.0) mmol/L Calcium (8.4-10.2) mg/dL Total Bilirubin (0.2-1.3) mg/dL AST (14-36) U/L ALT (4-34) U/L Alkaline Phosphatase (38-126) U/L Total Protein (6.3-8.2) g/dL Albumin (3.5-5.0) g/dL Amylase (30-110) U/L Lipase (23-300) U/L Urine Color Yellow Urine Appearance Clear (Clear) Urine pH 5.5 (5.0-8.0) Ur Specific [place] 1.034 (1.001-1.035) Urine Protein 1+ H (Negative) Urine Glucose (UA) Negative (Negative) Urine Ketones 1+ H (Negative) Urine Blood Negative (Negative) Urine Nitrite Negative (Negative) Urine Bilirubin Negative (Negative) Urine Urobilinogen 2.0 (<2.0) mg/dL Ur Leukocyte Esterase Negative (Negative) Urine RBC 2 (0-5) /hpf Urine WBC 1 (0-5) /hpf Ur Squamous Epith Cells 1 (0-4) /hpf Urine Mucus Many H (None) /hpf Urine HCG, Qual Not Detected (Not Detectd) Disposition Clinical Impression: Pancreatitis, Abdominal pain Disposition: OTHER INSTITUTION NOT DEFINED Condition: Stable Is patient prescribed a controlled substance at d/c from ED?: No Referrals: Yennifer Mishra MD [Primary Care Provider] - 1-2 days Time of Disposition: 21:11 - Out of Hospital Transfer - Req. Specs Out of Hospital Transfer - Requested Specifics: Other Emergency Center ([facility])
[2020-03-12 21:01] LABS: ALT 21 U/L (4-34); AST 32 U/L (14-36); African American GFR (CKD) >90 (>60 ml/min/1.73 sqM); Albumin 4.6 g/dL (3.5-5.0); Alkaline Phosphatase 59 U/L (38-126); Amylase 244 U/L (30-110); Anion Gap 10 mmol/L; Blood Urea Nitrogen 10 mg/dL (7-17); Calcium 9.5 mg/dL (8.4-10.2); Carbon Dioxide 22 mmol/L (22-30); Chloride 104 mmol/L (98-107); Glucose 84 mg/dL (74-99); Non-African American GFR(CKD) >90 (>60 ml/min/1.73 sqM); Potassium 3.7 mmol/L (3.5-5.1); Sodium 136 mmol/L (137-145); Total Bilirubin 0.6 mg/dL (0.2-1.3); Total Protein 7.5 g/dL (6.3-8.2)
[2020-03-12 21:03] LABS: Appearance,Urine Clear (Clear); Bilirubin,Urine Negative (Negative); Blood,Urine Negative (Negative); Color,Urine Yellow; Glucose,Urine (UA) Negative (Negative); Ketones,Urine 1+ (Negative); Leukocyte Esterase,Urine Negative (Negative); Mucus,Urine Many /hpf; Nitrite,Urine Negative (Negative); PH, Urine 5.5 (5.0-8.0); Protein,Urine 1+ (Negative); RBC,Urine 2 /hpf (0-5); Specific Gravity,Urine 1.034 (1.001-1.035); Squamous Epithelial Cell,Urine 1 /hpf (0-4); WBC,Urine 1 /hpf (0-5)
[2020-03-12] MEDS ORDERED: SODIUM CHLORIDE 0.9% 1,000 ML IV ONE (21:10)
[2020-03-12] MEDS ORDERED: SODIUM CHLORIDE 0.9% 500 ML 500 ML IV ONE (21:10)
[2020-03-12] MEDS ORDERED: SODIUM CHLORIDE 0.9% 1,000 ML IV SCH (21:15)
[2020-03-12 22:08] VITALS: RESP 18
--- NOTE | 2020-03-12 22:08 | CT ---
EXAMINATION TYPE: CT abdomen pelvis w con DATE OF EXAM: 03/12/2020 COMPARISON: 12/26/2019 HISTORY: Prior Gastric Bypass. History of SMA nutcracker syndrome. Genearlized pain CT DLP: 692.3 mGycm Automated exposure control for dose reduction was used. CONTRAST: Performed with IV Contrast, patient injected with 100 mL of Isovue 300. Lung bases are clear. There is no pleural effusion. Heart size is normal. There is no pericardial eff usion. There are surgical clips at the greater curvature of the stomach. There are clips from cholecy stectomy. The bile ducts are not dilated. Common bile duct measures up to 1 cm. Spleen appears normal . There is no pancreatic mass. There is gastrojejunal anastomosis. There is mild dilation of the jeju num distal to the anastomosis up to 4 cm. There is no adrenal mass. Kidneys show satisfactory contrast opacification. There is no hydronephrosi s. Delayed images show normal renal excretion. Ureters are not dilated. There is no retroperitoneal a denopathy. There is no inguinal hernia. Bladder distends smoothly. There is no evidence of a pelvic mass. Uterus is retroverted. There is no free fluid in the pelvis. There is no mesenteric edema. There is no asci ken or free air. There is no sign of a bowel obstruction. Appendix is not seen. No sign of thickened appendix. There is 1 cm hypodensity area in the pelvis that could be ingested medication with calcium in the di stal small bowel. There is similar object seen in the cecum. Lumbar vertebra have normal spacing and alignment. Posterior elements are intact. Bony pelvis is inta ct. IMPRESSION: No sign of acute abdomen and pelvis. Previous gastric bypass surgery. No significant change compared to old exam. Distended jejunum at the gastrojejunal anastomosis unchanged and of uncertain significan ce.
[2020-03-12] MEDS ORDERED: NALOXONE 0.4 MG/ML 1 ML VIAL IV PRN (22:17)
[2020-03-12] MEDS ORDERED: HYDROmorphone 0.5 MG/0.5 ML SYRINGE IVP PRN (22:17)
[2020-03-12 22:54] VITALS: BP 123/89; PULSE 80; TEMP 98.1
== END 2020-03-13 00:25 | disposition other institution (70) ==
LOC: EC 20:06
DX: K85.90 Acute pancreatitis without necrosis or infection, unspecified (principal); F41.9 Anxiety disorder, unspecified; F32.9 Major depressive disorder, single episode, unspecified; F17.200 Nicotine dependence, unspecified, uncomplicated; Z79.899 Other long term (current) drug therapy
CPT/HCPCS: 36415; 80053; 82150; 83605; 83690; 85025; 81001; 81025; 74177; 99285; 96374; 96375 ×2; 96376; 96361 ×3; J2060; J2405; J1170; Q9967

== ENCOUNTER → 2020-06-27 | Outpatient (CLI) | payer OTHER | END | disposition home or self-care (01) | LOC: LABWHC1 11:25 | PROVIDERS: ATTEND Family Medicine | DX: R50.9 Fever, unspecified (principal); R53.81 Other malaise | CPT/HCPCS: U0003; C9803 ==

== ENCOUNTER → 2020-10-03 | Outpatient (CLI) | payer OTHER ==
[2020-10-03 14:06] LABS: Basophils # (A) 0.1 k/uL (0-0.2); Basophils % (A) 2 %; Eosinophils # (A) 0.1 k/uL (0-0.7); Eosinophils % (A) 2 %; HCT 43.4 % (34.0-46.0); HGB 14.7 gm/dL (11.4-16.0); Lymphocytes # (A) 1.4 k/uL (1.0-4.8); Lymphocytes % (A) 33 %; MCH 31.4 pg (25.0-35.0); MCHC 33.9 g/dL (31.0-37.0); MCV 92.7 fL (80.0-100.0); Monocytes # (A) 0.3 k/uL (0-1.0); Monocytes % (A) 6 %; Neutrophils # (A) 2.4 k/uL (1.3-7.7); Neutrophils % (A) 55 %; Platelet Count 231 k/uL (150-450); RBC 4.68 m/uL (3.80-5.40); RDW 11.6 % (11.5-15.5); WBC 4.3 k/uL (3.8-10.6)
[2020-10-03 18:41] LABS: INR 1.01 (0.90-1.11); Partial Thromboplastin Time 26.7 sec (23.5-31.0); Prothrombin Time 10.9 sec (9.9-11.9)
[2020-10-03 19:13] LABS: Protein, Total 7.3 g/dL (6.2-8.2)
[2020-10-03 20:40] LABS: African American GFR (CKD) 108.4 (60.0-200.0); Albumin/Globulin Ratio 2.08 (1.60-3.17); BUN/Creat Ratio 12.5 Ratio (12.00-20.00); Calcium 9.9 mg/dL (8.7-10.3); Globulin 2.4 g/dL (1.6-3.3); Non-African American GFR(CKD) 93.5 (60.0-200.0); Total Bilirubin 0.9 mg/dL (0.3-1.2); Total Protein 7.4 g/dL (6.2-8.2)
[2020-10-04 13:18] LABS: Albumin 4.59 g/dL (3.80-4.90); Gamma Globulin 1.12 g/dL (0.70-1.50)
== END | disposition home or self-care (01) ==
LOC: LABWHC1 12:37
PROVIDERS: ATTEND Family Medicine
DX: K31.84 Gastroparesis (principal); K91.1 Postgastric surgery syndromes
CPT/HCPCS: 36415; 80053; 82525; 82607; 83690; 84134; 84165; 84443; 85025; 85610; 85730

== ENCOUNTER 2021-04-29 23:00 | Emergency (ER) | payer OTHER ==
[2021-04-29 23:05] VITALS: TEMP 98
[2021-04-30] MEDS ORDERED: diphenhydrAMINE 50 MG/ML 1 ML VIAL IVP STA (00:11)
[2021-04-30] MEDS ORDERED: HYDROmorphone 0.5 MG/0.5 ML SYRINGE IVP STA (00:11)
[2021-04-30] MEDS ORDERED: SODIUM CHLORIDE 0.9% 1,000 ML IV ONE (00:11)
[2021-04-30] MEDS ORDERED: FAMOTIDINE 20 MG/2 ML VIAL IV STA (00:11)
[2021-04-30] MEDS ORDERED: methylPREDNISolone SOD SUCCI 125 MG/2 ML VIAL IM ONE (00:11)
[2021-04-30] MEDS ORDERED: LORazepam 2 MG/ML INJ IV STA (00:12)
[2021-04-30 00:56] LABS: Basophils # (A) 0.1 k/uL (0-0.2); Basophils % (A) 1 %; Eosinophils # (A) 0.1 k/uL (0-0.7); Eosinophils % (A) 1 %; HCT 37.8 % (34.0-46.0); HGB 13.6 gm/dL (11.4-16.0); Lymphocytes # (A) 1.9 k/uL (1.0-4.8); Lymphocytes % (A) 21 %; MCV 91.7 fL (80.0-100.0); Mean Platelet Volume 8.2; Monocytes # (A) 0.5 k/uL (0-1.0); Monocytes % (A) 6 %; Neutrophils # (A) 6.7 k/uL (1.3-7.7); Neutrophils % (A) 71 %; Platelet Count 219 k/uL (150-450); RBC 4.12 m/uL (3.80-5.40); RDW 11.9 % (11.5-15.5); WBC 9.4 k/uL (3.8-10.6)
[2021-04-30 01:05] LABS: ALT 32 U/L (4-34); AST 32 U/L (14-36); African American GFR (CKD) >90 (>60 ml/min/1.73 sqM); Albumin 3.6 g/dL (3.5-5.0); Alkaline Phosphatase 44 U/L (38-126); Anion Gap 4 mmol/L; Blood Urea Nitrogen 15 mg/dL (7-17); Calcium 9.1 mg/dL (8.4-10.2); Carbon Dioxide 28 mmol/L (22-30); Chloride 106 mmol/L (98-107); Glucose 86 mg/dL (74-99); Non-African American GFR(CKD) >90 (>60 ml/min/1.73 sqM); Potassium 3.3 mmol/L (3.5-5.1); Sodium 138 mmol/L (137-145); Total Bilirubin 0.3 mg/dL (0.2-1.3)
[2021-04-30] MEDS ORDERED: POTASSIUM CHLORIDE ER 20 MEQ TAB.ER PO STA (01:10)
--- NOTE | 2021-04-30 01:26 | ED ---
Skin/Abscess/FB HPI - General Chief complaint: Skin/Abscess/Foreign Body Stated complaint: Rash, poss allergic reaction Time Seen by Provider: 04/29/21 23:17 Source: patient Mode of arrival: ambulatory Limitations: no limitations - History of Present Illness Initial comments: 41 year-old female patient presents to the emergency department for evaluation of rash over her body. Patient states that it started about 14 days ago after she was out in the sun, swimming in a salt water pool, and applying sunscreen. She is unsure if any of these things contributed to the rash. States that it started as small bumps over her body and has worsened. States that the rash is spreading and is very painful. She did see her primary care physician, was diagnosed with sun poisoning, and started on prednisone 20mg daily. States she initially was using hydrocortisone cream, and now switched to calamine lotion. She denies any fever or chills. Denies any blisters or draining lesions. Denies any nausea, vomiting, or diarrhea. Denies any known allergies. Was recently on keflex for bilateral ear infection. - Related Data Home Medications Medication Instructions Recorded Confirmed ALPRAZolam [Xanax] 0.5 mg PO BID PRN 08/04/19 03/12/20 Venlafaxine HCl ER [Effexor Xr] 75 mg PO DAILY 08/04/19 03/12/20 Docusate Sodium [Dok] 100 mg PO DAILY 12/26/19 03/12/20 Multivitamins, Thera [Multivitamin 1 tab PO DAILY 12/26/19 03/12/20 (formulary)] Cyanocobalamin (Vitamin B-12) 1,000 mcg PO DAILY 03/12/20 03/12/20 [Vitamin B-12] Dextroamphetamine/Amphetamine 20 mg PO BID PRN 03/12/20 03/12/20 [Adderall] L.acidoph,Paracasei, B.lactis 1 cap PO DAILY 03/12/20 03/12/20 [Probiotic] Previous Rx's Medication Instructions Recorded Famotidine [Pepcid] 20 mg PO DAILY #5 tablet 04/30/21 predniSONE 50 mg PO DAILY #5 tablet 04/30/21 Allergies Allergy/AdvReac Type Severity Reaction Status Date / Time No Known Allergies Allergy Verified 03/12/20 21:10 Review of Systems ROS Statement: Those systems with pertinent positive or pertinent negative responses have been documented in the HPI. ROS Other: All systems not noted in ROS Statement are negative. 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 Abdominal surgery and kidney Past Anesthesia/Blood Transfusion Reactions: Postoperative Nausea & Vomiting (PONV) Past Psychological History: ADD/ADHD, Anxiety, Depression Smoking Status: Never smoker Past Alcohol Use History: None Reported Past Drug Use History: Marijuana - Past Family History Mother History Unknown: Yes Family Medical History: Fibromyalgia Additional Family Medical History / Comment(s): Mother is alive with history of Lyme's disease and fibromyalgia. Father History Unknown: Yes Additional Family Medical History / Comment(s): Biological father left when pt was a little girl. Brother(s) History Unknown: Yes Additional Family Medical History / Comment(s): Patient has 1 brother with no major medical problems. Sister(s) History Unknown: Yes Additional Family Medical History / Comment(s): Patient does not have any sisters. General Exam Limitations: no limitations General appearance: alert, in no apparent distress, other (Social well- developed, well-nourished adult female patient in no acute distress. Vital signs upon presentation are temperature 98.0F, pulse 76, respirations 18, blood pressure 136/100, pulse ox 98% on room air.) Respiratory exam: Present: normal lung sounds bilaterally. Absent: respiratory distress, wheezes, rales, rhonchi, stridor Cardiovascular Exam: Present: regular rate, normal rhythm, normal heart sounds. Absent: systolic murmur, diastolic murmur, rubs, gallop, clicks GI/Abdominal exam: Present: soft, normal bowel sounds. Absent: distended, tenderness, guarding, rebound, rigid Neurological exam: Present: alert, oriented X3, CN II-XII intact Psychiatric exam: Present: normal affect, normal mood Skin exam: Present: warm, dry, intact, normal color, rash (Generalized rash, discrete maculopapular lesions over extremities and trunk. Patchy erythema and scaly skin over the hips and low back. No vesicular lesions. No drainage. No surrounding erythema or swelling. ) Course Vital Signs 04/29/21 23:01 Temperature 98 F Pulse Rate 76 Respiratory 18 Rate Blood Pressure 136/100 O2 Sat by Pulse 98 Oximetry Medical Decision Making - Medical Decision Making 41-year-old female patient presents to the emergency department today for evaluation of rash. Physical examination did reveal patchy erythema with scaly skin over the hips and low back, discrete erythematous maculopapular lesions over the extremities and trunk. She is afebrile, vital signs. She is given IV fluids, pain medication. Labs reviewed and did reveal decreased potassium level 3.3. This was replaced orally. She'll be discharged with burst of prednisone 50 mg per day. Pepcid 20 mg daily. Instructed to apply hydrocortisone cream twice daily. She is instructed to follow-up with dermatology for further evaluation. Instructed to follow-up with her primary care physician for recheck in 1-2 days. Return parameters discussed in detail. She verbalizes understanding and agrees with this plan. Case discussed with my attending Dr. Celeste. - Lab Data Result diagrams: 04/30/21 00:11 04/30/21 00:11 Lab Results 04/30/21 04/30/21 Range/Units 00:11 00:11 WBC 9.4 (3.8-10.6) k/uL RBC 4.12 (3.80-5.40) m/uL Hgb 13.6 (11.4-16.0) gm/dL Hct 37.8 (34.0-46.0) % MCV 91.7 (80.0-100.0) fL MCH 33.0 (25.0-35.0) pg MCHC 36.0 (31.0-37.0) g/dL RDW 11.9 (11.5-15.5) % Plt Count 219 (150-450) k/uL MPV 8.2 Neutrophils % 71 % Lymphocytes % 21 % Monocytes % 6 % Eosinophils % 1 % Basophils % 1 % Neutrophils # 6.7 (1.3-7.7) k/uL Lymphocytes # 1.9 (1.0-4.8) k/uL Monocytes # 0.5 (0-1.0) k/uL Eosinophils # 0.1 (0-0.7) k/uL Basophils # 0.1 (0-0.2) k/uL Sodium 138 (137-145) mmol/L Potassium 3.3 L (3.5-5.1) mmol/L Chloride 106 (98-107) mmol/L Carbon Dioxide 28 (22-30) mmol/L Anion Gap 4 mmol/L BUN 15 (7-17) mg/dL Creatinine 0.62 (0.52-1.04) mg/dL Est GFR (CKD-EPI)AfAm >90 (>60 ml/min/1.73 sqM) Est GFR (CKD-EPI)NonAf >90 (>60 ml/min/1.73 sqM) Glucose 86 (74-99) mg/dL Calcium 9.1 (8.4-10.2) mg/dL Total Bilirubin 0.3 (0.2-1.3) mg/dL AST 32 (14-36) U/L ALT 32 (4-34) U/L Alkaline Phosphatase 44 (38-126) U/L Total Protein 6.0 L (6.3-8.2) g/dL Albumin 3.6 (3.5-5.0) g/dL Disposition Clinical Impression: Rash Disposition: HOME SELF-CARE Condition: Good Instructions (If sedation given, give patient instructions): Contact Dermatitis (ED), Acute Rash (ED) Additional Instructions: Take medications as directed. Continue to apply hydrocortisone cream twice daily over the affected areas. Follow-up with aco coordinator for further evaluation as soon as possible. Return to the emergency department for any new, worsening, or concerning symptoms. Prescriptions: Famotidine [Pepcid] 20 mg PO DAILY #5 tablet predniSONE 50 mg PO DAILY #5 tablet Is patient prescribed a controlled substance at d/c from ED?: No Referrals: Yennifer Mishra MD [Primary Care Provider] - 1-2 days Time of Disposition: 01:25
[2021-04-30] MEDS ORDERED: KETOROLAC 15 MG/ML 1 ML VIAL IVP STA (01:48)
[2021-04-30 02:14] VITALS: BP 129/80; PULSE 69; RESP 16
== END 2021-04-30 02:05 | disposition home or self-care (01) ==
LOC: EC 23:00
DX: L53.9 Erythematous condition, unspecified (principal)
CPT/HCPCS: 99283; 96374; 96375; 96361; 96372; 36415; 80053; 85025; J2060; J1200; J2930; J1885; J1170

== ENCOUNTER → 2021-06-23 | Outpatient (CLI) | payer OTHER ==
[2021-06-23 23:19] LABS: Basophils # (A) 0.04 X 10*3/uL (0.00-0.10); Basophils % (A) 0.6 %; Eosinophils # (A) 0.04 X 10*3/uL (0.04-0.35); Eosinophils % (A) 0.6 %; HCT 44.7 % (37.2-46.3); HGB 15.5 g/dL (12.0-15.0); Lymphocytes % (A) 13.9 %; MCHC 34.7 g/dL (32.0-37.0); MCV 95.3 fL (80.0-97.0); Mean Platelet Volume 10.6 fL (9.5-12.2); Monocytes # (A) 0.44 X 10*3/uL (0.20-1.00); Monocytes % (A) 6.1 %; Neutrophils # (A) 5.64 X 10*3/uL (1.80-7.70); Neutrophils % (A) 78.4 %; Platelet Count 305 X 10*3/uL (140-440); RBC 4.69 X 10*6/uL (4.10-5.20); RDW 12.2 % (11.5-14.5); WBC 7.19 X 10*3/uL (4.50-10.00)
[2021-06-24 05:37] LABS: African American GFR (CKD) 93.4 (60.0-200.0); Albumin 4.7 g/dL (3.80-4.90); Albumin/Globulin Ratio 1.74 (1.60-3.17); Anion Gap 11.6 mmol/L (4.00-12.00); Calcium 9.5 mg/dL (8.7-10.3); Carbon Dioxide 22.4 mmol/L (21.6-31.8); Globulin 2.7 g/dL (1.6-3.3); Non-African American GFR(CKD) 80.5 (60.0-200.0); Potassium 3.8 mmol/L (3.5-5.5); Total Bilirubin 0.8 mg/dL (0.2-1.2); Total Protein 7.4 g/dL (6.2-8.2)
[2021-06-24 05:45] LABS: T4, Free (Free Thyroxine) 1.1 ng/dL (0.80-1.80)
== END | disposition home or self-care (01) ==
LOC: LABWHC1 14:06
PROVIDERS: ATTEND Nurse Practitioner Family
DX: Z11.4 Encounter for screening for human immunodeficiency virus [HIV] (principal)
CPT/HCPCS: 36415; 80053; 84439; 84443; 85025; 86780; 87390

== ENCOUNTER 2021-10-02 14:29 | Emergency (ER) | payer OTHER, BC ==
[2021-10-02] MEDS ORDERED: SODIUM CHLORIDE 0.9% 1,000 ML IV STA (18:22)
[2021-10-02] MEDS ORDERED: METOCLOPRAMIDE 5 MG/ML 2 ML VIAL IVP STA (18:23)
[2021-10-02] MEDS ORDERED: HYDROmorphone 1 MG/ML 1 ML SYRINGE IM STA (18:23)
[2021-10-02] MEDS ORDERED: diphenhydrAMINE 50 MG/ML 1 ML VIAL IVP STA (18:23)
--- NOTE | 2021-10-02 18:23 | ED ---
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 She contacted her primary caregiver out of [facility] who advised her due to her multiple chronic medical condition she needed to be treated with multiple antibodies and recommended she come emergently to the ER. Patient reports that she's been having significant epigastric abdominal pain related to her gastroparesis which is worsened by the nausea of the illness. Patient's significant discomfort and is concerned she is dehydrated. - Related Data Home Medications Medication Instructions Recorded Confirmed Venlafaxine HCl ER [Effexor Xr] 75 mg PO DAILY 08/04/19 10/02/21 Multivitamins, Thera [Multivitamin 1 tab PO DAILY 12/26/19 10/02/21 (formulary)] Calcium Carbonate [Calcium] 600 mg PO DAILY 10/02/21 10/02/21 HYDROcodone/APAP 5-325MG [[place] 1 tab PO DAILY PRN 10/02/21 10/02/21 5-325] busPIRone HCl [Buspar] 10 mg PO DAILY 10/02/21 10/02/21 busPIRone HCl [Buspar] 20 mg PO HS 10/02/21 10/02/21 Allergies Allergy/AdvReac Type Severity Reaction Status Date / Time No Known Allergies Allergy Verified 10/02/21 22:24 Review of Systems ROS Statement: Those systems with pertinent positive or pertinent negative responses have been documented in the HPI. ROS Other: All systems not noted in ROS Statement are negative. 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 Abdominal surgery and kidney Past Anesthesia/Blood Transfusion Reactions: Postoperative Nausea & Vomiting (PONV) Past Psychological History: ADD/ADHD, Anxiety, Depression Smoking Status: Never smoker Past Alcohol Use History: None Reported Past Drug Use History: Marijuana - Past Family History Mother History Unknown: Yes Family Medical History: Fibromyalgia Additional Family Medical History / Comment(s): Mother is alive with history of Lyme's disease and fibromyalgia. Father History Unknown: Yes Additional Family Medical History / Comment(s): Biological father left when pt was a little girl. Brother(s) History Unknown: Yes Additional Family Medical History / Comment(s): Patient has 1 brother with no major medical problems. Sister(s) History Unknown: Yes Additional Family Medical History / Comment(s): Patient does not have any sisters. General Exam - General Exam Comments Initial Comments: Physical Exam GENERAL: Patient is well-developed and well-nourished. Patient is nontoxic and well-hydrated and is in no distress. HENT: Normocephalic, Atraumatic. EYES: PERRL, EOMI PULMONARY: Unlabored respirations. No audible rales rhonchi or wheezing was noted. CARDIOVASCULAR: There is a regular rate and rhythm without any murmurs gallops or rubs. ABDOMEN: Laparoscopic surgical incisions SKIN: Chronic rash in the right flank. : Deferred NEUROLOGIC: Patient is alert and oriented x3. Moving all extremities spontaneously MUSCULOSKELETAL: Normal extremities with adequate strength and full range of motion. No lower extremity swelling or edema. No calf tenderness. PSYCHIATRIC: Normal psychiatric evaluation. Limitations: no limitations Course Vital Signs 10/02/21 15:13 Temperature 98 F Pulse Rate 103 H Respiratory 18 Rate Blood Pressure 120/84 O2 Sat by Pulse 98 Oximetry Medical Decision Making - Medical Decision Making The patient was seen and evaluated, history was obtained from the patient review of medical record When the patient's multiple medical comorbidities Modicon antibodies were ordered, and addition patient ordered antiemetics and pain medications Patient received 3 doses of pain medications while in the emergency department due to her chronic abdominal pain but she felt better with stable for discharge home. She tolerated her monoclonal antibodies without reaction. Signs patient is afebrile, not tachycardic and is stable for discharge home - Lab Data Result diagrams: 10/02/21 19:03 10/02/21 19:03 Lab Results 10/02/21 10/02/21 10/02/21 Range/Units 16:10 19:03 19:03 WBC 4.5 (3.8-10.6) k/uL RBC 4.91 (3.80-5.40) m/uL Hgb 15.8 (11.4-16.0) gm/dL Hct 45.1 (34.0-46.0) % MCV 91.8 (80.0-100.0) fL MCH 32.3 (25.0-35.0) pg MCHC 35.1 (31.0-37.0) g/dL RDW 11.4 L (11.5-15.5) % Plt Count 259 (150-450) k/uL MPV 7.9 Neutrophils % 58 % Lymphocytes % 30 % Monocytes % 7 % Eosinophils % 1 % Basophils % 1 % Neutrophils # 2.6 (1.3-7.7) k/uL Lymphocytes # 1.4 (1.0-4.8) k/uL Monocytes # 0.3 (0-1.0) k/uL Eosinophils # 0.0 (0-0.7) k/uL Basophils # 0.0 (0-0.2) k/uL Sodium 139 (137-145) mmol/L Potassium 4.0 (3.5-5.1) mmol/L Chloride 103 (98-107) mmol/L Carbon Dioxide 24 (22-30) mmol/L Anion Gap 12 mmol/L BUN 9 (7-17) mg/dL Creatinine 0.69 (0.52-1.04) mg/dL Est GFR (CKD-EPI)AfAm >90 (>60 ml/min/1.73 sqM) Est GFR (CKD-EPI)NonAf >90 (>60 ml/min/1.73 sqM) Glucose 88 (74-99) mg/dL Plasma Lactic Acid Tee (0.7-2.0) mmol/L Calcium 9.7 (8.4-10.2) mg/dL Total Bilirubin 0.6 (0.2-1.3) mg/dL AST 37 H (14-36) U/L ALT 24 (4-34) U/L Alkaline Phosphatase 53 (38-126) U/L Total Protein 8.1 (6.3-8.2) g/dL Albumin 4.9 (3.5-5.0) g/dL Lipase 216 (23-300) U/L Urine Color Urine Appearance (Clear) Urine pH (5.0-8.0) Ur Specific [place] (1.001-1.035) Urine Protein (Negative) Urine Glucose (UA) (Negative) Urine Ketones (Negative) Urine Blood (Negative) Urine Nitrite (Negative) Urine Bilirubin (Negative) Urine Urobilinogen (<2.0) mg/dL Ur Leukocyte Esterase (Negative) Coronavirus (PCR) Detected A (Not Detectd) 10/02/21 10/02/21 Range/Units 19:03 21:16 WBC (3.8-10.6) k/uL RBC (3.80-5.40) m/uL Hgb (11.4-16.0) gm/dL Hct (34.0-46.0) % MCV (80.0-100.0) fL MCH (25.0-35.0) pg MCHC (31.0-37.0) g/dL RDW (11.5-15.5) % Plt Count (150-450) k/uL MPV Neutrophils % % Lymphocytes % % Monocytes % % Eosinophils % % Basophils % % Neutrophils # (1.3-7.7) k/uL Lymphocytes # (1.0-4.8) k/uL Monocytes # (0-1.0) k/uL Eosinophils # (0-0.7) k/uL Basophils # (0-0.2) k/uL Sodium (137-145) mmol/L Potassium (3.5-5.1) mmol/L Chloride (98-107) mmol/L Carbon Dioxide (22-30) mmol/L Anion Gap mmol/L BUN (7-17) mg/dL Creatinine (0.52-1.04) mg/dL Est GFR (CKD-EPI)AfAm (>60 ml/min/1.73 sqM) Est GFR (CKD-EPI)NonAf (>60 ml/min/1.73 sqM) Glucose (74-99) mg/dL Plasma Lactic Acid Tee 0.8 (0.7-2.0) mmol/L Calcium (8.4-10.2) mg/dL Total Bilirubin (0.2-1.3) mg/dL AST (14-36) U/L ALT (4-34) U/L Alkaline Phosphatase (38-126) U/L Total Protein (6.3-8.2) g/dL Albumin (3.5-5.0) g/dL Lipase (23-300) U/L Urine Color Yellow Urine Appearance Clear (Clear) Urine pH 5.5 (5.0-8.0) Ur Specific [place] 1.022 (1.001-1.035) Urine Protein Negative (Negative) Urine Glucose (UA) Negative (Negative) Urine Ketones Negative (Negative) Urine Blood Negative (Negative) Urine Nitrite Negative (Negative) Urine Bilirubin Negative (Negative) Urine Urobilinogen <2.0 (<2.0) mg/dL Ur Leukocyte Esterase Negative (Negative) Coronavirus (PCR) (Not Detectd) Disposition Clinical Impression: COVID-19 Disposition: HOME SELF-CARE Condition: Stable Additional Instructions: continue supportive care including staying hydrated, managing fever, taking immune support that is high is vitamin C, Vitamin D and Zinc Return to the ER for any worsening of your condition Is patient prescribed a controlled substance at d/c from ED?: No Referrals: Yennifer Mishra MD [Primary Care Provider] - 1-2 days
[2021-10-02] MEDS ORDERED: BAMLANIVIMAB (EUA) 700 MG, ETESEVIMAB (EUA) 1,400 MG in SODIUM CHLORIDE 0.9% 50 ML IVPB ONE (19:30)
[2021-10-02] MEDS ORDERED: SODIUM CHLORIDE 0.9% 50 ML IVPB ONE (19:30)
[2021-10-02 19:46] LABS: Basophils % (A) 1 %; Eosinophils % (A) 1 %; HCT 45.1 % (34.0-46.0); HGB 15.8 gm/dL (11.4-16.0); Lymphocytes # (A) 1.4 k/uL (1.0-4.8); Lymphocytes % (A) 30 %; MCH 32.3 pg (25.0-35.0); MCHC 35.1 g/dL (31.0-37.0); MCV 91.8 fL (80.0-100.0); Mean Platelet Volume 7.9; Monocytes # (A) 0.3 k/uL (0-1.0); Monocytes % (A) 7 %; Neutrophils # (A) 2.6 k/uL (1.3-7.7); Neutrophils % (A) 58 %; Platelet Count 259 k/uL (150-450); RBC 4.91 m/uL (3.80-5.40); RDW 11.4 % (11.5-15.5); WBC 4.5 k/uL (3.8-10.6)
[2021-10-02 20:01] LABS: ALT 24 U/L (4-34); AST 37 U/L (14-36); African American GFR (CKD) >90 (>60 ml/min/1.73 sqM); Albumin 4.9 g/dL (3.5-5.0); Alkaline Phosphatase 53 U/L (38-126); Anion Gap 12 mmol/L; Blood Urea Nitrogen 9 mg/dL (7-17); Calcium 9.7 mg/dL (8.4-10.2); Carbon Dioxide 24 mmol/L (22-30); Chloride 103 mmol/L (98-107); Glucose 88 mg/dL (74-99); Lipase 216 U/L (23-300); Non-African American GFR(CKD) >90 (>60 ml/min/1.73 sqM); Sodium 139 mmol/L (137-145); Total Bilirubin 0.6 mg/dL (0.2-1.3); Total Protein 8.1 g/dL (6.3-8.2)
[2021-10-02] MEDS ORDERED: HYDROmorphone 1 MG/ML 1 ML SYRINGE IVP STA ×2 (20:29→22:29)
[2021-10-02 21:22] LABS: Appearance,Urine Clear (Clear); Bilirubin,Urine Negative (Negative); Blood,Urine Negative (Negative); Color,Urine Yellow; Glucose,Urine (UA) Negative (Negative); Ketones,Urine Negative (Negative); Leukocyte Esterase,Urine Negative (Negative); Nitrite,Urine Negative (Negative); PH, Urine 5.5 (5.0-8.0); Protein,Urine Negative (Negative); Specific Gravity,Urine 1.022 (1.001-1.035); Urobilinogen,Urine <2.0 mg/dL (<2.0)
--- NOTE | 2021-10-02 21:55 | XR ---
EXAMINATION TYPE: XR chest 1V DATE OF EXAM: 10/02/2021 COMPARISON: NONE HISTORY: Short of breath TECHNIQUE: FINDINGS: Heart and mediastinum are normal. Lungs are clear. Diaphragm is normal. Bony thorax is inta ct. IMPRESSION: Normal chest.
[2021-10-02 23:06] VITALS: BP 128/74; PULSE 68; RESP 17; TEMP 98.4
== END 2021-10-02 23:06 | disposition home or self-care (01) ==
LOC: EC 14:29
DX: U07.1 COVID-19 (principal); Z90.49 Acquired absence of other specified parts of digestive tract
CPT/HCPCS: 36415; 80053; 83605; 83690; 85025; 81003; 87635; 71045; 99284; 96374; 96375; 96376; 96361; 96372; J1200; J2765; J1170; J3490

== ENCOUNTER → 2022-02-16 | Outpatient (CLI) | payer BC, OTHER ==
[2022-02-16 22:25] LABS: Basophils # (A) 0.06 X 10*3/uL (0.00-0.10); Basophils % (A) 1.1 %; Eosinophils # (A) 0.05 X 10*3/uL (0.04-0.35); Eosinophils % (A) 0.9 %; HCT 40.1 % (37.2-46.3); HGB 13.9 g/dL (12.0-15.0); Immature Grans, Automated 0.2 %; Lymphocytes % (A) 28.1 %; MCH 30.5 pg (27.0-32.0); MCHC 34.7 g/dL (32.0-37.0); MCV 87.9 fL (80.0-97.0); Mean Platelet Volume 11.1 fL (9.5-12.2); Monocytes # (A) 0.38 X 10*3/uL (0.20-1.00); Monocytes % (A) 6.7 %; NRBC Per 100 WBC 0 /100 WBCS (0.0-0.0); Neutrophils # (A) 3.59 X 10*3/uL (1.80-7.70); Platelet Count 259 X 10*3/uL (140-440); RBC 4.56 X 10*6/uL (4.10-5.20); RDW 11.7 % (11.5-14.5); WBC 5.69 X 10*3/uL (4.50-10.00)
[2022-02-16 23:30] LABS: Hepatitis A Antibody IgM Nonreactive (Nonreactive); Hepatitis B Core IgM Nonreactive (Nonreactive); Hepatitis B Surface Antigen Nonreactive (Nonreactive); Hepatitis C IgG Antibody Nonreactive (Nonreactive)
[2022-02-16 23:34] LABS: African American GFR (CKD) 105.6 (60.0-200.0); Albumin 4.5 g/dL (3.8-4.9); Albumin/Globulin Ratio 1.93 (1.60-3.17); Anion Gap 12.2 mmol/L (10.00-18.00); BUN/Creat Ratio 10.16 Ratio (12.00-20.00); Blood Urea Nitrogen 8.3 mg/dL (9.0-27.0); Calcium 9.4 mg/dL (8.7-10.3); Carbon Dioxide 23.3 mmol/L (20.0-27.5); Globulin 2.4 g/dL (1.6-3.3); HDL Cholesterol 64.3 mg/dL (40.00-60.00); Non-African American GFR(CKD) 91.1 (60.0-200.0); Total Bilirubin 0.6 mg/dL (0.30-1.20); Total Protein 6.9 g/dL (6.2-8.2); Triglycerides 44.9 mg/dL (0.00-149.00)
[2022-02-17 00:03] LABS: Chol/HDL Ratio 2.43 Ratio; LDL Cholesterol,Direct Reflex 82.5 mg/dL (0.00-129.00)
[2022-02-18 17:03] LABS: HSV I IgG Interp POSITIVE (NEGATIVE); HSV II IgG Interp NEGATIVE (NEGATIVE)
[2022-02-19 10:02] LABS: Angiotensin-1 Converting Enz. 57 U/L (8-52)
== END | disposition home or self-care (01) ==
LOC: LABWHC1 14:26
PROVIDERS: ATTEND Family Medicine
DX: K85.10 Biliary acute pancreatitis without necrosis or infection (principal); N39.0 Urinary tract infection, site not specified; B00.9 Herpesviral infection, unspecified; R10.9 Unspecified abdominal pain; F41.9 Anxiety disorder, unspecified
CPT/HCPCS: 36415; 80053; 80061; 80074; 82103; 82104; 82164; 82607; 82787; 82977; 83690; 83721; 84443; 85025; 86038; 86695; 86696; 87086

== ENCOUNTER → 2022-02-28 | Outpatient (CLI) | payer BC, OTHER ==
[2022-02-28 18:05] LABS: Immunoglobulin E 20.4 IU/mL (0.00-114.00)
[2022-02-28 21:33] LABS: HIV 2 AB Non-Reactive (Non-Reactive); HIV AB P24 Non-Reactive (Non-Reactive); HIV P24 AG Non-Reactive (Non-Reactive)
== END | disposition home or self-care (01) ==
LOC: LABWHC1 09:57
PROVIDERS: ATTEND Family Medicine
DX: D89.9 Disorder involving the immune mechanism, unspecified (principal); K85.10 Biliary acute pancreatitis without necrosis or infection
CPT/HCPCS: 36415; 82784; 82785; 83690; 87390

== ENCOUNTER → 2023-06-10 | Outpatient (CLI) | payer OTHER ==
--- NOTE | 2023-06-10 14:46 | US ---
EXAMINATION TYPE: US pelvic complete DATE OF EXAM: 06/10/2023 COMPARISON: 06/04/2022 CLINICAL INDICATION: Female, 43 years old with history of N95.0 POSTMENOPAUSAL BLEEDING; menopausal o n hormones been bleeding. TECHNIQUE: Transabdominal (TA). Transabdominal sonographic images of the pelvis were acquired. EXAM MEASUREMENTS: Uterus: 9.8 x 3.4 x 5.4 cm Endometrial Stripe: 0.7 cm Right Ovary: 3.58 x 1.1 x 1.5 cm Left Ovary: 3.2 x .9 x 2.8 cm 1. Uterus: Retroverted wnl 2. Endometrium: wnl 3. Right Ovary: wnl 4. Left Ovary: wnl 5. Bilateral Adnexa: wnl 6. Posterior cul-de-sac: wnl IMPRESSION: 1. No evidence for acute process. 2. Endometrium within normal limits for thickness.
[2023-06-10 19:56] LABS: Thyroid Peroxidase Antibodies 10.1 U/mL (0.0-33.0)
[2023-06-10 20:57] LABS: Basophils # (A) 0.05 X 10*3/uL (0.00-0.10); Basophils % (A) 1.3 %; Eosinophils # (A) 0.14 X 10*3/uL (0.04-0.35); Eosinophils % (A) 3.6 %; HCT 45.3 % (37.2-46.3); HGB 15.2 d/dL (12.0-15.0); Lymphocytes # (A) 1.03 X 10*3/uL (0.90-5.00); Lymphocytes % (A) 26.3 %; MCH 30.9 pg (27.0-32.0); MCHC 33.6 d/dL (32.0-37.0); MCV 92.1 FL (80.0-97.0); Monocytes # (A) 0.29 X 10*3/uL (0.20-1.00); Monocytes % (A) 7.4 %; NRBC Per 100 WBC 0 X 10*3/uL (0.00-0.01); Neutrophils # (A) 2.39 X 10*3/uL (1.80-7.70); Neutrophils % (A) 61.1 %; Platelet Count 248 X 10*3/uL (140-440); RBC 4.92 X 10*6/uL (4.10-5.20); WBC 3.91 X 10*3/uL (4.50-10.00)
[2023-06-10 21:02] LABS: ALT 31 U/L (8-44); AST 33 U/L (13-35); Albumin 4.9 d/dL (3.8-4.9); Albumin/Globulin Ratio 2.13 Ratio (1.60-3.17); Alkaline Phosphatase 66 U/L (41-126); Blood Urea Nitrogen 9.9 mg/dL (9.0-27.0); Calcium 9.6 mg/dL (8.7-10.3); Carbon Dioxide 26.5 mmol/L (21.6-31.8); Chloride 99 mmol/L (96-109); Globulin 2.3 d/dL (1.6-3.3); Glucose 88 mg/dL (70-110); LDL Cholesterol,Calculated 71.3 mg/dL (0.0-131.0); Sodium 135 mmol/L (135-145); T4, Free (Free Thyroxine) 1.22 ng/dL (0.80-1.80); Total Bilirubin 0.5 mg/dL (0.3-1.2); Total Protein 7.2 d/dL (6.2-8.2); VLDL Calculation 12.66 mg/dL (5.00-40.00)
[2023-06-10 22:13] LABS: HIV 2 AB Non-Reactive (Non-Reactive); HIV AB P24 Non-Reactive (Non-Reactive); HIV P24 AG Non-Reactive (Non-Reactive)
[2023-06-10 23:42] LABS: Cyclic Citrull Pep IgG Unit <1.5 U/mL (<=3.9); Cyclic Citrullinated Pep IgG Negative
== END | disposition home or self-care (01) ==
LOC: RADUSWWP 13:36
PROVIDERS: ATTEND Obstetrics & Gynecology
DX: Z13.220 Encounter for screening for lipoid disorders (principal); I88.1 Chronic lymphadenitis, except mesenteric; D89.9 Disorder involving the immune mechanism, unspecified; Z00.01 Encounter for general adult medical examination with abnormal findings; N95.0 Postmenopausal bleeding; F90.2 Attention-deficit hyperactivity disorder, combined type; R53.82 Chronic fatigue, unspecified; Z78.0 Asymptomatic menopausal state
CPT/HCPCS: 76856; 80053; 80061; 82024; 82306; 82533; 82607; 82784; 82785; 83036; 84439; 84443; 85025; 85379; 86038; 86200; 86376; 86618; 87390

== ENCOUNTER → 2023-07-15 | Outpatient (CLI) | payer OTHER ==
--- NOTE | 2023-07-16 20:54 | MM ---
Reason for Exam: Screening (asymptomatic). Patient History: Menarche at age 16. Patient has no children. Last menstrual period: 10/14/2020 Risk Values: Yuliana 5 year model risk: 0.6%. NCI Lifetime model risk: 10.1%. Prior Study Comparison: 04/06/2008 Right Diagnostic Ultrasound, [facility]. Tissue Density: The breast tissue is heterogeneously dense. This may lower the sensitivity of mammography. Findings: Analyzed By CAD. Within the right breast on the CC view, asymmetric density located medially at a middle depth as well as laterally at a posterior depth incompletely disperse on 3-D images. Also, on the right MLO view in the subareolar region also incompletely disperses. These areas may represent superimposition shadow but further evaluation is recommended. Otherwise, no significant mass, suspicious microcalcification, or other discrete abnormality is seen. Overall Assessment: Incomplete: need additional imaging evaluation, BI-RAD 0 Management: Special View Mammogram of the right breast. Diagnostic Breast Ultrasound of the right breast. Additional views to include spot 3-D CC (2 sites), spot 3-D MLO, and 3-D lateral views. Subsequent ultrasound for any persisting abnormality. [facility] will attempt to contact patient to return for supplemental views and ultrasound if indicated. Electronically signed and approved by: Ariane Leung M.D. Radiologist
== END | disposition home or self-care (01) ==
LOC: RADMAMWWP 13:09
PROVIDERS: ATTEND Obstetrics & Gynecology
DX: Z12.31 Encounter for screening mammogram for malignant neoplasm of breast (principal)
CPT/HCPCS: 77063; 77067

== ENCOUNTER → 2023-07-22 | Outpatient (CLI) | payer OTHER ==
--- NOTE | 2023-07-22 10:43 | MM ---
Reason for Exam: Additional evaluation requested from abnormal screening. Last screening mammogram was performed less than 1 month ago. Patient History: Menarche at age 16. Patient has no children. Maternal grandmother had breast cancer. Risk Values: Yuliana 5 year model risk: 0.6%. NCI Lifetime model risk: 10.1%. Prior Study Comparison: 04/06/2008 Right Diagnostic Ultrasound, [facility]. 07/15/2023 Bilateral MG 3D screening mammo w/cad, [facility]. Tissue Density: Right: The breast tissue is heterogeneously dense. This may lower the sensitivity of mammography. Findings: Analyzed By CAD. No new suspicious masses, calcifications or distortions. Overall Assessment: Incomplete: need additional imaging evaluation, BI-RAD 0 Management: Diagnostic Breast Ultrasound of the right breast. Results were given to the patient verbally at the time of exam. Patient should continue monthly self-breast exams. A clinical breast exam by your physician is recommended on an annual basis. This exam should not preclude additional follow-up of suspicious palpable abnormalities. Note on Yuliana scores and lifetime risk: 1. A Yuliana score greater than 3% is considered moderate risk. If this is the case, consider specialist referral to assess eligibility for a risk reducing agent. 2. If overall lifetime risk for the development of breast cancer is 20% or higher, the patient may qualify for future screening with alternating mammogram and breast MRI. Electronically signed and approved by: Sergio Diaz DO
--- NOTE | 2023-07-22 11:01 | USB ---
Reason for Exam: Additional evaluation requested from abnormal screening. Patient History: Menarche at age 16. Patient has no children. Maternal grandmother had breast cancer. Risk Values: Yuliana 5 year model risk: 0.6%. NCI Lifetime model risk: 10.1%. Technique: Method: Whole Breast Handheld. Prior Study Comparison: 07/15/2023 Bilateral MG 3D screening mammo w/cad, [facility]. Findings: The whole breast of the right breast, the axilla of the right breast and the retroareolar of the right breast were scanned. Technique utilized:US breast workup complete RT Image; Ultrasound imaging of: All 4 quadrants, the retroareolar region and axilla. Nothing to correlate with asymmetry seen on prior mammography. No evidence for organizing fluid collection or mass. Overall Assessment: Negative, BI-RAD 1 Management: Screening Mammogram of both breasts in 1 year. A clinical breast exam by your physician is recommended on an annual basis and results should be correlated with mammographic findings. This exam should not preclude additional follow-up of suspicious palpable abnormalities. Results were given to the patient verbally at the time of exam. Electronically signed and approved by: Sergio Diaz DO
== END | disposition home or self-care (01) ==
LOC: RADMAMWWP 10:08
PROVIDERS: ATTEND Obstetrics & Gynecology
DX: R92.8 Other abnormal and inconclusive findings on diagnostic imaging of breast (principal); Z80.3 Family history of malignant neoplasm of breast
CPT/HCPCS: 77065; 76641; G0279; 77061

== ENCOUNTER → 2023-08-26 | Outpatient (CLI) | payer OTHER ==
--- NOTE | 2023-08-26 12:20 | XR ---
EXAMINATION TYPE: XR chest 2V DATE OF EXAM: 08/26/2023 COMPARISON: 10/02/2021 HISTORY: Chest pain TECHNIQUE: Frontal and lateral views of the chest are obtained. FINDINGS: There is no focal air space opacity. No evidence for pneumothorax. No pleural effusion. The cardiac silhouette size is within normal limits. The osseous structures are grossly intact. IMPRESSION: 1. No acute cardiopulmonary process.
== END | disposition home or self-care (01) ==
LOC: RADXRMAIN 11:47
PROVIDERS: ATTEND Family Medicine
DX: R05.9 Cough, unspecified (principal); R07.9 Chest pain, unspecified
CPT/HCPCS: 71046